=== PATIENT | male | born 1945 | race Caucasian/White ===

== ENCOUNTER 2020-11-21 12:53 | Emergency (ER) | payer OTHER ==
[2020-11-21 13:59] LABS: Protime INR 1.38
[2020-11-21 14:00] LABS: Absolute Lymphocytes (CBC) 0.7 K/uL (0.7-4.9); Basophils % 1.2 % (0-1.3); Hematocrit 36.2 % (39.6-49.0); Lymphocytes % 13.9 % (15.3-44.8); MPV 10.9 fL (7.6-11.3); RBC Red Blood Cell Count 3.59 M/uL (4.33-5.43)
--- NOTE | 2020-11-21 14:10 | RAD REPORT ---
EXAM DESCRIPTION: RAD - Chest Single View - 11/21/2020 1:51 pm CLINICAL HISTORY: near syncope Chest pain. COMPARISON: No comparisons FINDINGS: Portable technique limits examination quality. The lungs are grossly clear. The heart is normal in size. No displaced fractures. IMPRESSION: No acute intrathoracic process suspected.
--- NOTE | 2020-11-21 14:11 | RAD REPORT ---
EXAM DESCRIPTION: RAD - Hip Left 2 View - 11/21/2020 1:51 pm CLINICAL HISTORY: PAIN COMPARISON: <Comparisons> FINDINGS: Mild osteoarthritis affects the left hip. No fracture, dislocation or AVN.
[2020-11-21 14:18] LABS: ALT/SGPT 58 U/L (12-78); AST/SGOT 58 U/L (15-37); Albumin 3.1 g/dL (3.4-5.0); Alkaline Phosphatase 164 U/L (45-117); BUN Blood Urea Nitrogen 26 mg/dL (7-18); Bicarbonate 25 mmol/L (21-32); Bilirubin Direct 0.5 mg/dL (0-0.2); Bilirubin Total 1.3 mg/dL (0.2-1.0); Creatine Phosphokinase 44 U/L (39-308); Glucose Level 334 mg/dL (74-106); NT PRO-BNP 102 pg/mL (<450); Potassium 4.2 mmol/L (3.5-5.1); Protein, Total 7.1 g/dL (6.4-8.2); Sodium Level 136 mmol/L (136-145); Troponin (Emerg Dept Use Only) < 0.02 ng/mL (0.0-0.045)
[2020-11-21 14:21] LABS: Magnesium 1.4 mg/dL (1.8-2.4)
[2020-11-21] MEDS ORDERED: NA CHLORIDE 0.9% 1,000 ML ONE (14:43)
[2020-11-21] MEDS ORDERED: MAGNESIUM SULFATE 1 gm IVPB 1 GM/100 ML BAG IV ONE (15:06)
[2020-11-21] MEDS ORDERED: NA CHLORIDE 0.9% 500 ML ONE (17:04)
--- NOTE | 2020-11-21 17:54 | ER ---
Nurse's Notes [facility] Name: Carlos Salgado Age: 75 yrs Sex: Male : 1945 Arrival Date: 11/21/2020 Time: 12:54 Bed 15 Private MD: Diagnosis: Dehydration;Orthostatic hypotension;Contusion of left hip;Fall (on) (from) unspecified stairs and steps Presentation: 11/21 12:59 Chief complaint: Patient states: Got over heated while walking to go fishing with ll1 family just [employer]. Legs became wobbly, and fell off 3 foot bridge. Fell onto buttocks, denies pain. Denies LOC or head injury. Feels weak and lethargic since. Coronavirus screen: Client denies travel out of the [place] in the last 14 days. At this time, the client does not indicate any symptoms associated with coronavirus-19. Ebola Screen: Patient denies travel to an Ebola-affected area in the 21 days before illness onset. Initial Sepsis Screen: Does the patient meet any 2 criteria? No. Patient's initial sepsis screen is negative. Does the patient have a suspected source of infection? No. Patient's initial sepsis screen is negative. Risk Assessment: Do you want to hurt yourself or someone else? Patient reports no desire to harm self or others. Onset of symptoms was November 21, 2020. 12:59 Method Of Arrival: Wheelchair ll1 12:59 Acuity: ALEXANDER 3 ll1 Historical: - Allergies: 13:02 No Known Allergies; ll1 - PMHx: 13:02 Diabetes - NIDDM; Hypertension; ll1 - PSHx: 13:02 Appendectomy; topical skin moles removed; ll1 - Immunization history:: Client reports receiving the 1st dose of the Covid vaccine, Flu vaccine is up to date. - Social history:: Smoking status: Patient/guardian denies using tobacco, the patient reports quitting approximately 40 years ago. Screenin:34 Abuse screen: Denies threats or abuse. Denies injuries from another. Nutritional zb screening: No deficits noted. Tuberculosis screening: No symptoms or risk factors identified. Fall Risk Fall in past 12 months (25 points). No secondary diagnosis (0 pts). IV access (20 points). Ambulatory Aid- None/Bed Rest/Nurse Assist (0 pts). Gait- Weak (10 pts.). Mental Status- Oriented to own ability (0 pts). Total Tejeda Fall Scale indicates Low Risk Score (25-44 pts). Fall prevention measures have been instituted. Side Rails Up X 2 Placed close to Nursing Station Frequent Obs/Assesments occuring Family Present and informed to notify staff if they need to leave bedside As available Patient and Family Educated on Fall Prevention Program and strategies. Assessment: 13:55 General: Appears in no apparent distress. uncomfortable, Behavior is calm, cooperative. zb Pain: Complains of pain in left hip Pain currently is 2 out of 10 on a pain scale. Quality of pain is described as aching, Pain began suddenly, 1 day ago. Neuro: Level of Consciousness is awake, alert, obeys commands, Oriented to person, place, time, situation. Neuro: Moves all extremities. Full function Speech is normal, Pupils are PERRLA, Reports a syncopal episode weakness Denies blurred vision. Cardiovascular: Capillary refill < 3 seconds Patient's skin is warm and dry. Respiratory: Airway is patent Respiratory effort is even, unlabored, Respiratory pattern is regular, symmetrical. GI: No deficits noted. : No deficits noted. Derm: Skin is intact, is healthy with good turgor, Skin is flushed. Musculoskeletal: Circulation, motion, and sensation intact. Range of motion: intact in all extremities. 14:30 Reassessment: Patient appears in no apparent distress at this time. Patient is alert, zb oriented x 3, equal unlabored respirations, skin warm/dry/pink. Patient is alert/active/playful, equal unlabored respirations, skin warm/dry/pink. 15:19 Reassessment: ECP order 2nd NS 500ml. zb 16:05 Reassessment: Patient appears in no apparent distress at this time. Patient and/or zb family updated on plan of care and expected duration. Pain level reassessed. Patient is alert, oriented x 3, equal unlabored respirations, skin warm/dry/pink. Patient states feeling better. Patient states symptoms have improved. Vital Signs: 12:59 BP 148 / 65; Pulse 85; Resp 18; Temp 99.7; Pulse Ox 97% on R/A; Weight 95.25 kg; Pain ll1 0/10; 13:19 BP 137 / 90 Supine; Pulse 80; Resp 16; Pulse Ox 95% on R/A; zb 13:22 BP 127 / 56 Sitting; Pulse 84; Resp 16; Pulse Ox 100% ; zb 13:23 BP 100 / 51 Standing; Pulse 86; Resp 16; Pulse Ox 96% on R/A; zb 15:18 BP 133 / 90; Pulse 79; Resp 16; Pulse Ox 96% on R/A; zb 16:05 BP 158 / 85; Pulse 81; Resp 16; Pulse Ox 95% on R/A; zb 16:20 BP 149 / 78 Supine; Pulse 81; Resp 16; Pulse Ox 95% on R/A; zb 16:22 BP 138 / 64 Sitting; Pulse 80; Resp 16; Pulse Ox 95% on R/A; zb 16:23 BP 134 / 60; Pulse 81; Resp 16; Pulse Ox 96% on R/A; zb 18:09 BP 151 / 74; Pulse 84; Resp 16; Pulse Ox 100% on R/A; zb ED Course: 12:54 Patient arrived in ED. as 13:01 Triage completed. ll1 13:02 Arm band placed on Patient placed in an exam room, on a stretcher. ll1 13:03 Estefani Coates RN is Primary Nurse. zb 13:04 Ben Calvo NP is PHCP. pm1 13:04 Liborio Cabezas MD is Attending Physician. pm1 13:30 Initial lab(s) drawn, by me, sent to lab. Inserted saline lock: 20 gauge in right zb antecubital area, using aseptic technique. Blood collected. 13:34 Patient has correct armband on for positive identification. Bed in low position. Call zb light in reach. Side rails up X 1. Pulse ox on. NIBP on. engine monitor on. Door closed. Noise minimized. 13:50 XRAY Chest (1 view) In Process Unspecified. EDMS 13:50 Hip Left 2 View XRAY In Process Unspecified. EDMS 18:08 No provider procedures requiring assistance completed. IV discontinued, intact, zb bleeding controlled, No redness/swelling at site. Pressure dressing applied. Administered Medications: 14:27 Drug: NS 0.9% 500 ml Route: IV; Rate: bolus; Site: right forearm; zb 15:17 Follow up: Response: No adverse reaction; Marked relief of symptoms; IV Status: zb Completed infusion; IV Intake: 500ml 14:52 Drug: Magnesium Sulfate 1 grams Route: IVPB; Infused Over: 1 hrs; Site: right forearm; zb 16:04 Follow up: Response: No adverse reaction; IV Status: Completed infusion; IV Intake: zb 100ml 15:14 Drug: NS 0.9% 500 ml Route: IV; Rate: bolus; Site: right forearm; zb 16:04 Follow up: Response: No adverse reaction; Marked relief of symptoms; IV Status: zb Completed infusion; IV Intake: 500ml 17:06 Drug: NS 0.9% 500 ml Route: IV; Rate: bolus; Site: right forearm; zb 18:08 Follow up: Response: No adverse reaction; IV Status: Completed infusion; IV Intake: zb 500ml Intake: 15:17 IV: 500ml; Total: 500ml. zb 16:04 IV: 500ml; Total: 1000ml. zb 16:04 IV: 100ml; Total: 1100ml. zb 18:08 IV: 500ml; Total: 1600ml. zb Outcome: 17:53 Discharge ordered by MD. pm1 18:08 Discharged to home ambulatory, with family. zb 18:08 Condition: stable 18:08 Discharge instructions given to patient, family, Instructed on discharge instructions, follow up and referral plans. Demonstrated understanding of instructions, follow-up care. 18:09 Patient left the ED. zb Signatures: Dispatcher [employer] EDMS Vy Lozano Patrick, NP SERVER ADMINISTRATOR pm1 Chaya Douglas RN RN ll1 Estefani Coates RN RN zb Corrections: (The following items were deleted from the chart) 13:09 12:59 Chief complaint: Patient states: Got over heated, legs became wobbly, and fell ll1 off 3 foot bridge. Fell onto buttocks, denies pain. Denies LOC. Feels weak and lethargic since. ll1 16:05 16:05 Reassessment: Patient appears in no apparent distress at this time. Patient zb and/or family updated on plan of care and expected duration. Pain level reassessed. Patient is alert, oriented x 3, equal unlabored respirations, skin warm/dry/pink. zb
--- NOTE | 2020-11-21 17:54 | EDPHYS ---
Physician Documentation [facility] Name: Carlos Salgado Age: 75 yrs Sex: Male : 1945 Arrival Date: 11/21/2020 Time: 12:54 Bed 15 Private MD: ED Physician Liborio Cabezas HPI: 11/21 13:09 This 75 yrs old Male presents to ER via Wheelchair with complaints of Heat pm1 Exposure, Fall Injury. 13:09 The patient or guardian reports pain. that occurred outdoors, sustained from fall from pm1 walkway There is no obvious deformity, The patient is able to self ambulate. The patient is able to bear their full body weight. There is no radiation of the patient's discomfort. The complaints affect the left hip. Onset: The symptoms/episode began/occurred today. Modifying factors: The symptoms are alleviated by remaining still, the symptoms are aggravated by nothing. Associated signs and symptoms: Loss of consciousness: the patient experienced no loss of consciousness, Pertinent positives: Dizziness with changing position. Severity of symptoms: in the emergency department the symptoms have improved. The patient has not recently seen a physician. Patient was walking outside to go fishing. As he changing position getting ready to get of a walkway, he felt dizzy and fell onto his left side and hip. No headache, head injury, neck pain, LOC. Historical: - Allergies: 13:02 No Known Allergies; ll1 - PMHx: 13:02 Diabetes - NIDDM; Hypertension; ll1 - PSHx: 13:02 Appendectomy; topical skin moles removed; ll1 - Immunization history:: Client reports receiving the 1st dose of the Covid vaccine, Flu vaccine is up to date. - Social history:: Smoking status: Patient/guardian denies using tobacco, the patient reports quitting approximately 40 years ago. ROS: 13:09 Constitutional: Negative for fever, chills, and weight loss, Eyes: Negative for injury, pm1 pain, redness, and discharge, ENT: Negative for injury, pain, and discharge, Neck: Negative for injury, pain, and swelling, Cardiovascular: Negative for chest pain, palpitations, and edema, Respiratory: Negative for shortness of breath, cough, wheezing, and pleuritic chest pain, Abdomen/GI: Negative for abdominal pain, nausea, vomiting, diarrhea, and constipation, Back: Negative for injury and pain. 13:09 Skin: Negative for injury, rash, and discoloration. 13:09 MS/extremity: Positive for pain, of the left hip, Negative for decreased range of motion, deformity. 13:09 Neuro: Positive for dizziness, Negative for numbness, tingling. Exam: 13:09 Constitutional: This is a well developed, well nourished patient who is awake, alert, pm1 and in no acute distress. Head/Face: Normocephalic, atraumatic. 13:09 Back: No spinal tenderness. No costovertebral tenderness. Full range of motion. Skin: Warm, dry with normal turgor. Normal color with no rashes, no lesions, and no evidence of cellulitis. 13:09 Eyes: Exam is negative for acute changes, Extraocular movements: intact throughout, Conjunctiva: normal. 13:09 ENT: Exam is negative for acute changes, Mouth: Lips: normal, Oral mucosa: normal, pink and intact, moist. 13:09 Neck: Exam negative for acute changes, External neck: is normal, C-spine: vertebral tenderness, is not appreciated, ROM/movement: is normal. 13:09 Chest/axilla: Exam negative for acute changes, Inspection: normal, Palpation: is normal, no crepitus, no tenderness. 13:09 Cardiovascular: Exam negative for acute changes, Rate: normal, Rhythm: regular, Pulses: no pulse deficits are appreciated, Heart sounds: normal, normal S1and S2. 13:09 Respiratory: Exam negative for acute changes, respiratory distress, shortness of breath, Breath sounds: are clear throughout. 13:09 Abdomen/GI: Exam negative for acute changes, Inspection: abdomen appears normal, Palpation: abdomen is soft and non-tender, in all quadrants. 13:09 Neuro: Orientation: is normal, Mentation: is normal, Motor: is normal, moves all fours, Sensation: is normal, no obvious gross deficits. Vital Signs: 12:59 BP 148 / 65; Pulse 85; Resp 18; Temp 99.7; Pulse Ox 97% on R/A; Weight 95.25 kg; Pain ll1 0/10; 13:19 BP 137 / 90 Supine; Pulse 80; Resp 16; Pulse Ox 95% on R/A; zb 13:22 BP 127 / 56 Sitting; Pulse 84; Resp 16; Pulse Ox 100% ; zb 13:23 BP 100 / 51 Standing; Pulse 86; Resp 16; Pulse Ox 96% on R/A; zb 15:18 BP 133 / 90; Pulse 79; Resp 16; Pulse Ox 96% on R/A; zb 16:05 BP 158 / 85; Pulse 81; Resp 16; Pulse Ox 95% on R/A; zb 16:20 BP 149 / 78 Supine; Pulse 81; Resp 16; Pulse Ox 95% on R/A; zb 16:22 BP 138 / 64 Sitting; Pulse 80; Resp 16; Pulse Ox 95% on R/A; zb 16:23 BP 134 / 60; Pulse 81; Resp 16; Pulse Ox 96% on R/A; zb 18:09 BP 151 / 74; Pulse 84; Resp 16; Pulse Ox 100% on R/A; zb MDM: 13:06 Patient medically screened. pm1 17:51 Data reviewed: vital signs. Data interpreted: Pulse oximetry: on room air is 96 %. pm1 Interpretation: normal. Counseling: I had a detailed discussion with the patient and/or guardian regarding: the historical points, exam findings, and any diagnostic results supporting the discharge/admit diagnosis, lab results, radiology results, the need for outpatient follow up, to return to the emergency department if symptoms worsen or persist or if there are any questions or concerns that arise at home. 17:51 ED course: Patient with orthostasis present with orthostatic blood pressures, labs pm1 supporting dehydration, and history reporting dizziness with changing position. Patient symptoms resolved with rehydration and orthostasis resolved. Therefore with discharge the patient home. 11/21 13:08 Order name: Basic Metabolic Panel pm1 11/21 13:08 Order name: CBC with Diff; Complete Time: 14:26 pm1 11/21 13:08 Order name: LFT's; Complete Time: 14:26 pm1 11/21 13:08 Order name: Magnesium; Complete Time: 14:26 pm1 11/21 13:08 Order name: NT PRO-BNP; Complete Time: 14:26 pm1 11/21 13:08 Order name: PT-INR; Complete Time: 14:26 pm1 11/21 13:08 Order name: Troponin (emerg Dept Use Only); Complete Time: 14:26 pm1 11/21 13:08 Order name: XRAY Chest (1 view); Complete Time: 14:26 pm1 11/21 13:08 Order name: CPK; Complete Time: 14:26 pm1 11/21 13:09 Order name: Basic Metabolic Panel; Complete Time: 14:26 EDMS 11/21 13:17 Order name: Hip Left 2 View XRAY; Complete Time: 14:26 pm1 11/21 13:07 Order name: Orthostatic Blood Pressure; Complete Time: 13:55 pm1 11/21 13:08 Order name: EKG; Complete Time: 13:09 pm1 11/21 13:08 Order name: Cardiac monitoring; Complete Time: 13:55 pm1 11/21 13:08 Order name: EKG - Nurse/Tech; Complete Time: 14:25 pm1 11/21 13:08 Order name: IV Saline Lock; Complete Time: 13:55 pm1 11/21 13:08 Order name: Labs collected and sent; Complete Time: 13:55 pm1 11/21 13:08 Order name: O2 Per Protocol; Complete Time: 13:55 pm1 11/21 13:08 Order name: O2 Sat Monitoring; Complete Time: 13:55 pm1 11/21 16:10 Order name: Orthostatic Blood Pressure; Complete Time: 16:27 pm1 Administered Medications: 14:27 Drug: NS 0.9% 500 ml Route: IV; Rate: bolus; Site: right forearm; zb 15:17 Follow up: Response: No adverse reaction; Marked relief of symptoms; IV Status: zb Completed infusion; IV Intake: 500ml 14:52 Drug: Magnesium Sulfate 1 grams Route: IVPB; Infused Over: 1 hrs; Site: right forearm; zb 16:04 Follow up: Response: No adverse reaction; IV Status: Completed infusion; IV Intake: zb 100ml 15:14 Drug: NS 0.9% 500 ml Route: IV; Rate: bolus; Site: right forearm; zb 16:04 Follow up: Response: No adverse reaction; Marked relief of symptoms; IV Status: zb Completed infusion; IV Intake: 500ml 17:06 Drug: NS 0.9% 500 ml Route: IV; Rate: bolus; Site: right forearm; zb 18:08 Follow up: Response: No adverse reaction; IV Status: Completed infusion; IV Intake: zb 500ml Disposition: 18:10 Co-signature as Attending Physician, Liborio Cabezas MD. rn Disposition: 11/21/20 17:53 Discharged to Home. Impression: Orthostatic hypotension, Dehydration, Contusion of left hip, Fall (on) (from) unspecified stairs and steps. - Condition is Stable. - Discharge Instructions: Contusion, Dehydration, Elderly, Fall Prevention in the Home, Orthostatic Hypotension, Rehydration, Elderly. - Medication Reconciliation Form, Thank You Letter, Antibiotic Education, Prescription Opioid Use form. - Follow up: Emergency Department; When: As needed; Reason: Worsening of condition. Follow up: Private Physician; When: 2 - 3 days; Reason: Recheck today's complaints, Continuance of care, Re-evaluation by your physician. - Problem is new. - Symptoms have improved. Signatures: Dispatcher [employer] EDMS Liborio Cabezas, Ben Oreilly MD, rn, MEDICAL RECEPTIONIST MEDICAL ASSISTANT MEDICAL RECEPTIONIST MEDICAL ASSISTANT pm1 Chaya Douglas RN RN ll1 Estefani Coates RN RN [email or web address] Corrections: (The following items were deleted from the chart) 18:09 17:53 11/21/2020 17:53 Discharged to Home. Impression: Orthostatic zb hypotensionDehydration; Contusion of left hip; Fall (on) (from) unspecified stairs and steps. Condition is Stable. Forms are Medication Reconciliation Form, Thank You Letter, Antibiotic Education, Prescription Opioid Use. Follow up: Emergency Department; When: As needed; Reason: Worsening of condition. Follow up: Private Physician; When: 2 - 3 days; Reason: Recheck today's complaints, Continuance of care, Re-evaluation by your physician. Problem is new. Symptoms have improved. pm1
[2020-11-21 18:22] VITALS: TEMP 99.7
[2020-11-21 18:35] VITALS: BP 151/74; O2SAT 100
== END 2020-11-21 18:09 | disposition home or self-care (01) ==
LOC: ER 12:53
DX: E86.0 Dehydration (principal); I95.1 Orthostatic hypotension; S70.02XA Contusion of left hip, initial encounter; W10.9XXA Fall (on) (from) unspecified stairs and steps, initial encounter; Y92.89 Other specified places as the place of occurrence of the external cause
CPT/HCPCS: 96365; 96367; 93005; 85025; 80048; 36415; 83735; 82550; 85610; 80076; 84484; 83880; 71045; 73502; 99284; J3475; J7040; J7030

== ENCOUNTER 2023-03-19 15:29 | Inpatient (IN) | payer OTHER ==
--- OUTSIDE RECORDS SUMMARY | 2023-03-19 15:33 | XMS REPORT | Continuity of Care Document ---
:1945 Author Organization [facility] t Address [address] [place] [address] Care Team Providers Name Role Phone Celia Huynh MD Primary Care Physician Catarino Attending Clinician Unavailable Celia Huynh MD Attending Clinician JANINE RUIZ Attending Clinician Unavailable Celia Huynh Attending Clinician Unavailable Catarino Admitting Clinician Unavailable JANINE RUIZ Admitting Clinician Unavailable Celia Huynh Admitting Clinician Unavailable Payers Payer Name Policy Type Policy Number Effective Date Expiration Date Cleve lugo [facility] [id number] [facility] [place] [place] [facility] [id number] [facility]) Problems Condition Condition Condition Status Onset Resolution Last Treating Co mments Source Name Details Category Date Date Treatment Clinician Date Pancytopen Pancytopen Problem Active [facility] 01-19 Family 00:00: Practic 00 e Benign Benign Problem Active [facility] hypertensi Hypertensi 01-19 Fa leti ve heart ve Heart 00:00: Practi c disease Disease 00 e without without congestive Congestive heart Heart failure Failure Congestive Congestive Problem Active [facility] heart Heart 01-19 Family failure Failure 00:00: Practic 00 e Cirrhosis Cirrhosis Problem Active Adrianna jana - - 8-11 Family non-alcoho Non-alcoho 00:00: Pr actic lic lic 00 e Dyspnea on Dyspnea on Problem Active [facility] exertion Exertion 8-11 Family 00:00: Practic 00 e Depression Depression Problem Active [facility] screening Screening 8-11 Fami ly positive Positive 00:00: Practi c 00 e Obstructiv Obstructiv Problem Active [facility] e sleep e Sleep 7-27 Family apnea of Apnea of 00:00: Practi c adult Adult 00 e 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 Diabetes 4-13 Family mellitus Mellitus 00:00: Practi c 00 e Hypertensi Hypertensi Problem Active [facility] ve heart ve Heart 4-13 Family disease Disease 00:00: Practic with with 00 e congestive Congestive heart Heart failure Failure 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 [facility] purpura Purpura 0-05 Family 00:00: Practic 00 e Edema of Edema of Problem Active [facility] lower Lower 9-07 Family extremity Extremity 00:00: Prac tic 00 e Diabetic Diabetic Problem Active [facility] peripheral Peripheral 6-27 Fa [facility] neuropathy Neuropathy 00:00: Pr actic 00 e 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 00:00: Pr 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 Due to 00 e diabetes Diabetes mellitus Mellitus Mild Mild Problem Active [facility] intermitte Intermitte 5-13 Fa leti nt asthma nt Asthma 00:00: Prac tic 00 e Mixed Mixed Problem Active [facility] hyperlipid Hyperlipid 5-10 Fa leti emia emia 00:00: Practic 00 e Cirrhosis Cirrhosis Problem Active Adrianna jana of liver of Liver 5-10 Family 00:00: Practic 00 e Pain in Pain in Problem Active [facility] lower limb Lower Limb 5-10 Fa leti 00:00: Practic 00 e Falls Falls Problem Active [facility] 5-10 Family 00:00: Practic 00 e Hyperglyce Hyperglyce Problem Active [facility] damaso due to damaso Due to 5-10 Fa leti type 2 Type 2 00:00: Practic diabetes Diabetes 00 e mellitus Mellitus Overactive Overactive Problem Active [facility] bladder Bladder 5-10 Family 00:00: Practic 00 e Type II Type II Problem Active 2013-06 [facility] diabetes Diabetes -17 Family mellitus Mellitus 00:00: Practi c uncontroll Uncontroll 00 e ed ed Vitamin D Vitamin D Problem Active 2013-06 Adrianna bates deficiency Deficiency -17 Fa leti 00:00: Practic 00 e Hyperlipid Hyperlipid Problem Active 2013-06 [facility] emia emia 17 Family 00:00: Practic 00 e Gout Gout Problem Active 2013-06 [facility] 06-27 Family 00:00: Practic 00 e Disorder Disorder Problem Active 2013-06 [facility] of of 06-27 Family hematopoie Hematopoie 00:00: Pr actic tic tic 00 e structure Structure Anxiety Anxiety Problem Active 2013-06 [facility] state State 06-27 Family 00:00: Practic 00 e Depressive Depressive Problem Active 2013-06 [facility] disorder Disorder 06-27 Family 00:00: Practic 00 e 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 [facility] neoplasm Neoplasm 06-27 Family of skin of Skin 00:00: Practic 00 e Asthma Asthma Problem Active 2013-06 [facility] without without 06-27 Family status Status 00:00: Practic asthmaticu Asthmaticu 00 e s s Insomnia Insomnia Problem Active 2013-06 [facility] 06-27 Family 00:00: Practic 00 e Obstructiv Obstructiv Problem Active 2013-06 [facility] e sleep e Sleep 06-27 Family apnea Apnea 00:00: Practic syndrome Syndrome 00 e Gastroesop Gastroesop Problem Active 2013-06 [facility] hageal hageal 06-27 Family reflux Reflux 00:00: Practic disease Disease 00 e Constipati Constipati Problem Active 2013-06 [facility] on on 06-27 Family 00:00: Practic 00 e Kidney Kidney Problem Active 2013-06 [facility] stone Stone 17 Family 00:00: Practic 00 e Corns and Corns and Problem Active 2013-06 Adrianna bates callus Callus 06-27 Family 00:00: Practic 00 e Osteoarthr Osteoarthr Problem Active 2013-06 [facility] itis itis 06-27 Family 00:00: Practic 00 e Low back Low Back Problem Active 2013-06 [facility] pain Pain 06-27 Family 00:00: Practic 00 e Dyspnea Dyspnea Problem Active 2013-06 [facility] 06-27 Family 00:00: Practic 00 e Proteinuri Proteinuri Problem Active 2013-06 V renetta holly 1-17 Family 00:00: Practic 00 e Allergies, Adverse Reactions, Alerts This patient has no known allergies or adverse reactions. Family History Family Member Diagnosis Comments Start Date Stop Date Source Natural father Heart attack [facility] Natural mother Liver disease [facility] Social History Social Habit Start Date Stop Date Quantity Comments Source [facility] of tobacco [facility] History of Social 2022-01-18 2022-01-[address] function 00:00:00 00:00:00 Hospital Alcohol intake 2022-01-18 2022-01-18 Current drinker [facility] 00:00:00 00:00:00 of [facility] (finding) Tobacco Comment 2016-07-30 2016-07-30 pt smoke in [facility] 00:00:00 00:00:[address] [place] [address] Alcohol Comment 2016-07-30 2016-07-30 2-[address] 00:00[facility]00 [facility] Sex Assigned At [birth year] [employer] 00:00:00 00:00:00 [facility] Smoking Status Start Date Stop Date Source Former Smoker [facility] P carina Medications Ordered Filled Start Stop Current Ordering Indication Dosage Frequency Signature Comments Components Source Medication Medication Date Date Medication? Clinician (SIG) Name Name allopurinol Yes 300mg QD Take 300 M [facility]i (ZYLOPRIM) 8-[address] 300 MG 12:50: [facility] tablet 05 every l evening. cholecalcif Yes 2000U QD Take 2,000 [facility] tawnya, 8-[address] vitamin D3, 12:50: mouth Hospi ta (VITAMIN 05 every l D3) 2,000 evening. unit capsule capsule exenatide Yes Inject Method i microsphere 8-[address] s 2 mg 12:50: skin. Hospita suspension, 05 l extended rel recon gemfibrozil 0 Yes 600mg Q.5D Take 600 M [facility]i (LOPID) 600 8-[address] MG tablet 12:50: mouth 2 Hospi ta 05 (two) l times a day before meals. glipiZIDE 0 Yes 10mg QD Take 10 mg [facility] (GLUCOTROL) 8-[address] 10 MG 12:50: daily. Hospita tablet 05 l lisinopril 0 Yes 10mg QD Take 10 mg M ethodi (PRINIVIL,Z 8- by mouth st ESTRIL) 10 12:50: every Hospit a mg tablet 05 evening. l meloxicam 0 Yes 7.5mg QD Take 7.5 [facility] (MOBIC) 7.5 8-[address] mg tablet 12:50: mouth [facility]ospita 05 every l evening. multivitami 2021-0 Yes 1{tbl} QD Take 1 [facility] n 8- tablet by st (THERAGRAN) 12:50: mouth Hospi ta tablet 05 daily. l pantoprazol 0 Yes 40mg QD Take 40 mg [facility] 8-[address] (PROTONIX) 12:50: daily. Hospi ta 40 MG EC 05 l tablet potassium Yes 8meq QD Take 8 mEq [facility] chloride [address] (MICRO-K) 8 12:50: every Hospi ta mEq CR 05 evening. l capsule pravastatin Yes 10mg QD Take 10 mg [facility] (PRAVACHOL) 8- by mouth [facility] 10 MG 12:50: nightly. Hospita tablet 05 l sertraline 0 Yes 100mg QD Take 100 [facility] (ZOLOFT) 8-[address] 100 MG 12:50: mouth [facility]ospita tablet 05 every l evening. albuterol Yes 2{puff} Q6H Inhale 2 M ethodi (PROAIR 8-[address] HFA,PROVENT 12:50: every 6 Hos cristopher [place] 05 (six) l HFA,VENTOLI hours as N HFA) 90 needed for mcg/actuati wheezing. on inhaler docusate 0 Yes 100mg Q.5D Take 100 Meth ana cristina sodium 8-[address] (COLACE) 12:50: mouth 2 Hospit a 100 MG 05 (two) l capsule times a day as needed for constipati on. furosemide 0 Yes 20mg QD Take 20 mg M ethodi (LASIX) 20 8-[address] mg tablet 12:50: daily. Hospit a 05 l traMADol 2022-0 Yes 50mg Q6H Take 50 mg Met [facility] (ULTRAM) 50 -[address] mg tablet 12:50: every 6 Hospi ta 05 (six) l hours as needed for moderate pain. sAXagliptin Yes 1{tbl} Q.5D Take 1 Me [facility] -metformin 01-[address] 2.5-1,000 12:50: mouth 2 Hospi ta mg tablet, 05 (two) l ER times a multiphase day. 24 hr allopurinol allopurinol No 1 Q1D allopurino [facility] 300 mg 300 mg l 300 mg Family tablet Take tablet Take tablet Practic 1 tablet 1 tablet Take 1 e every day every day tablet by oral by oral every day route. route. by oral route. gemfibrozil gemfibrozil No 1 BID gemfibrozi [facility] 600 mg 600 mg l 600 mg Family tablet Take tablet Take tablet Practic 1 tablet 1 tablet Take 1 e twice a day twice a day tablet by oral by oral twice a route. route. day by oral route. Lantus Lantus No 35unit( Q1D Lantus [facility] Solostar Solostar s) Solostar Fam rima U-100 U-100 U-100 Practic Insulin 100 Insulin 100 Insulin e unit/mL (3 unit/mL (3 100 mL) mL) unit/mL (3 subcutaneou subcutaneou mL) s pen s pen subcutaneo Inject 35 Inject 35 us pen units every units every Inject 35 day by day by units subcutaneou subcutaneou every day s route at s route at by dinner. dinner. subcutaneo us route at dinner. lisinopril lisinopril No 1 BID lisinopril [facility] 10 mg 10 mg 10 mg Family tablet Take tablet Take tablet Practic 1 tablet 1 tablet Take 1 e twice a day twice a day tablet by oral by oral twice a route. route. day by oral route. metformin metformin No 1 BID metformin [facility] 1,000 mg 1,000 mg 1,000 mg Fam rima tablet Take tablet Take tablet Practic 1 tablet 1 tablet Take 1 e twice a day twice a day tablet by oral by oral twice a route. route. day by oral route. oxybutynin oxybutynin No 1 Q1D oxybutynin [facility] chloride ER chloride ER chloride Family 5 mg 5 mg ER 5 mg Practic tablet,exte tablet,exte tablet,ext e nded nded ended release 24 release 24 release 24 hr Take 1 hr Take 1 hr Take 1 tablet tablet tablet every day every day every day by oral by oral by oral route. route. route. pravastatin pravastatin No 1 Q1D pravastati [facility] 10 mg 10 mg n 10 mg Family tablet Take tablet Take tablet Practic 1 tablet 1 tablet Take 1 e every day every day tablet by oral by oral every day route at route at by oral bedtime. bedtime. route at bedtime. ProAir HFA ProAir HFA No 2puff(s QID ProAir HFA [facility] 90 90 ) 90 Family mcg/actuati mcg/actuati mcg/actuat Practic on aerosol on aerosol ion e inhaler inhaler aerosol Inhale 2 Inhale 2 inhaler puffs 4 puffs 4 Inhale 2 times a day times a day puffs 4 by by times a inhalation inhalation day by route. route. inhalation route. Protonix 40 Protonix 40 No 1 Q1D Protonix [facility] mg mg 40 mg Family tablet,renae tablet,renae tablet,del Practic yed release yed release ayed e Take 1 Take 1 release tablet tablet Take 1 every day every day tablet by oral by oral every day route. route. by oral route. Rybelsus 7 Rybelsus 7 No 1 Q1D Rybelsus 7 [facility] mg tablet mg tablet mg tablet Family Take 1 Take 1 Take 1 Practic tablet tablet tablet e every day every day every day by oral by oral by oral route. route. route. spironolact spironolact spironolac [facility] one 50 mg one 50 mg tone 50 mg Family tablet TAKE tablet TAKE tablet Practic 1 TABLET 1 TABLET TAKE 1 e EVERY DAY EVERY DAY TABLET BY ORAL BY ORAL EVERY DAY ROUTE IN ROUTE IN BY ORAL THE THE ROUTE IN MORNING. MORNING. THE MORNING. Toprol XL Toprol XL No 1 BID Toprol XL [facility] 50 mg 50 mg 50 mg Family tablet,exte tablet,exte tablet,ext Practic nded nded ended e release release release Take 1 Take 1 Take 1 tablet tablet tablet twice a day twice a day twice a by oral by oral day by route. route. oral route. Vitamin D3 Vitamin D3 No 1capsul Q1D Vitamin D3 [facility] 25 mcg 25 mcg e(s) 25 mcg Family (1,000 (1,000 (1,000 Practic unit) unit) unit) e capsule capsule capsule Take 1 Take 1 Take 1 capsule capsule capsule every day every day every day by oral by oral by oral route. route. route. Wellbutrin Wellbutrin No 1 Q1D Wellbutrin [facility] XL 300 mg XL 300 mg XL 300 mg Family 24 hr 24 hr 24 hr Practic tablet, tablet, tablet, e extended extended extended release release release Take 1 Take 1 Take 1 tablet tablet tablet every day every day every day by oral by oral by oral route. route. route. Zoloft 100 Zoloft 100 No 1 Q1D Zoloft 100 [facility] mg tablet mg tablet mg tablet Family Take 1 Take 1 Take 1 Practic tablet tablet tablet e every day every day every day by oral by oral by oral route. route. route. allopurinol allopurinol No 1 Q1D allopurino [facility] 300 mg 300 mg l 300 mg Family tablet Take tablet Take tablet Practic 1 tablet 1 tablet Take 1 e every day every day tablet by oral by oral every day route. route. by oral route. furosemide furosemide No 1 Q1D furosemide [facility] 20 mg 20 mg 20 mg Family tablet Take tablet Take tablet Practic 1 tablet 1 tablet Take 1 e every day every day tablet by oral by oral every day route. route. by oral route. furosemide furosemide No furosemide [facility] 40 mg 40 mg 40 mg Family tablet TAKE tablet TAKE tablet Practic 1 TABLET BY 1 TABLET BY TAKE 1 e MOUTH EVERY MOUTH EVERY TABLET BY DAY DAY MOUTH EVERY DAY gemfibrozil gemfibrozil No 1 BID gemfibrozi [facility] 600 mg 600 mg l 600 mg Family tablet Take tablet Take tablet Practic 1 tablet 1 tablet Take 1 e twice a day twice a day tablet by oral by oral twice a route. route. day by oral route. Lantus Lantus No 35unit( Q1D Lantus [facility] Solostar Solostar s) Solostar Fam rima U-100 U-100 U-100 Practic Insulin 100 Insulin 100 Insulin e unit/mL (3 unit/mL (3 100 mL) mL) unit/mL (3 subcutaneou subcutaneou mL) s pen s pen subcutaneo Inject 35 Inject 35 us pen units every units every Inject 35 day by day by units subcutaneou subcutaneou every day s route at s route at by dinner. dinner. subcutaneo us route at dinner. lisinopril lisinopril No 1 Q1D lisinopril [facility] 10 mg 10 mg 10 mg Family tablet Take tablet Take tablet Practic 1 tablet 1 tablet Take 1 e every day every day tablet by oral by oral every day route. route. by oral route. metformin metformin No 1 BID metformin [facility] 1,000 mg 1,000 mg 1,000 mg Fam rima tablet Take tablet Take tablet Practic 1 tablet 1 tablet Take 1 e twice a day twice a day tablet by oral by oral twice a route. route. day by oral route. metoprolol metoprolol metoprolol [facility] succinate succinate succinate [facility] ER 50 mg ER 50 mg ER 50 mg Pra ctic tablet,exte tablet,exte tablet,ext e nded nded ended release 24 release 24 release 24 hr TAKE 1 hr TAKE 1 hr TAKE 1 TABLET BY TABLET BY TABLET BY MOUTH TWICE MOUTH TWICE MOUTH A DAY A DAY TWICE A DAY oxybutynin oxybutynin No 1 Q1D oxybutynin [facility] chloride ER chloride ER chloride [facility] 5 mg 5 mg ER 5 mg Practic tablet,exte tablet,exte tablet,ext e nded nded ended release 24 release 24 release 24 hr Take 1 hr Take 1 hr Take 1 tablet tablet tablet every day every day every day by oral by oral by oral route. route. route. pravastatin pravastatin No 1 Q1D pravastati [facility] 10 mg 10 mg n 10 mg Family tablet Take tablet Take tablet Practic 1 tablet 1 tablet Take 1 e every day every day tablet by oral by oral every day route at route at by oral bedtime. bedtime. route at bedtime. ProAir HFA ProAir HFA No 2puff(s QID ProAir HFA [facility] 90 ) 90 Family mcg/actuati mcg/actuati mcg/actuat Practic on aerosol on aerosol ion e inhaler inhaler aerosol Inhale 2 Inhale 2 inhaler puffs 4 puffs 4 Inhale 2 times a day times a day puffs 4 by by times a inhalation inhalation day by route. route. inhalation route. Protonix 40 Protonix 40 No 1 Q1D Protonix [facility] mg mg 40 mg Family tablet,renae tablet,renae tablet,del Practic yed release yed release ayed e Take 1 Take 1 release tablet tablet Take 1 every day every day tablet by oral by oral every day route. route. by oral route. Rybelsus 7 Rybelsus 7 No 1 Q1D Rybelsus 7 [facility] mg tablet mg tablet mg tablet Family Take 1 Take 1 Take 1 Practic tablet tablet tablet e every day every day every day by oral by oral by oral route. route. route. spironolact spironolact No spironolac [facility] one 50 mg one 50 mg tone 50 mg Family tablet TAKE tablet TAKE tablet Practic 1 TABLET 1 TABLET TAKE 1 e EVERY DAY EVERY DAY TABLET BY ORAL BY ORAL EVERY DAY ROUTE IN ROUTE IN BY ORAL THE THE ROUTE IN MORNING. MORNING. THE MORNING. Vitamin D3 Vitamin D3 No 1capsul Q1D Vitamin D3 [facility] 25 mcg 25 mcg e(s) 25 mcg Family (1,000 (1,000 (1,000 Practic unit) unit) unit) e capsule capsule capsule Take 1 Take 1 Take 1 capsule capsule capsule every day every day every day by oral by oral by oral route. route. route. Wellbutrin Wellbutrin No 1 Q1D Wellbutrin [facility] XL 300 mg XL 300 mg XL 300 mg Family 24 hr 24 hr 24 hr Practic tablet, tablet, tablet, e extended extended extended release release release Take 1 Take 1 Take 1 tablet tablet tablet every day every day every day by oral by oral by oral route. route. route. Zoloft 100 Zoloft 100 No 1 Q1D Zoloft 100 [facility] mg tablet mg tablet mg tablet Family Take 1 Take 1 Take 1 Practic tablet tablet tablet e every day every day every day by oral by oral by oral route. route. route. allopurinol allopurinol No 1 Q1D allopurino [facility] 300 mg 300 mg l 300 mg Family tablet Take tablet Take tablet Practic 1 tablet 1 tablet Take 1 e every day every day tablet by oral by oral every day route. route. by oral route. furosemide furosemide No 1 Q1D furosemide [facility] 20 mg 20 mg 20 mg Family tablet Take tablet Take tablet Practic 1 tablet 1 tablet Take 1 e every day every day tablet by oral by oral every day route. route. by oral route. gemfibrozil gemfibrozil No 1 BID gemfibrozi [facility] 600 mg 600 mg l 600 mg Family tablet Take tablet Take tablet Practic 1 tablet 1 tablet Take 1 e twice a day twice a day tablet by oral by oral twice a route. route. day by oral route. Lantus Lantus No 35unit( Q1D Lantus [facility] Solostar Solostar s) Solostar Fam rima U-100 U-100 U-100 Practic Insulin 100 Insulin 100 Insulin e unit/mL (3 unit/mL (3 100 mL) mL) unit/mL (3 subcutaneou subcutaneou mL) s pen s pen subcutaneo Inject 35 Inject 35 us pen units every units every Inject 35 day by day by units subcutaneou subcutaneou every day s route at s route at by dinner. dinner. subcutaneo us route at dinner. lisinopril lisinopril No 1 Q1D lisinopril [facility] 10 mg 10 mg 10 mg Family tablet Take tablet Take tablet Practic 1 tablet 1 tablet Take 1 e every day every day tablet by oral by oral every day route. route. by oral route. metformin metformin No 1 BID metformin [facility] 1,000 mg 1,000 mg 1,000 mg Fam rima tablet Take tablet Take tablet Practic 1 tablet 1 tablet Take 1 e twice a day twice a day tablet by oral by oral twice a route. route. day by oral route. metoprolol metoprolol metoprolol [facility] succinate succinate succinate [facility] ER 50 mg ER 50 mg ER 50 mg Pra ctic tablet,exte tablet,exte tablet,ext e nded nded ended release 24 release 24 release 24 hr TAKE 1 hr TAKE 1 hr TAKE 1 TABLET BY TABLET BY TABLET BY MOUTH TWICE MOUTH TWICE MOUTH A DAY A DAY TWICE A DAY oxybutynin oxybutynin No 1 Q1D oxybutynin [facility] chloride ER chloride ER chloride [facility] 5 mg 5 mg ER 5 mg Practic tablet,exte tablet,exte tablet,ext e nded nded ended release 24 release 24 release 24 hr Take 1 hr Take 1 hr Take 1 tablet tablet tablet every day every day every day by oral by oral by oral route. route. route. pravastatin pravastatin No 1 Q1D pravastati [facility] 10 mg 10 mg n 10 mg Family tablet Take tablet Take tablet Practic 1 tablet 1 tablet Take 1 e every day every day tablet by oral by oral every day route at route at by oral bedtime. bedtime. route at bedtime. ProAir HFA ProAir HFA No 2puff(s QID ProAir HFA [facility] 90 90 ) 90 Family mcg/actuati mcg/actuati mcg/actuat Practic on aerosol on aerosol ion e inhaler inhaler aerosol Inhale 2 Inhale 2 inhaler puffs 4 puffs 4 Inhale 2 times a day times a day puffs 4 by by times a inhalation inhalation day by route. route. inhalation route. Protonix 40 Protonix 40 No 1 Q1D Protonix [facility] mg mg 40 mg Family tablet,renae tablet,renae tablet,del Practic yed release yed release ayed e Take 1 Take 1 release tablet tablet Take 1 every day every day tablet by oral by oral every day route. route. by oral route. Rybelsus 7 Rybelsus 7 No 1 Q1D Rybelsus 7 [facility] mg tablet mg tablet mg tablet Family Take 1 Take 1 Take 1 Practic tablet tablet tablet e every day every day every day by oral by oral by oral route. route. route. spironolact spironolact No spironolac [facility] one 50 mg one 50 mg tone 50 mg Family tablet TAKE tablet TAKE tablet Practic 1 TABLET 1 TABLET TAKE 1 e EVERY DAY EVERY DAY TABLET BY ORAL BY ORAL EVERY DAY ROUTE IN ROUTE IN BY ORAL THE THE ROUTE IN MORNING. MORNING. THE MORNING. Vitamin D3 Vitamin D3 No 1capsul Q1D Vitamin D3 [facility] 25 mcg 25 mcg e(s) 25 mcg [facility] (1,000 (1,000 (1,000 Practic unit) unit) unit) e capsule capsule capsule Take 1 Take 1 Take 1 capsule capsule capsule every day every day every day by oral by oral by oral route. route. route. Wellbutrin Wellbutrin No 1 Q1D Wellbutrin [facility] XL 300 mg XL 300 mg XL 300 mg Family 24 hr 24 hr 24 hr Practic tablet, tablet, tablet, e extended extended extended release release release Take 1 Take 1 Take 1 tablet tablet tablet every day every day every day by oral by oral by oral route. route. route. Zoloft 100 Zoloft 100 No 1 Q1D Zoloft 100 [facility] mg tablet mg tablet mg tablet Family Take 1 Take 1 Take 1 Practic tablet tablet tablet e every day every day every day by oral by oral by oral route. route. route. allopurinol allopurinol No 1 Q1D allopurino [facility] 300 mg 300 mg l 300 mg Family tablet Take tablet Take tablet Practic 1 tablet 1 tablet Take 1 e every day every day tablet by oral by oral every day route. route. by oral route. furosemide furosemide No 1 Q1D furosemide [facility] 20 mg 20 mg 20 mg Family tablet Take tablet Take tablet Practic 1 tablet 1 tablet Take 1 e every day every day tablet by oral by oral every day route. route. by oral route. gemfibrozil gemfibrozil No 1 BID gemfibrozi [facility] 600 mg 600 mg l 600 mg Family tablet Take tablet Take tablet Practic 1 tablet 1 tablet Take 1 e twice a day twice a day tablet by oral by oral twice a route. route. day by oral route. Lantus Lantus No 35unit( Q1D Lantus [facility] Solostar Solostar s) Solostar Fam rima U-100 U-100 U-100 Practic Insulin 100 Insulin 100 Insulin e unit/mL (3 unit/mL (3 100 mL) mL) unit/mL (3 subcutaneou subcutaneou mL) s pen s pen subcutaneo Inject 35 Inject 35 us pen units every units every Inject 35 day by day by units subcutaneou subcutaneou every day s route at s route at by dinner. dinner. subcutaneo us route at dinner. lisinopril lisinopril No 1 Q1D lisinopril [facility] 10 mg 10 mg 10 mg Family tablet Take tablet Take tablet Practic 1 tablet 1 tablet Take 1 e every day every day tablet by oral by oral every day route. route. by oral route. metformin metformin No 1 BID metformin [facility] 1,000 mg 1,000 mg 1,000 mg Fam rima tablet Take tablet Take tablet Practic 1 tablet 1 tablet Take 1 e twice a day twice a day tablet by oral by oral twice a route. route. day by oral route. metoprolol metoprolol metoprolol [facility] succinate succinate succinate Family ER 50 mg ER 50 mg ER 50 mg Pra ctic tablet,exte tablet,exte tablet,ext e nded nded ended release 24 release 24 release 24 hr TAKE 1 hr TAKE 1 hr TAKE 1 TABLET BY TABLET BY TABLET BY MOUTH TWICE MOUTH TWICE MOUTH A DAY A DAY TWICE A DAY oxybutynin oxybutynin No 1 Q1D oxybutynin [facility] chloride ER chloride ER chloride Family 5 mg 5 mg ER 5 mg Practic tablet,exte tablet,exte tablet,ext e nded nded ended release 24 release 24 release 24 hr Take 1 hr Take 1 hr Take 1 tablet tablet tablet every day every day every day by oral by oral by oral route. route. route. pravastatin pravastatin No 1 Q1D pravastati [facility] 10 mg 10 mg n 10 mg Family tablet Take tablet Take tablet [facility] 1 tablet 1 tablet Take 1 e every day every day tablet by oral by oral every day route at route at by oral bedtime. bedtime. route at bedtime. ProAir HFA ProAir HFA No 2puff(s QID ProAir HFA [facility] 90 90 ) 90 Family mcg/actuati mcg/actuati mcg/actuat Practic on aerosol on aerosol ion e inhaler inhaler aerosol Inhale 2 Inhale 2 inhaler puffs 4 puffs 4 Inhale 2 times a day times a day puffs 4 by by times a inhalation inhalation day by route. route. inhalation route. Protonix 40 Protonix 40 No 1 Q1D Protonix [facility] mg mg 40 mg Family tablet,renae tablet,renae tablet,del Practic yed release yed release ayed e Take 1 Take 1 release tablet tablet Take 1 every day every day tablet by oral by oral every day route. route. by oral route. Rybelsus 7 Rybelsus 7 No 1 Q1D Rybelsus 7 [facility] mg tablet mg tablet mg tablet Family Take 1 Take 1 Take 1 Practic tablet tablet tablet e every day every day every day by oral by oral by oral route. route. route. spironolact spironolact spironolac [facility] one 50 mg one 50 mg tone 50 mg Family tablet TAKE tablet TAKE tablet [facility] 1 TABLET 1 TABLET TAKE 1 e EVERY DAY EVERY DAY TABLET BY ORAL BY ORAL EVERY DAY ROUTE IN ROUTE IN BY ORAL THE THE ROUTE IN MORNING. MORNING. THE MORNING. Vitamin D3 Vitamin D3 No 1capsul Q1D Vitamin D3 [facility] 25 mcg 25 mcg e(s) 25 mcg [facility] (1,000 (1,000 (1,000 Practic unit) unit) unit) e capsule capsule capsule Take 1 Take 1 Take 1 capsule capsule capsule every day every day every day by oral by oral by oral route. route. route. Wellbutrin Wellbutrin No 1 Q1D Wellbutrin [facility] XL 300 mg XL 300 mg XL 300 mg Family 24 hr 24 hr 24 hr Practic tablet, tablet, tablet, e extended extended extended release release release Take 1 Take 1 Take 1 tablet tablet tablet every day every day every day by oral by oral by oral route. route. route. Zoloft 100 Zoloft 100 No 1 Q1D Zoloft 100 [facility] mg tablet mg tablet mg tablet Family Take 1 Take 1 Take 1 Practic tablet tablet tablet e every day every day every day by oral by oral by oral route. route. route. allopurinol allopurinol No 1 Q1D allopurino [facility] 300 mg 300 mg l 300 mg Family tablet Take tablet Take tablet [facility] 1 tablet 1 tablet Take 1 e every day every day tablet by oral by oral every day route. route. by oral route. furosemide furosemide No 1 Q1D furosemide [facility] 20 mg 20 mg 20 mg Family tablet Take tablet Take tablet [facility] 1 tablet 1 tablet Take 1 e every day every day tablet by oral by oral every day route. route. by oral route. gemfibrozil gemfibrozil No 1 BID gemfibrozi [facility] 600 mg 600 mg l 600 mg Family tablet Take tablet Take tablet [facility] 1 tablet 1 tablet Take 1 e twice a day twice a day tablet by oral by oral twice a route. route. day by oral route. Lantus Lantus No 35unit( Q1D Lantus [facility] Sol[facility] Solostar s) Solostar Fam rima U-100 U-100 U-100 [facility] Insulin 100 Insulin 100 Insulin e unit/mL (3 unit/mL (3 100 mL) mL) unit/mL (3 subcutaneou subcutaneou mL) s pen s pen subcutaneo Inject 35 Inject 35 us pen units every units every Inject 35 day by day by units subcutaneou subcutaneou every day s route at s route at by dinner. dinner. subcutaneo us route at dinner. lisinopril lisinopril No 1 Q1D lisinopril [facility] 10 mg 10 mg 10 mg Family tablet Take tablet Take tablet [facility] 1 tablet 1 tablet Take 1 e every day every day tablet by oral by oral every day route. route. by oral route. metformin metformin No 1 BID metformin [facility] 1,000 mg 1,000 mg 1,000 mg Fam rima tablet Take tablet Take tablet [facility] 1 tablet 1 tablet Take 1 e twice a day twice a day tablet by oral by oral twice a route. route. day by oral route. metoprolol metoprolol No metoprolol [facility] succinate succinate succinate Family ER 50 mg ER 50 mg ER 50 mg Pra ctic tablet,exte tablet,exte tablet,ext e nded nded ended release 24 release 24 release 24 hr TAKE 1 hr TAKE 1 hr TAKE 1 TABLET BY TABLET BY TABLET BY MOUTH TWICE MOUTH TWICE MOUTH A DAY A DAY TWICE A DAY oxybutynin oxybutynin No 1 Q1D oxybutynin [facility] chloride ER chloride ER chloride Family 5 mg 5 mg ER 5 mg Pract[facility] tablet,exte tablet,exte tablet,ext e nded nded ended release 24 release 24 release 24 hr Take 1 hr Take 1 hr Take 1 tablet tablet tablet every day every day every day by oral by oral by oral route. route. route. pravastatin pravastatin No 1 Q1D pravastati [facility] 10 mg 10 mg n 10 mg Family tablet Take tablet Take tablet [facility] 1 tablet 1 tablet Take 1 e every day every day tablet by oral by oral every day route at route at by oral bedtime. bedtime. route at bedtime. Prescriptio Prescriptio No Prescripti [facility] n - Prior n - Prior on - Prior Family Authorizati Authorizati Authorizat Practic on Request on Request ion e Request ProAir HFA ProAir HFA No 2puff(s QID ProAir HFA [facility] 90 90 ) 90 Family mcg/actuati mcg/actuati mcg/actuat Practic on aerosol on aerosol ion e inhaler inhaler aerosol Inhale 2 Inhale 2 inhaler puffs 4 puffs 4 Inhale 2 times a day times a day puffs 4 by by times a inhalation inhalation day by route. route. inhalation route. Protonix 40 Protonix 40 No 1 Q1D Protonix [facility] mg mg 40 mg Family tablet,renae tablet,renae tablet,del Practic yed release yed release ayed e Take 1 Take 1 release tablet tablet Take 1 every day every day tablet by oral by oral every day route. route. by oral route. Rybelsus 7 Rybelsus 7 No 1 Q1D Rybelsus 7 [facility] mg tablet mg tablet mg tablet Family Take 1 Take 1 Take 1 Practic tablet tablet tablet e every day every day every day by oral by oral by oral route. route. route. spironolact spironolact No spironolac [facility] one 50 mg one 50 mg tone 50 mg Family tablet TAKE tablet TAKE tablet [facility] 1 TABLET 1 TABLET TAKE 1 e EVERY DAY EVERY DAY TABLET BY ORAL BY ORAL EVERY DAY ROUTE IN ROUTE IN BY ORAL THE THE ROUTE IN MORNING. MORNING. THE MORNING. Vitamin D3 Vitamin D3 No 1capsul Q1D Vitamin D3 [facility] 25 mcg 25 mcg e(s) 25 mcg Family (1,000 (1,000 (1,000 Practic unit) unit) unit) e capsule capsule capsule Take 1 Take 1 Take 1 capsule capsule capsule every day every day every day by oral by oral by oral route. route. route. Wellbutrin Wellbutrin No 1 Q1D Wellbutrin [facility] XL 300 mg XL 300 mg XL 300 mg Family 24 hr 24 hr 24 hr Pract[facility] tablet, tablet, tablet, e extended extended extended release release release Take 1 Take 1 Take 1 tablet tablet tablet every day every day every day by oral by oral by oral route. route. route. Zoloft 100 Zoloft 100 No 1 Q1D Zoloft 100 [facility] mg tablet mg tablet mg tablet Family Take 1 Take 1 Take 1 Practic tablet tablet tablet e every day every day every day by oral by oral by oral route. route. route. allopurinol allopurinol No 1 Q1D allopurino [facility] 300 mg 300 mg l 300 mg Family tablet Take tablet Take tablet [facility] 1 tablet 1 tablet Take 1 e every day every day tablet by oral by oral every day route. route. by oral route. furosemide furosemide No 1 Q1D furosemide [facility] 20 mg 20 mg 20 mg Family tablet Take tablet Take tablet [facility] 1 tablet 1 tablet Take 1 e every day every day tablet by oral by oral every day route. route. by oral route. gemfibrozil gemfibrozil No 1 BID gemfibrozi [facility] 600 mg 600 mg l 600 mg Family tablet Take tablet Take tablet [facility] 1 tablet 1 tablet Take 1 e twice a day twice a day tablet by oral by oral twice a route. route. day by oral route. Lantus Lantus No 35unit( Q1D Lantus [facility] Solost[facility] s) Solostar Fam rima U-100 U-100 U-100 [facility] Insulin 100 Insulin 100 Insulin e unit/mL (3 unit/mL (3 100 mL) mL) unit/mL (3 subcutaneou subcutaneou mL) s pen s pen subcutaneo Inject 35 Inject 35 us pen units every units every Inject 35 day by day by units subcutaneou subcutaneou every day s route at s route at by dinner. dinner. subcutaneo us route at dinner. lisinopril lisinopril No 1 Q1D lisinopril [facility] 10 mg 10 mg 10 mg Family tablet Take tablet Take tablet Pract[facility] 1 tablet 1 tablet Take 1 e every day every day tablet by oral by oral every day route. route. by oral route. metformin metformin No 1 BID metformin [facility] 1,000 mg 1,000 mg 1,000 mg Fam rima tablet Take tablet Take tablet [facility] 1 tablet 1 tablet Take 1 e twice a day twice a day tablet by oral by oral twice a route. route. day by oral route. metoprolol metoprolol No metoprolol [facility] succinate succinate succinate [facility] ER 50 mg ER 50 mg ER 50 mg Pra ctic tablet,exte tablet,exte tablet,ext e nded nded ended release 24 release 24 release 24 hr TAKE 1 hr TAKE 1 hr TAKE 1 TABLET BY TABLET BY TABLET BY MOUTH TWICE MOUTH TWICE MOUTH A DAY A DAY TWICE A DAY oxybutynin oxybutynin No 1 Q1D oxybutynin [facility] chloride ER chloride ER chloride Family 5 mg 5 mg ER 5 mg Pract[facility] tablet,exte tablet,exte tablet,ext e nded nded ended release 24 release 24 release 24 hr Take 1 hr Take 1 hr Take 1 tablet tablet tablet every day every day every day by oral by oral by oral route. route. route. pravastatin pravastatin No 1 Q1D pravastati [facility] 10 mg 10 mg n 10 mg Family tablet Take tablet Take tablet [facility] 1 tablet 1 tablet Take 1 e every day every day tablet by oral by oral every day route at route at by oral bedtime. bedtime. route at bedtime. [facility]criptio [facility] - [facility] on - Prior Family Authorizati Authorizati Authorizat Practic on Request on Request ion e Request ProAir HFA ProAir HFA No 2puff(s QID ProAir HFA [facility] 90 ) 90 Family mcg/actuati mcg/actuati mcg/actuat Practic on aerosol on aerosol ion e inhaler inhaler aerosol Inhale 2 Inhale 2 inhaler puffs 4 puffs 4 Inhale 2 times a day times a day puffs 4 by by times a inhalation inhalation day by route. route. inhalation route. Protonix 40 Protonix 40 No 1 Q1D Protonix [facility] mg mg 40 mg Family tablet,renae tablet,renae tablet,del Pract[facility] yed release yed release ayed e Take 1 Take 1 release tablet tablet Take 1 every day every day tablet by oral by oral every day route. route. by oral route. Rybelsus 7 Rybelsus 7 No 1 Q1D Rybelsus 7 [facility] mg tablet mg tablet mg tablet Family Take 1 Take 1 Take 1 Practic tablet tablet tablet e every day every day every day by oral by oral by oral route. route. route. spironolact spironolact No spironolac [facility] one 50 mg one 50 mg tone 50 mg Family tablet TAKE tablet TAKE tablet [facility] 1 TABLET 1 TABLET TAKE 1 e EVERY DAY EVERY DAY TABLET BY ORAL BY ORAL EVERY DAY ROUTE IN ROUTE IN BY ORAL THE THE ROUTE IN MORNING. MORNING. THE MORNING. Vitamin D3 Vitamin D3 No 1capsul Q1D Vitamin D3 [facility] 25 mcg 25 mcg e(s) 25 mcg Family (1,000 (1,000 (1,000 Practic unit) unit) unit) e capsule capsule capsule Take 1 Take 1 Take 1 capsule capsule capsule every day every day every day by oral by oral by oral route. route. route. Wellbutrin Wellbutrin No 1 Q1D Wellbutrin [facility] XL 300 mg XL 300 mg XL 300 mg Family 24 hr 24 hr 24 hr Practic tablet, tablet, tablet, e extended extended extended release release release Take 1 Take 1 Take 1 tablet tablet tablet every day every day every day by oral by oral by oral route. route. route. Zoloft 100 Zoloft 100 No 1 Q1D Zoloft 100 [facility] mg tablet mg tablet mg tablet Family Take 1 Take 1 Take 1 Practic tablet tablet tablet e every day every day every day by oral by oral by oral route. route. route. allopurinol allopurinol No 1 Q1D allopurino [facility] 300 mg 300 mg l 300 mg Family tablet Take tablet Take tablet [facility] 1 tablet 1 tablet Take 1 e every day every day tablet by oral by oral every day route. route. by oral route. furosemide furosemide No 1 Q1D furosemide [facility] 20 mg 20 mg 20 mg Family tablet Take tablet Take tablet Pract[facility] 1 tablet 1 tablet Take 1 e every day every day tablet by oral by oral every day route. route. by oral route. gemfibrozil gemfibrozil No 1 BID gemfibrozi [facility] 600 mg 600 mg l 600 mg Family tablet Take tablet Take tablet [facility] 1 tablet 1 tablet Take 1 e twice a day twice a day tablet by oral by oral twice a route. route. day by oral route. Lantus Lantus No 20unit( Q1D Lantus [facility] Solostar s) Solostar Fam rima U-100 U-100 U-100 Pract[facility] Insulin 100 Insulin 100 Insulin e unit/mL (3 unit/mL (3 100 mL) mL) unit/mL (3 subcutaneou subcutaneou mL) s pen s pen subcutaneo Inject 20 Inject 20 us pen units every units every Inject 20 day by day by units subcutaneou subcutaneou every day s route at s route at by dinner. dinner. subcutaneo us route at dinner. lisinopril lisinopril No 1 Q1D lisinopril [facility] 10 mg 10 mg 10 mg Family tablet Take tablet Take tablet Pract[facility] 1 tablet 1 tablet Take 1 e every day every day tablet by oral by oral every day route. route. by oral route. metformin metformin No 1 BID metformin [facility] 1,000 mg 1,000 mg 1,000 mg Fam rima tablet Take tablet Take tablet [facility] 1 tablet 1 tablet Take 1 e twice a day twice a day tablet by oral by oral twice a route. route. day by oral route. oxybutynin oxybutynin No 1 Q1D oxybutynin [facility] chloride ER chloride ER chloride [facility] 5 mg 5 mg ER 5 mg Pract[facility] tablet,exte tablet,exte tablet,ext e nded nded ended release 24 release 24 release 24 hr Take 1 hr Take 1 hr Take 1 tablet tablet tablet every day every day every day by oral by oral by oral route. route. route. pravastatin pravastatin No 1 Q1D pravastati [facility] 10 mg 10 mg n 10 mg Family tablet Take tablet Take tablet [facility] 1 tablet 1 tablet Take 1 e every day every day tablet by oral by oral every day route at route at by oral bedtime. bedtime. route at bedtime. Prescriptio Prescriptio No Prescripti [facility] n - Prior n - Prior on - Prior Family Authorizati Authorizati Authorizat Practic on Request on Request ion e Request ProAir HFA ProAir HFA No 2puff(s QID ProAir HFA [facility] 90 90 ) 90 Family mcg/actuati mcg/actuati mcg/actuat Pract[facility] on aerosol on aerosol ion e inhaler inhaler aerosol Inhale 2 Inhale 2 inhaler puffs 4 puffs 4 Inhale 2 times a day times a day puffs 4 by by times a inhalation inhalation day by route. route. inhalation route. Protonix 40 Protonix 40 No 1 Q1D Protonix [facility] mg mg 40 mg Family tablet,renae tablet,renae tablet,del Practic yed release yed release ayed e Take 1 Take 1 release tablet tablet Take 1 every day every day tablet by oral by oral every day route. route. by oral route. Rybelsus 7 Rybelsus 7 No 1 Q1D Rybelsus 7 [facility] mg tablet mg tablet mg tablet Family Take 1 Take 1 Take 1 Practic tablet tablet tablet e every day every day every day by oral by oral by oral route. route. route. spironolact spironolact No 1 Q1D spironolac [facility] one 50 mg one 50 mg tone 50 mg Family tablet Take tablet Take tablet [facility] 1 tablet 1 tablet Take 1 e every day every day tablet by oral by oral every day route in route in by oral the the route in morning. morning. the morning. Toprol XL Toprol XL No 1 BID Toprol XL [facility] 50 mg 50 mg 50 mg Family tablet,exte tablet,exte tablet,ext Practic nded nded ended e release release release Take 1 Take 1 Take 1 tablet tablet tablet twice a day twice a day twice a by oral by oral day by route. route. oral route. Vitamin D3 Vitamin D3 No 1capsul Q1D Vitamin D3 [facility] 25 mcg 25 mcg e(s) 25 mcg Family (1,000 (1,000 (1,000 Pract[facility] unit) unit) unit) e capsule capsule capsule Take 1 Take 1 Take 1 capsule capsule capsule every day every day every day by oral by oral by oral route. route. route. Wellbutrin Wellbutrin No 1 Q1D Wellbutrin [facility] XL 300 mg XL 300 mg XL 300 mg Family 24 hr 24 hr 24 hr Practic tablet, tablet, tablet, e extended extended extended release release release Take 1 Take 1 Take 1 tablet tablet tablet every day every day every day by oral by oral by oral route. route. route. Zoloft 100 Zoloft 100 No 1 Q1D Zoloft 100 [facility] mg tablet mg tablet mg tablet Family Take 1 Take 1 Take 1 Practic tablet tablet tablet e every day every day every day by oral by oral by oral route. route. route. allopurinol allopurinol No 1 Q1D allopurino [facility] 300 mg 300 mg l 300 mg Family tablet Take tablet Take tablet [facility] 1 tablet 1 tablet Take 1 e every day every day tablet by oral by oral every day route. route. by oral route. gemfibrozil gemfibrozil No 1 BID gemfibrozi [facility] 600 mg 600 mg l 600 mg Family tablet Take tablet Take tablet [facility] 1 tablet 1 tablet Take 1 e twice a day twice a day tablet by oral by oral twice a route. route. day by oral route. Lantus Lantus No 20unit( Q1D Lantus [facility]ar [facility]) Solostar Fam rima U-100 U-100 U-100 [facility] Insulin 100 Insulin 100 Insulin e unit/mL (3 unit/mL (3 100 mL) mL) unit/mL (3 subcutaneou subcutaneou mL) s pen s pen subcutaneo Inject 20 Inject 20 us pen units every units every Inject 20 day by day by units subcutaneou subcutaneou every day s route at s route at by dinner. dinner. subcutaneo us route at dinner. Lasix 40 mg Lasix 40 mg No 1 Q1D Lasix 40 [facility] tablet Take tablet Take mg tablet Family 1 tablet 1 tablet Take 1 Pract ic every day every day tablet e by oral by oral every day route. route. by oral route. lisinopril lisinopril No 1 Q1D lisinopril [facility] 10 mg 10 mg 10 mg Family tablet Take tablet Take tablet [facility] 1 tablet 1 tablet Take 1 e every day every day tablet by oral by oral every day route. route. by oral route. metformin metformin No 1 BID metformin [facility] 1,000 mg 1,000 mg 1,000 mg Fam rima tablet Take tablet Take tablet [facility] 1 tablet 1 tablet Take 1 e twice a day twice a day tablet by oral by oral twice a route. route. day by oral route. oxybutynin oxybutynin No 1 Q1D oxybutynin [facility] chloride ER chloride ER chloride Family 5 mg 5 mg ER 5 mg Pract[facility] tablet,exte tablet,exte tablet,ext e nded nded ended release 24 release 24 release 24 hr Take 1 hr Take 1 hr Take 1 tablet tablet tablet every day every day every day by oral by oral by oral route. route. route. pravastatin pravastatin No 1 Q1D pravastati [facility] 10 mg 10 mg n 10 mg Family tablet Take tablet Take tablet [facility] 1 tablet 1 tablet Take 1 e every day every day tablet by oral by oral every day route at route at by oral bedtime. bedtime. route at bedtime. ProAir HFA ProAir HFA No 2puff(s QID ProAir HFA [facility] 90 90 ) 90 Family mcg/actuati mcg/actuati mcg/actuat Practic on aerosol on aerosol ion e inhaler inhaler aerosol Inhale 2 Inhale 2 inhaler puffs 4 puffs 4 Inhale 2 times a day times a day puffs 4 by by times a inhalation inhalation day by route. route. inhalation route. Protonix 40 Protonix 40 No 1 Q1D Protonix [facility] mg mg 40 mg Family tablet,renae tablet,renae tablet,del Practic yed release yed release ayed e Take 1 Take 1 release tablet tablet Take 1 every day every day tablet by oral by oral every day route. route. by oral route. Rybelsus 7 Rybelsus 7 No 1 Q1D Rybelsus 7 [facility] mg tablet mg tablet mg tablet Family Take 1 Take 1 Take 1 Practic tablet tablet tablet e every day every day every day by oral by oral by oral route. route. route. spironolact spironolact No 1 Q1D spironolac [facility] one 50 mg one 50 mg tone 50 mg Family tablet Take tablet Take tablet [facility] 1 tablet 1 tablet Take 1 e every day every day tablet by oral by oral every day route in route in by oral the the route in morning. morning. the morning. Toprol XL Toprol XL No 1 BID Toprol XL [facility] 50 mg 50 mg 50 mg Family tablet,exte tablet,exte tablet,ext Practic nded nded ended e release release release Take 1 Take 1 Take 1 tablet tablet tablet twice a day twice a day twice a by oral by oral day by route. route. oral route. Vitamin D3 Vitamin D3 No 1capsul Q1D Vitamin D3 [facility] 25 mcg 25 mcg e(s) 25 mcg [facility] (1,000 (1,000 (1,000 Practic unit) unit) unit) e capsule capsule capsule Take 1 Take 1 Take 1 capsule capsule capsule every day every day every day by oral by oral by oral route. route. route. Wellbutrin Wellbutrin No 1 Q1D Wellbutrin [facility] XL 300 mg XL 300 mg XL 300 mg Family 24 hr 24 hr 24 hr Practic tablet, tablet, tablet, e extended extended extended release release release Take 1 Take 1 Take 1 tablet tablet tablet every day every day every day by oral by oral by oral route. route. route. Zoloft 100 Zoloft 100 No 1 Q1D Zoloft 100 [facility] mg tablet mg tablet mg tablet Family Take 1 Take 1 Take 1 Practic tablet tablet tablet e every day every day every day by oral by oral by oral route. route. route. Vital Signs Vital Name Observation Time Observation Value Comments Source BMI (Body Mass 2023-02-08 00:00:00 30.2 kg/m2 [facility] Body Weight 2023-02-08 00:00:00 216.6 [lb_av] [facility] BP Diastolic 2023-02-08 00:00:00 86 mm[Hg] [facility] Height 2023-02-08 00:00:00 71 [in_i] [facility] BP Systolic 2023-02-08 00:00:00 138 mm[Hg] [facility] BMI (Body [facility] 2023-01[facility]19 [facility]00[facility] Body Weight 2023-01-19 00:00:00 208 [lb_av] [facility] BP Systolic 2023-01-19 00:00:00 127 mm[Hg] [facility] Height 2023-01-19 00:00:00 71 [in_i] [facility] BP Diastolic 2023-01-19 00:00:00 68 mm[Hg] [facility] BP Systolic 2023-01-18 00:00:00 128 mm[Hg] [facility] Height 2023-01-18 00:00:00 71 [in_i] [facility] BP Diastolic 2023-01-18 00:00:00 68 mm[Hg] [facility] BP Diastolic 2022-09-21 00:00:00 69 mm[Hg] [facility] Height 2022-09-21 00:00:00 71 [in_i] [facility] BMI (Body Mass 2022-09-21 00:00:00 28[facility]5 [facility] BP Systolic 2022-09-21 00:00:00 177 mm[Hg] [facility] Body Weight 2022-09-21 00:00:00 204.2 [lb_av] [facility] BP Diastolic 2022-06-14 00:00:00 82 mm[Hg] [facility] Height 2022-06-14 00:00:00 71 [in_i] [facility] BMI (Body Mass 2022-06-14 00:00:00 29.6 kg/m2 [facility] BP Systolic 2022-06-14 00:00:00 170 mm[Hg] [facility] Body Weight 2022-06-14 00:00:00 212 [lb_av] [facility] BP Diastolic 2022-04-17 00:00:00 65 mm[Hg] [facility] Height 2022-04-17 00:00:00 71 [in_i] [facility] BMI (Body Mass 2022-04-17 00:00:00 29.1 kg/m2 [facility] BP Systolic 2022-04-17 00:00:00 133 mm[Hg] [facility] Body Weight 2022-04-17 00:00:00 209 [lb_av] [facility] BP Diastolic 2022-03-15 00:00:00 76 mm[Hg] [facility] Height 2022-03-15 00:00:00 71 [in_i] [facility] BMI (Body Mass 2022-03-15 00:00:00 27.6 kg/m2 [facility] BP Systolic 2022-03-15 00:00:00 149 mm[Hg] [facility] Body Weight 2022-03-15 00:00:00 198 [lb_av] [facility] BP Diastolic 2022-02-15 00:00:00 46 mm[Hg] [facility] Height 2022-02-15 00:00:00 71 [in_i] [facility] BMI (Body Mass 2022-02-15 00:00:00 30.8 kg/m2 [facility] BP Systolic 2022-02-15 00:00:00 103 mm[Hg] [facility] Body Weight 2022-02-15 00:00:00 221 [lb_av] [facility] BP Diastolic 2021-12-05 00:00:00 69 mm[Hg] [facility] Height 2021-12-05 00:00:00 71 [in_i] [facility] BMI (Body Mass 2021-12-05 00:00:00 29 kg/m2 [facility] Index) Practice BP Systolic 2021-12-05 00:00:00 168 mm[Hg] [facility] Body Weight 2021-12-05 00:00:00 208 [lb_av] [facility] BP Diastolic 2021-10-18 00:00:00 80 mm[Hg] [facility] Height 2021-10-18 00:00:00 71 [in_i] [facility] BMI (Body Mass 2021-10-18 00:00:00 28.7 kg/m2 [facility] Index) Practice BP Systolic 2021-10-18 00:00:00 166 mm[Hg] [facility] Body Weight 2021-10-18 00:00:00 206 [lb_av] [facility] Procedures Procedure Date / Time Performing Clinician Source Performed TTE COMPLETE, WO 2023-01-30 15:21:00 [facility] CONTRAST, W DOPPLER ([id number]) US ABDOMEN COMPLETE 2023-01-30 14:14:27 [facility], 2023-01-19 00:00:00 [facility] transthoracic, complete, Practic e w/ color flow US, abdomen, complete 2023-01-19 00:00:00 [facility] X-RAY OF CHEST 2 VIEW 2023-01-19 00:00:00 [facility] X-RAY OF CHEST 2 VIEW 2022-06-14 00:00:00 [facility] US, abdomen, complete 2022-02-15 00:00:00 [facility] Appendectomy [facility] Plan of Care Planned Activity Planned Date Details Comments Source Future Scheduled Test 2023-05-10 BMP, serum or [facility] 00:00:00 plasma [code = BMP, Practice serum or plasma] Future Scheduled Test 2023-05-10 HbA1c (hemoglobin [facility] 00:00:00 A1c), blood [code = Practice HbA1c (hemoglobin A1c), blood] Future Scheduled Test 2023-02-12 Hepatitis C Method [facility] 11:20:07 screening (procedure) [code = 903174125] Future Scheduled Test 2023-02-12 HEPATITIS B Method [facility] 11:20:07 VACCINES (1 of 3 - Risk 3-dose series) [code = HEPATITIS B VACCINES (1 of 3 - Risk 3-dose series)] Future Scheduled Test 2023-02-12 SHINGLES VACCINES [facility] 11:20:07 (2 of 3) [code = SHINGLES VACCINES (2 of 3)] Future Scheduled Test 2023-02-12 COVID-19 VACCINE (2 [facility] 11:20:07 - Moderna series) [code = COVID-19 VACCINE (2 - Moderna series)] Future Scheduled Test 2023-02-12 INFLUENZA VACCINE [facility] 11:20:07 (#1) [code = INFLUENZA VACCINE (#1)] Future Appointment 2023-05-11 Clint Flaherty [facility] 00:00:[address] [place] [address] Zainab Alvarez; [address], [place] [address] [facility] Encounters Start End Encounter Admission Attending Care Care Encounter Source Date/Time Date/Time Type Type Clinicians Facility Department ID 2023-02-08 2023-02-08 Celia [facility] [place] - [id number] [facility] 00:00:00 00:00:00 MD Amina: [facility] ly 71 Medical - Practi [facility] ROBERTO_Calli Alvarez, [address], [place] [phone] , Ph. 2023-02-07 2023-02-07 Outpatient Amina_LORNA_ CASSANDRA [facility] 206 [id number] [facility] 00:00:00 00:00:00 [id number] [facility] 2023-01-30 2023-01-30 [facility], 1.2.840.1 [id number] Methodi 08:44:04 23:59:00 Encounter Celia [address]202.1.[address] 3.430.2.7 Hospit a .3.153939 l .8 2023-01-30 2023-01-30 [facility] 1.2.840.1 [id number] Methodi 08:41:29 08:43:00 Encounter Celia [address]90.1.[address] 3.430.2.7 Hospit a .3.047865 l .8 2023-01-30 2023-01-30 Outpatient AMINA [facility] [id number] [address] [place] 00:00:00 00:00:00 CELIA [address] 2023-01-30 2023-01-30 Outpatient AMINA [facility] [id number] [address] [place] 00:00:00 00:00:00 CELIA [address] 2023-01-22 2023-01-22 Transcribe Amina, 1.2.840.1 [id number] Method 00:00:00 00:00:00 Orders Celia [address]54.1.[address] 3.430.2.7 Hospit a .3.728800 l .8 2023-01-19 2023-01-19 Outpatient Iyer_H_HOU_ VFP VFP [address] 00:00:00 00:00:00 [id number] Family Practic e 2023-01-19 2023-01-19 Outpatient Iyer_H_HOU_ VFP VFP [address] 00:00:00 00:00:00 [id number] Family Practic e 2023-01-19 2023-01-19 Celia VFP [place] - [id number] [facility] 00:00:00 00:00:00 MD Amina: Abbie wright [facility] [place] Silvino Alvarez, [place] [phone] , Ph. 2023-01-18 2023-01-18 Celia VFP [place] - [id number] [facility] 00:00:00 00:00:00 MD Amina: Abbie wright 71[facility] [place] Silvino Alvarez, [place] [phone] , Ph. 2023-01-12 2023-01-12 Outpatient Iyer_H_HOU_ VFP VFP [id number] [facility] 00:00:00 00:00:00 [id number] Family Practic e 2022-11-13 2022-11-13 Outpatient Iyer_H_HOU_ VFP VFP [facility] 00:00:00 00:00:00 [id number] Family Practic e 2022-11-03 2022-11-03 Outpatient Iyer_H VFP VFP [id number] [facility] 00:00:00 00:00:00 [id number] Family Practic e 2022-10-26 2022-10-26 Outpatient Iyer_H VFP VFP [id number] [facility] 00:00:00 00:00:00 [id number] Family Practic e 2022-09-21 2022-09-21 Outpatient Iyer_H VFP VFP [id number] [facility] 00:00:00 00:00:00 [id number] Family Practic e 2022-09-21 2022-09-21 Outpatient Iyer_H VFP VFP [id number] [facility] 00:00:00 00:00:00 [id number] Family Practic e 2022-09-21 2022-09-21 Outpatient Iyer_H VFP VFP [id number] [facility] 00:00:00 00:00:00 [id number] Family Practic e 2022-09-21 2022-09-21 Celia VFP [place] - [id number] [facility] 00:00:00 00:00:00 MD Amina: [facility] ly [address] [place] [address] Medical [place] - e Center Silvino Alvarez, [place] [phone] , Ph. 2022-06-14 2022-06-14 Celia VFP [place] - [id number] [facility] 00:00:00 00:00:00 MD Amina: [facility] ly [address] [place] [address] Medical [place] - [place] Center Silvino Alvarez, [address] [address] , Ph. 2022-05-30 2022-05-30 Outpatient Iyer_H VFP VFP [id number] [facility] 00:00:00 00:00:00 [id number] Family Practic e 2022-04-17 2022-04-17 Celia VFP - [id number] [facility] 00:00:00 00:00:00 MD Amina: [facility] Katerine ly [address] [facility] [place] - [place] Slivino Alvarez, Suite [facility] [address], [place] [address] , Ph. 2022-03-28 2022-03-28 Outpatient Iyer_H VFP VFP [id number] [facility] 00:00:00 00:00:00 [id number] Family Practic e 2022-03-28 2022-03-28 Outpatient Iyer_H VFP VFP [id number] - [facility] 00:00:00 00:00:00 [id number] Family Practic e 2022-03-26 2022-03-26 Outpatient Iyer_H VFP VFP [id number] [facility] 00:00:00 00:00:00 [id number] Family Practic e 2022-03-24 2022-03-24 Outpatient Iyer_H VFP VFP [id number] -[id number] [facility] 00:00:00 00:00:00 [id number] Family Practic e 2022-03-22 2022-03-22 Outpatient Iyer_H VFP VFP [id number] [facility] 00:00:00 00:00:00 [id number] Family Practic e 2022-03-17 2022-03-17 Outpatient Iyer_H VFP VFP [id number] [facility] 00:00:00 00:00:00 [id number] Family Practic e 2022-03-15 2022-03-15 Outpatient Iyer_H VFP VFP [id number] -[id number] [facility] 00:00:00 00:00:00 [id number] Family Practic e 2022-03-15 2022-03-15 Celia VFP - [id number] [facility] 00:00:00 00:00:00 MD Amina: [facility] ly [address] [facility] [place] [facility] Suite [facility] [address], [place] [address] , Ph. 2022-03-01 2022-03-01 Outpatient AMINA [facility] [id number] [address] [place] 00:00:00 00:00:00 CELIA [address] 2022-02-16 2022-02-16 Outpatient Iyer_H VFP VFP [id number] [facility] 00:00:00 00:00:00 [id number] Family Practic e 2022-02-15 2022-02-15 Outpatient Iyer_H VFP VFP [id number] - [facility] 00:00:00 00:00:00 [id number] Family Practic e 2022-02-15 2022-02-15 Celia VFP [place] - [id number] [facility] 00:00:00 00:00:00 MD Amina: Abbie Garcias ly 7111 Medical - Practi c Medical [place] [facility], Suite [facility] [address], [place] [address] , Ph. 2022-01-17 2022-01-17 Outpatient [facility] [id number] [place] 00:00:00 00:00:00 JANINE [address] 2022-01-12 2022-01-12 [facility] [id number] [place] 00:00:00 00:00:00 JANINE [address] 2021-12-05 2021-12-05 Outpatient Iyer_H VFP VFP [id number] [facility] 05:02:00 05:02:00 [id number] Family Practic e 2021-12-05 2021-12-05 Celia VFP [place] - [id number] [facility] 00:00:00 00:00:00 MD Amina: Abbie Garcias ly 7111 Medical - Practi c Medical _Calli [facility] [address], [place] [address] , Ph. 2021-10-18 2021-10-18 Outpatient Iyer_H VFP VFP [id number] [facility] 06:15:00 06:15:00 [id number] Family Practic e 2021-10-18 2021-10-18 Celia VFP [place] - [id number] [facility] 00:00:00 00:00:00 MD Amina: Abbie Garcias ly 7111 Medical - Practi c [facility] [address], [place] [address] , Ph. 2020-06-02 2020-06-02 Outpatient AminaOMARIMN MCTS [id number] [facility] 11:00:00 11:00:00 Celia [address] [facility] 2019-12-18 2019-12-18 Outpatient AMINA, [facility] [id number] [place] [address] 00:00:00 00:00:00 CELIA [address] 2019-12-18 2019-12-18 Outpatient [facility] [id number] [place] [address] 00:00:00 00:00:00 CELIA [address] Results Test Description Test Time Test Comments Results Result Comments Source Transthoracic Echocardiogram Complete, (w Contrast, St rain and 2023-02-06 11:56:16 3D if needed) Test Item Value Reference Range Interpretation Comme nts LV EF,BP (test code = 68.66 % 2609100483) IVS,d (test code = 1.29 cm 0.6-1.19 5730659590) IVS s 2D (test code = 1.84 cm 4385126668) LVPWD,d (test code = 1.30 cm 0.60-1.19 0564302737) LVPW s PLAX (test code = 1.61 cm 9916918180) LV,d (test code = 3.95 cm 4.2-5.8 8352700617) LV,s (test code = 2.57 cm 3787066748) LV mass (test code = 182.57 g 1981756401) LVOT Diam,S (test code = 1.93 cm 1114825665) LV MATAMOROS VOL (test code = 67.86 ml 62-150 4985667701) LV SYS VOL (test code = 23.80 ml 21-61 5404501051) LV Vol,d A2C (test code = 60.80 mL 6217665707) LV Vol,s A2C (test code = 21.54 mL 8448077664) LV Vol,d A4C (test code = 107.82 ml 7896730837) LV Vol,s A4C (test code = 31.09 ml 5784266856) Relative wall thickness 0.66 cm (test code = 1367454853) E/A ratio (test code = 0.79 <=0.8 4854872387) MV Peak A Mathew (test code 1.18 m/s = 2253402469) MV Peak E Mathew (test code 0.93 m/s = 1776642933) E wave decelartion time 249.41 See_Comment [Au tomated message] (test code = 4556989593) The system which generated this result transmitted ref erence range: 200 msec . The reference range was not used to int erpret this result as normal/abnormal . LV Mass Index (test code 88.63 g/m2 = 4927548738) LV Systolic Volume Index 10.46 mL/m2 11-31 (test code = 9428017643) LV Diastolic Volume Index 29.51 mL/m2 34-74 (test code = 2290708021) LV % FS,2D (test code = 34.94 % 8105801246) IVS/LVPW,2D (test code = 1.00 7942481466) LV EF,2D (test code = 72.56 % 0443329593) LV FS Cube 2D (test code 35.02 = 2696690151) LV FS Teich 2D (test code 35.02 = 2050383641) LV SI Teich 2D (test code 21.34 ml/m2 = 1970655603) LV SV Teich 2D (test code 44.05 ml = 9664350707) LV Vol s Teich PSAX (test 23.80 ml code = 0946221015) LVOT stroke volume (test 0.79 cm3 code = 7043388402) LVOT VTI (test code = 0.27 m 6622111118) LA Vol MOD A4C (test code 63.49 ml = 9003926647) LA Ao Ratio Mmode (test 1.14 code = 1241747141) LVOT area (test code = 2.92 cm2 1981810062) LVOT Vmax (test code = 1.19 m/s 6312590812) AoV Mean PG (test code = 15.52 See_Comment [A utomated message] 5174402290) The system [employer] generated this result transmitted ref erence range: 20 mmHg. The reference range was not used to int erpret this result as normal/abnormal . AoV Peak PG (test code = 26.09 mmHg 9621874570) AV LVOT peak gradient 5.62 mmHg (test code = 2054918209) AoV area i VTI BSA [place] 0.69 cm2/m2 >=0.85 A (test code = 8530840954) AoV Area, Vmax (test code 1.36 cm2 >=1.5 = 1011565635) LVOT VTI (CM) (test code 27.00 cm = 8124974126) AoV Vmax (test code = 2.66 m/s 3169099226) AoV Vmn (test code = 1.88 m/s 3230040924) AoV Area, VTI (test code 1.43 cm2 = 5228876855) LVOT SI (test code = 38.38 ml/m2 4862641194) AoV Cusp sep (test code = 0.59 9091280778) Velocity Ratio (V1/V2) 0.45 m/s (test code = 4689) MR peak grad (test code = 84.17 mmHg 0664909562) MV stenosis pressure 1/2 72.33 ms <=150 time (test code = 1960216458) MV E A ratio (test code = 0.79 9496949374) MV valve area p 1/2 3.04 cm2 method (test code = 3604784300) RVSP (test code = 36.37 See_Comment [Automate d message] 1741340358) The system [employer] generated this result transmitted ref erence range: 40.00 mm Hg. The reference r andrew was not used to interpret this result as normal/abnor mal. RA pressure (test code = 3.0 mmHg 2371798067) TR pk grad (test code = 33.4 mmHg 1569178726) TR Vpeak (test code = 2.89 m/s 0752821748) PV AT (test code = 103.81 msec 7469013938) Ao root annulus (test 3.05 cm code = 2491721218) BSA (test code = 2.06 m2 1264884163) BSA Sousa (test code = 2.17 m2 9722949979) BSA Haycock (test code = 2.16 m2 4863592874) MV Decel slope (test code 3.74 m/s2 = 7535233989) LVPW pct thck PLAX (test 24.02 % code = 3671571776) LV vol s cube 2D (test 16.89 ml code = 2152125662) LV vol d cube 2D (test 61.54 ml code = 4502303126) LV SV Cube 2D (test code 44.65 ml = 5331771950) LV SI Cube 2D (test code 21.63 ml/m2 = 8421279111) IVS pct thck PLAX (test 42.06 % code = 5777467325) AoV area I VMN bsa (test 0.65 cm2/m2 code = 4591557210) LVOT mean grad (test code 3.39 mmHg = 6092724708) Aov area Vmn (test code = 1.35 cm2 9572651532) Pt Wt (test code = 95.25 5398823337) Pt Size (test code = 170.18 2053352367) MV AE ratio (test code = 1.27 1655107355) LVOT Vmn (test code = 0.87 4332243813) MR Vmax (test code = 4.59 m/s 4015565908) PV Vmn (test code = 12.92 m/s 7889735536) LV Vol Index s bpmod BSA 41.23 ml/m2 [place] (test code = 8068585427) LV SI MOD BP BSA [place] 28.31 ml/m2 (test code = 7737865413) BMI (test code = 32.89 kg/m2 2791786316) LV Vol,s BP (test code = 26.67 nl 6882066646) LV Vol,d BP (test code = 85.12 ml 3905883463) LV SV,BP (test code = 58.44 % 0340854283) LV SV,A4C (test code = 76.73 % 7703494348) LV SV,A2C (test code = 39.27 % 6361749426) [place],s A4C (test code 6.60 cm = 4047386493) [place],s A2C (test code 6.02 cm = 1960280454) [place],d A4C (test code 8.54 cm = 3751676268) [place],d A2C (test code 7.70 cm = 7120503042) LV EF,A4C (test code = 71.16 % 5889711057) LV EF,A2C (test code = 64.58 % 8690927096) AoV VTI (test code = 0.51 m 4667355654) E prime sept (test code = 0.06 >=7.00 6247699683) E prime lat (test code = 0.13 >=10.00 9456864274) TAPSE (test code = 2.6 cm 0635294551) LA diam s (test code = 3.5 cm 5485058319) LA Volume Index (test 34.3 mL/m2 <=34 code = 1265760389) LA VOL 2C (test code = 63.0 ml 5438458145) LA Vol 4C (test code = 70.0 ml 9138122892) D E excurs (test code = 1.7 6670396299) E f slope (test code = 0.05 7402924299) PV acc T slope (test code 6.8 = 3276518489) LV MASS INDEX (test code 87.2 g/m2 49-115 = 7993003806) MAYCOL (test code = MAYCOL) Left Ventricle: Left ventricle size is normal. Mildly increased wall thickness. Ventricular mass is normal. LV Mass Index is 87.2 g/m2. Normal wall motion. Normal systolic function with a visually estimated EF of 65 - 70%. Grade I (impaired relaxation) diastolic dysfunction. Left Atrium: Left atrium is mildly dilated. LA vol index is 34.3 mL/m2. Mitral Valve: Mildly calcified leaflets. Mildly calcified subvalvular apparatus. Tricuspid Valve: Mild valvular regurgitation. No pulmonary hypertension is present. RVSP is approximately 36.37 mmHg. RAP is 3.0 mmHg. Left VentricleLeft ventricle size is normal. Mildly increased wall thickness. Ventricular mass is normal. LV Mass Index is 87.2 g/m2. Normal wall motion. Normal systolic function with a visually estimated EF of 65 - 70%. Grade I (impaired relaxation) diastolic dysfunction.Right VentricleRight ventricle size is normal. Normal systolic function. TAPSE is 2.6 cm.Left AtriumLeft atrium is mildly dilated. LA vol index is 34.3 mL/m2.Right AtriumRight atrium size is normal.IVC/SVCIVC was not well visualized.Mitral ValveMildly calcified leaflets. Mildly calcified subvalvular apparatus. Trace valvular regurgitation.Tricuspid ValveValve structure is normal. Mild valvular regurgitation. No pulmonary hypertension is present. RVSP is approximately 36.37 mmHg. RAP is 3.0 mmHg.Aortic ValveValve structure is grossly normal. No stenosis.Pulmonic ValveNot well visualized.PericardiumThe pericardium is normal. There is no pericardial effusion present.AortaNormal sized annulus. Annulus size is 3.05 cm.Study DetailsStudy quality was fair. A complete 2D, color flow Doppler and spectral Doppler echocardiogram was performed.The apical, parasternal and subcostal views were obtained. Patient exhibited sinus rhythm.Wall Scoring BaselineScore Index: 1.00The left ventricular wall motion is normal. Lab Interpretation (test Abnormal code = 00283-5) [facility] metabolic 2000 panel - Serum or [id number] 00:00:00 Test Item Value Reference Range Interpretation Comments Glucose [Mass/volume] in Serum 229 mg/dL 70-99 H or Plasma (test code = 2345-7) Urea nitrogen [Mass/volume] in 30 mg/dL 8-27 H Serum or Plasma (test code = 3094-0) Creatinine [Mass/volume] in 1.03 mg/dL 0.76-1.27 Serum or Plasma (test code = 2160-0) Glomerular filtration 74 mL/min/1.73 >59 rate/1.73 sq M.predicted [Volume Rate/Area] in Serum, Plasma or Blood by Creatinine-based formula (CKD-EPI 2020) (test code = 41558-7) Urea nitrogen/Creatinine [Mass 29 10-24 H Ratio] in Serum or Plasma (test code = 3097-3) Sodium [Moles/volume] in Serum 141 mmol/L 134-144 or Plasma (test code = 2951-2) Potassium [Moles/volume] in 4.7 mmol/L 3.5-5.2 Serum or Plasma (test code = 2823-3) Chloride [Moles/volume] in 104 mmol/L 96-106 Serum or Plasma (test code = 2075-0) Carbon dioxide, total 24 mmol/L 20-29 [Moles/volume] in Serum or Plasma (test code = 2027-9) Calcium [Mass/volume] in Serum 9.0 mg/dL 8.6-10.2 or Plasma (test code = 51521-7) [facility] W Auto Differential panel - [id number] 00:00:00 Test Item Value Reference Range Interpretation Comments Leukocytes [#/volume] in Blood 3.0 x10e3/uL 3.4-10.8 L by Automated count (test code = 6690-2) Erythrocytes [#/volume] in 3.25 x10e6/uL 4.14-5.80 L Blood by Automated count (test code = 789-8) Hemoglobin [Mass/volume] in 11.0 g/dL 13.0-17.7 L Blood (test code = 718-7) Hematocrit [Volume Fraction] of 33.1 % 37.5-51.0 L Blood by Automated count (test code = 4544-3) Erythrocyte mean corpuscular 102 fL 79-97 H volume [Entitic volume] by Automated count (test code = 787-2) Erythrocyte mean corpuscular 33.8 pg 26.6-33.0 H hemoglobin [Entitic mass] by Automated count (test code = 785-6) Erythrocyte mean corpuscular 33.2 g/dL 31.5-35.7 hemoglobin concentration [Mass/volume] by Automated count (test code = 786-4) Erythrocyte distribution width 15.2 % 11.6-15.4 [Ratio] by Automated count (test code = 788-0) Platelets [#/volume] in Blood 64 x10e3/uL 150-450 L by Automated count (test code = 777-3) Neutrophils/100 leukocytes in 65 % not estab. Blood by Automated count (test code = 770-8) Lymphocytes/100 leukocytes in 21 % not estab. Blood by Automated count (test code = 736-9) Monocytes/100 leukocytes in 9 % not estab. Blood by Automated count (test code = 5905-5) Eosinophils/100 leukocytes in 4 % not estab. Blood by Automated count (test code = 713-8) Basophils/100 leukocytes in 1 % not estab. Blood by Automated count (test code = 706-2) Neutrophils [#/volume] in Blood 2.0 x10e3/uL 1.4-7.0 by Automated count (test code = 751-8) Lymphocytes [#/volume] in Blood 0.6 x10e3/uL 0.7-3.1 L by Automated count (test code = 731-0) Monocytes [#/volume] in Blood 0.3 x10e3/uL 0.1-0.9 by Automated count (test code = 742-7) Eosinophils [#/volume] in Blood 0.1 x10e3/uL 0.0-0.4 by Automated count (test code = 711-2) Basophils [#/volume] in Blood 0.0 x10e3/uL 0.0-0.2 by Automated count (test code = 704-7) Immature granulocytes/100 0 % not estab. leukocytes in Blood by Automated count (test code = 25122-9) Immature granulocytes 0.0 x10e3/uL 0.0-0.1 [#/volume] in Blood by Automated count (test code = 98423-3) Morphology [Interpretation] in note: Blood Narrative (test code = 49425-6) [facility] or Plasma 2022-12-29 00:00:00 Test Item Value Reference Range Interpretation Comments Glucose [Mass/volume] in Serum 105 mg/dL 70-99 H or Plasma (test code = 2345-7) Urea nitrogen [Mass/volume] in 27 mg/dL 8-27 Serum or Plasma (test code = 3094-0) Creatinine [Mass/volume] in 1.28 mg/dL 0.76-1.27 H Serum or Plasma (test code = 2160-0) Glomerular filtration 57 mL/min/1.73 >59 L rate/1.73 sq M.predicted [Volume Rate/Area] in Serum, Plasma or Blood by Creatinine-based formula (CKD-EPI 2020) (test code = 76648-3) Urea nitrogen/Creatinine [Mass 21 10-24 Ratio] in Serum or Plasma (test code = 3097-3) Sodium [Moles/volume] in Serum 143 mmol/L 134-144 or Plasma (test code = 2951-2) Potassium [Moles/volume] in 4.5 mmol/L 3.5-5.2 Serum or Plasma (test code = 2823-3) Chloride [Moles/volume] in 104 mmol/L 96-106 Serum or Plasma (test code = 2074-0) Carbon dioxide, total 25 mmol/L 20-29 [Moles/volume] in Serum or Plasma (test code = 2027-) Calcium [Mass/volume] in Serum 9.1 mg/dL 8.6-10.2 or Plasma (test code = 07555-1) Protein [Mass/volume] in Serum 6.6 g/dL 6.0-8.5 or Plasma (test code = 2885-2) Albumin [Mass/volume] in Serum 3.5 g/dL 3.8-4.8 L or Plasma (test code = 1751-7) Globulin [Mass/volume] in 3.1 g/dL 1.5-4.5 Serum by calculation (test code = 17491-8) Albumin/Globulin [Mass Ratio] 1.1 1.2-2.2 L in Serum or Plasma (test code = 1759-0) Bilirubin.total [Mass/volume] 0.8 mg/dL 0.0-1.2 in Serum or Plasma (test code = 1974-) Alkaline phosphatase 105 IU/L 44-121 [Enzymatic activity/volume] in Serum or Plasma (test code = 6768-6) Aspartate aminotransferase 20 IU/L 0-40 [Enzymatic activity/volume] in Serum or Plasma (test code = 1920-8) Alanine aminotransferase 13 IU/L 0-44 [Enzymatic activity/volume] in Serum or Plasma (test code = 1742-6) [facility] [id number] 00:00:00 Test Item Value Reference Range Interpretation Comments Hemoglobin A1c/Hemoglobin.total in 5.5 % 4.8-5.6 Blood (test code = 4548-4) Glucose mean value [Mass/volume] in 111 mg/dL Blood Estimated from glycated hemoglobin (test code = 71511-9) [facility] W Auto Differential panel - [id number] 00:00:00 Test Item Value Reference Range Interpretation Comments Leukocytes [#/volume] in Blood 3.0 x10e3/uL 3.4-10.8 L by Automated count (test code = 6690-2) Erythrocytes [#/volume] in 3.25 x10e6/uL 4.14-5.80 L Blood by Automated count (test code = 789-8) Hemoglobin [Mass/volume] in 11.0 g/dL 13.0-17.7 L Blood (test code = 718-7) Hematocrit [Volume Fraction] of 33.1 % 37.5-51.0 L Blood by Automated count (test code = 4544-3) Erythrocyte mean corpuscular 102 fL 79-97 H volume [Entitic volume] by Automated count (test code = 787-2) Erythrocyte mean corpuscular 33.8 pg 26.6-33.0 H hemoglobin [Entitic mass] by Automated count (test code = 785-6) Erythrocyte mean corpuscular 33.2 g/dL 31.5-35.7 hemoglobin concentration [Mass/volume] by Automated count (test code = 786-4) Erythrocyte distribution width 15.2 % 11.6-15.4 [Ratio] by Automated count (test code = 788-0) Platelets [#/volume] in Blood 64 x10e3/uL 150-450 L by Automated count (test code = 777-3) Neutrophils/100 leukocytes in 65 % not estab. Blood by Automated count (test code = 770-8) Lymphocytes/100 leukocytes in 21 % not estab. Blood by Automated count (test code = 736-9) Monocytes/100 leukocytes in 9 % not estab. Blood by Automated count (test code = 5905-5) Eosinophils/100 leukocytes in 4 % not estab. Blood by Automated count (test code = 713-8) Basophils/100 leukocytes in 1 % not estab. Blood by Automated count (test code = 706-2) Neutrophils [#/volume] in Blood 2.0 x10e3/uL 1.4-7.0 by Automated count (test code = 751-8) Lymphocytes [#/volume] in Blood 0.6 x10e3/uL 0.7-3.1 L by Automated count (test code = 731-0) Monocytes [#/volume] in Blood 0.3 x10e3/uL 0.1-0.9 by Automated count (test code = 742-7) Eosinophils [#/volume] in Blood 0.1 x10e3/uL 0.0-0.4 by Automated count (test code = 711-2) Basophils [#/volume] in Blood 0.0 x10e3/uL 0.0-0.2 by Automated count (test code = 704-7) Immature granulocytes/100 0 % not estab. leukocytes in Blood by Automated count (test code = 96595-2) Immature granulocytes 0.0 x10e3/uL 0.0-0.1 [#/volume] in Blood by Automated count (test code = 68482-0) Morphology [Interpretation] in note: Blood Narrative (test code = 53229-2) [facility] - [facility] or Plasma 2022-12-29 00:00:00 Test Item Value Reference Range Interpretation Comments Glucose [Mass/volume] in Serum 105 mg/dL 70-99 H or Plasma (test code = 2345-7) Urea nitrogen [Mass/volume] in 27 mg/dL 8-27 Serum or Plasma (test code = 3094-0) Creatinine [Mass/volume] in 1.28 mg/dL 0.76-1.27 H Serum or Plasma (test code = 2160-0) Glomerular filtration 57 mL/min/1.73 >59 L rate/1.73 sq M.predicted [Volume Rate/Area] in Serum, Plasma or Blood by Creatinine-based formula (CKD-EPI 2020) (test code = 84101-1) Urea nitrogen/Creatinine [Mass 21 10-24 Ratio] in Serum or Plasma (test code = 3097-3) Sodium [Moles/volume] in Serum 143 mmol/L 134-144 or Plasma (test code = 2951-2) Potassium [Moles/volume] in 4.5 mmol/L 3.5-5.2 Serum or Plasma (test code = 2823-3) Chloride [Moles/volume] in 104 mmol/L 96-106 Serum or Plasma (test code = 2075-0) Carbon dioxide, total 25 mmol/L 20-29 [Moles/volume] in Serum or Plasma (test code = 2027-9) Calcium [Mass/volume] in Serum 9.1 mg/dL 8.6-10.2 or Plasma (test code = 75923-0) Protein [Mass/volume] in Serum 6.6 g/dL 6.0-8.5 or Plasma (test code = 2885-2) Albumin [Mass/volume] in Serum 3.5 g/dL 3.8-4.8 L or Plasma (test code = 1751-7) Globulin [Mass/volume] in 3.1 g/dL 1.5-4.5 Serum by calculation (test code = 93531-2) Albumin/Globulin [Mass Ratio] 1.1 1.2-2.2 L in Serum or Plasma (test code = 1759-0) Bilirubin.total [Mass/volume] 0.8 mg/dL 0.0-1.2 in Serum or Plasma (test code = 1974-) Alkaline phosphatase 105 IU/L 44-121 [Enzymatic activity/volume] in Serum or Plasma (test code = 6768-6) Aspartate aminotransferase 20 IU/L 0-40 [Enzymatic activity/volume] in Serum or Plasma (test code = 1920-8) Alanine aminotransferase 13 IU/L 0-44 [Enzymatic activity/volume] in Serum or Plasma (test code = 1742-6) [facility]/Hemoglobin.total in [id number] 00:00:00 Test Item Value Reference Range Interpretation Comments Hemoglobin A1c/Hemoglobin.total in 5.5 % 4.8-5.6 Blood (test code = 4548-4) Glucose mean value [Mass/volume] in 111 mg/dL Blood Estimated from glycated hemoglobin (test code = 62366-8) [facility] 2000 [facility] - Serum or [id number] 00:00:00 Test Item Value Reference Range Interpretation Comments Glucose [Mass/volume] in Serum 194 mg/dL 70-99 H or Plasma (test code = 2345-7) Urea nitrogen [Mass/volume] in 17 mg/dL 8-27 Serum or Plasma (test code = 3094-0) Creatinine [Mass/volume] in 0.87 mg/dL 0.76-1.27 Serum or Plasma (test code = 2160-0) eGFR (test code = eGFR) 88 mL/min/1.73 >59 Urea nitrogen/Creatinine [Mass 20 10-24 Ratio] in Serum or Plasma (test code = 3097-3) Sodium [Moles/volume] in Serum 141 mmol/L 134-144 or Plasma (test code = 2951-2) Potassium [Moles/volume] in 4.8 mmol/L 3.5-5.2 Serum or Plasma (test code = 2823-3) Chloride [Moles/volume] in 105 mmol/L 96-106 Serum or Plasma (test code = 5-0) Carbon dioxide, total 25 mmol/L 20-29 [Moles/volume] in Serum or Plasma (test code = 2027-) Calcium [Mass/volume] in Serum 9.1 mg/dL 8.6-10.2 or Plasma (test code = 97802-1) [facility] [Mass/volume] in Serum or [id number] 00:00:00 Test Item Value Reference Range Interpretation Comments Urate [Mass/volume] in Serum or 5.8 mg/dL 3.8-8.4 Plasma (test code = 3084-1) [facility] 2000 [facility] - Serum or [id number] 00:00:00 Test Item Value Reference Range Interpretation Comments Glucose [Mass/volume] in Serum 190 mg/dL 65-99 H or Plasma (test code = 2345-7) Urea nitrogen [Mass/volume] in 19 mg/dL 8-27 Serum or Plasma (test code = 3094-0) Creatinine [Mass/volume] in 0.76 mg/dL 0.76-1.27 Serum or Plasma (test code = 2160-0) eGFR (test code = eGFR) 93 mL/min/1.73 >59 Urea nitrogen/Creatinine [Mass 25 10-24 H Ratio] in Serum or Plasma (test code = 3097-3) Sodium [Moles/volume] in Serum 141 mmol/L 134-144 or Plasma (test code = 2951-2) Potassium [Moles/volume] in 4.6 mmol/L 3.5-5.2 Serum or Plasma (test code = 2823-3) Chloride [Moles/volume] in 106 mmol/L 96-106 Serum or Plasma (test code = 5-0) Carbon dioxide, total 23 mmol/L 20-29 [Moles/volume] in Serum or Plasma (test code = 2027-) Calcium [Mass/volume] in Serum 9.1 mg/dL 8.6-10.2 or Plasma (test code = 22059-9) [facility] CenterNatriuretic peptide B [Mass/volume] in Serum or Plasma 2022-02-21 00:00:00 Test Item Value Reference Range Interpretation Comments Natriuretic peptide B 50.3 pg/mL 0.0-100.0 [Mass/volume] in Serum or Plasma (test code = 62176-2) [facility] CenterUrate [Mass/volume] in Serum or [id number] 00:00:00 Test Item Value Reference Range Interpretation Comments Urate [Mass/volume] in Serum or 5.9 mg/dL 3.8-8.4 Plasma (test code = 3084-1) [facility] CenterHemoglobin A1c measurement device [id number] 17:03:00 Test Item Value Reference Range Interpretation Comments Hemoglobin A1c/Hemoglobin.total in 7.5 % 5.7-6.4 H Blood (test code = 4548-4) [facility] A[facility] measurement [facility] [id number] 17:03:00 Test Item Value Reference Range Interpretation Comments Hemoglobin A1c/Hemoglobin.total in 7.5 % 5.7-6.4 H Blood (test code = 4548-4) [facility] W/O [id number] 11:02:00 [facility] 1945 Sex: MFAX: Celia Rodriguez [phone] [place]: [address]: REG Name: MONSE KIM [facility] : 1945 Age/S: 75/M [address] [facility] Unit: [id number] Loc: [place], [place]: [place] [id number] Acct: [id number] Dis Date: Status: REG CLI PHONE #: [phone] Exam Date: 06/02/2020 1035 FAX #: [phone] Reason: DIABETES, CIRRHOSIS OF LIVER, ABORMAL WEIGHT LO EXAMS: CPT CODE: [id number] CT ABD PELVIS W/O CONT 98498 Dictation location: U19. CT ABDOMEN AND PELVIS WITHOUT IV CONTRAST HISTORY: DIABETES, CIRRHOSIS OF LIVER, ABNORMAL WEIGHT LOSS COMPARISON: None. TECHNIQUE: Axial CT images of the abdomen and pelvis were obtained with coronal and/or sagittal reformatted views. Au tomated exposure control, iterative reconstruction technique, and/or adjustment of mA and/or kV according to patient's size was utilized for radiation dose reduction. IV CONTRAST: None. PO CONTRAST: None. Lack of IV contrast limits evaluation of the parenchyma and vasculature. FINDINGS: Visualized lung bases are clear. The heart size is normal. Atherosclerotic calcifications affect the coronary arteries. The gallbladder is partially distended without surrounding inflammatory changes. The liver has anodular contour. There is a potential faint peripheral hypodensity in the right hepatic lobe measuring 1.5 cm (series 2, image 33). The spleen is enlarged. The unenhanced pancreas and adrenal glands are unremarkable. Both kidneys are similar in size and shape without evidence of hydronephrosis. A 2 mmnonobstructing right renal stone is present. There are probable small bilateral renal cysts measuring up to 1 cm. Urinary bladder is partially distended without wall thickening. The prostate is mildlyenlarged. No free air, free fluid or evidence of a bowel obstruction. The appendix is not definitely visualized. No localized inflammatory changes or fluid collection. No bowel wall thickening. Atherosclerotic calcifications affect the aorta and iliac arteries. No abdominal or pelvic adenopathy. Chronic bilateral spondylolysis of L4. Minimal grade 1 anterolisthesis PAGE 1 Signed Report (CONTINUED) FAX: Celia Rodriguez [phone] [place]: St: REG Name: MONSE KIM [facility] : 1945 Age/S: 75/M [address] Unit: [id number] Loc: [place], [place]: [place] [id number] Acct: [id number] Dis Date: Status: REG CLI PHONE #: [phone] Exam Date: FAX #: [phone] Reason: DIABETES, CIRRHOSIS OF LIVER, ABORMAL WEIGHT LO EXAMS: CPT CODE: [id number] CT ABD PELVIS W/O CONT 46630 (Continued) of L4 on L5. Moderate to severe lumbar spondylosis with severe spinal canal stenosis at L2-L3 secondary to bulging annulus and posterior osteophyte formation. IMPRESSION: Cirrhosis with splenomegaly. No ascites. Potential 1.5 cm lesion along the periphery of the right hepatic lobe. Recommend further assessment with an MRI abdomen without and with contrast utilizing the liver protocol. Nonobstructing right renal stone. at 1102 Reported and signed by: Abhay Shepherd M.D. CC: Celia Huynh MD Technologist: CED VIEIRA Trnscrd Dt/Tm: 06/02/2020 (1102) t.[email or web address] Orig Print D/T: S: 06/02/2020 (1105 PAGE 2 Signed Report
[2023-03-19 16:24] LABS: Absolute Lymphocytes (CBC) 0.7 K/uL (0.7-4.9); Hematocrit 31.9 % (39.6-49.0); Lymphocytes % 17.6 % (15.3-44.8); MCV 99.8 fL (80-100); Platelets 84 thou/uL (152-406); RBC Red Blood Cell Count 3.19 M/uL (4.33-5.43)
[2023-03-19 16:25] LABS: Protime INR 1.48
[2023-03-19 16:38] LABS: Albumin 2.9 g/dL (3.4-5.0); Bilirubin Direct 0.4 mg/dL (0-0.2); Bilirubin Indirect, Calculated 0.5 mg/dL (0.2-0.8); Bilirubin Total 0.9 mg/dL (0.2-1.0); Magnesium 1.6 mg/dL (1.6-2.4); Potassium 4.6 mEq/L (3.5-5.1); Protein, Total 6.9 g/dL (6.4-8.2)
[2023-03-19] MEDS ORDERED: FUROSEMIDE 40 MG/4 ML VIAL ONE (16:57)
--- NOTE | 2023-03-19 17:18 | RAD REPORT ---
EXAM DESCRIPTION: RADChest Single View03/19/2023 5:05 pm CLINICAL HISTORY: sob;Abdominal distention COMPARISON: Chest Single View dated 11/21/2020 TECHNIQUE: Portable AP view of the chest. FINDINGS: The lungs are clear apart from mild left basilar atelectasis. No pneumothorax or effusion . The cardiomediastinal contours are unremarkable. IMPRESSION: No acute cardiopulmonary process.
--- NOTE | 2023-03-19 17:42 | ER ---
Nurse's Notes [facility] Name: Carlos Salgado Age: 77 yrs Sex: Male : 1945 Arrival Date: 03/19/2023 Time: 15:29 Bed 8 Private MD: Diagnosis: Unspecified cirrhosis of liver;Other ascites;Edema, unspecified Presentation: 03/19 15:43 Chief complaint: Patient states: "I've had abdominal swelling for the past 2-3 months mb9 and my doctor said it was gas. It's gotten worse over the past few weeks and now it makes me feel SOB.". Coronavirus screen: Vaccine status: Patient reports receiving the 2nd dose of the covid vaccine. Ebola Screen: No symptoms or risks identified at this time. Initial Sepsis Screen: Does the patient meet any 2 criteria? HR > 90 bpm. Does the patient have a suspected source of infection? No. Patient's initial sepsis screen is negative. Risk Assessment: Do you want to hurt yourself or someone else? Patient reports no desire to harm self or others. Onset of symptoms was March 19, 2023. 15:43 Method Of Arrival: Wheelchair mb9 15:43 Acuity: ALEXANDER 3 mb9 Triage Assessment: 15:45 General: Appears uncomfortable, Behavior is calm, cooperative. Pain: Complains of pain mb9 in abdomen. EENT: No signs and/or symptoms were reported regarding the EENT system. Neuro: Zamorano Agitation-Sedation Scale (RASS): 0 - Alert and Calm Level of Consciousness is awake, alert, obeys commands, Oriented to person, place, time, situation, Appropriate for age. Cardiovascular: Patient's skin is warm and dry. Respiratory: Reports shortness of breath Airway is patent Respiratory effort is even, unlabored, Respiratory pattern is regular, symmetrical. Respiratory: Onset: The symptoms/episode began/occurred 1 week, the patient has mild shortness of breath. GI: Abdomen is round distended. Historical: - Allergies: 15:44 No Known Allergies; mb9 - PMHx: 15:44 Diabetes - NIDDM; Hypertension; Cirrhosis of liver; mb9 - PSHx: 15:44 Appendectomy; mb9 - Immunization history:: Adult Immunizations up to date. - Social history:: Smoking status: Patient denies any tobacco usage or history of. - Family history:: not pertinent. - Hospitalizations: : No recent hospitalization is reported. Screenin:00 [facility] ED Fall Risk Assessment (Adult) History of falling in the last 3 months, ko1 including since admission No falls in past 3 months (0 pts) Confusion or Disorientation No (0 pts) Intoxicated or Sedated No (0 pts) Impaired Gait No (0 pts) Mobility Assist Device Used No (0 pt) Altered Elimination No (0 pt) Score/Fall Risk Level 0 - 2 = Low Risk Oriented to surroundings, Maintained a safe environment, Educated pt \\T\\ family on fall prevention, incl call for assistance when getting out of bed, Assessed \\T\\ reinforced patient's understanding of fall precautions, Provided non-skid footwear, Hourly rounding (assess needs \\T\\ fall precautionary measures) done, Used ambulatory aids as needed (educated on \\T\\ assisted with), Used gait belt as appropriate. Abuse screen: Denies threats or abuse. Denies injuries from another. Nutritional screening: No deficits noted. Tuberculosis screening: No symptoms or risk factors identified. Assessment: 16:00 General: Appears in no apparent distress. uncomfortable, Behavior is calm, cooperative, ko1 appropriate for age. Pain: Complains of pain in abdomen. Neuro: No deficits noted. Cardiovascular: Rhythm is regular. Respiratory: Airway is patent Respiratory effort is even, Respiratory pattern is regular, Breath sounds are clear bilaterally. GI: Abdomen is noted to have ascites. : No deficits noted. EENT: No deficits noted. Derm: No deficits noted. Musculoskeletal: No deficits noted. 19:10 Reassessment: Patient appears in no apparent distress at this time. Patient and/or jb4 family updated on plan of care and expected duration. Pain level reassessed. Patient is alert, oriented x 3, equal unlabored respirations, skin warm/dry/pink. Vital Signs: 15:43 BP 180 / 86; Pulse 110; Resp 20; Temp 98.6(O); Pulse Ox 96% on R/A; Weight 102.51 kg mb9 (M); Height 5 ft. 11 in. ; 16:00 BP 163 / 87; Pulse 91; Resp 19; Pulse Ox 98% on R/A; ko1 18:50 BP 104 / 92; Pulse 93; Resp 16; Pulse Ox 96% ; ko1 19:15 BP 125 / 76; Pulse 88; Resp 16; Pulse Ox 97% on R/A; jb4 15:43 Body Mass Index 31.52 (102.51 kg, 180.34 cm) 9 ED Course: 15:33 Patient arrived in ED. im 15:35 Liborio Cabezas MD is Attending Physician. rn 15:43 Arm band placed on. mb9 15:44 Triage completed. mb9 15:55 Desiree Sanches, RN is Primary Nurse. ko1 16:00 Patient has correct armband on for positive identification. Bed in low position. Call ko1 light in reach. Side rails up X2. Provided Education on: na. Client placed on continuous cardiac and pulse oximetry monitoring. NIBP monitoring applied. secured entrance monitor on. Door closed. Noise minimized. Lights dimmed. Warm blanket given. 16:00 Inserted saline lock: 20 gauge in right forearm, using aseptic technique. Blood ko1 collected. 16:08 BNP Sent. ko1 16:08 BMP Sent. ko1 16:08 CBC with Diff Sent. ko1 16:08 Hepatic Function Sent. ko1 16:08 Magnesium Sent. ko1 16:08 NT PRO-BNP Sent. ko1 16:08 PT-INR Sent. ko1 16:08 Ptt, Activated Sent. ko1 16:08 Troponin HS Sent. ko1 17:07 XRAY CXR (1 view) In Process Unspecified. EDMS 17:17 CT Abd/Pelvis - IV Contrast Only In Process Unspecified. EDMS 17:40 Giorgi Dumont MD is Hospitalizing Provider. rn Administered Medications: 16:46 Drug: Furosemide IVP 40 mg IVP once; give over 2 minutes Route: IVP; Site: right ko1 forearm; Outcome: 17:41 Decision to Hospitalize by Provider. rn 22:14 Patient left the ED. jb4 Signatures: Dispatcher [employer] EDMS Liborio Cabezas MD MD rn Bryson, James, RN RN jb4 Desiree Sanches, RN RN ko1 Irish To RN RN mb9 Yessy Devlin im
--- NOTE | 2023-03-19 17:42 | EDPHYS ---
Physician Documentation [facility] Name: Carlos Salgado Age: 77 yrs Sex: Male : 1945 Arrival Date: 03/19/2023 Time: 15:29 Bed 8 Private MD: ED Physician Liborio Cabezas HPI: 03/19 15:45 This 77 yrs old Male presents to ER via Wheelchair with complaints of Breathing rn Difficulty. 15:45 The patient has shortness of breath at rest, with light activity. Onset: The rn symptoms/episode began/occurred 1 week(s) ago. Duration: The symptoms are continuous. The patient's shortness of breath is aggravated by exertion, light activity, walking, is alleviated by Supine position. Associated signs and symptoms: Pertinent negatives: fever, hemoptysis. Severity of symptoms: At their worst the symptoms were moderate in the emergency department the symptoms are unchanged. The patient has not experienced similar symptoms in the past. The patient has been recently seen by a physician:. Patient reports increased abdominal distention and shortness of breath over the last week. Seen by PCP and had ultrasound that showed small amount of ascites 2 weeks ago. Patient has cirrhosis, attributed to hereditary cause with majority of his family members diagnosed with nonalcoholic cirrhosis in past. Patient reports swelling all over but worse in the abdomen. No fever. No chest pain. No trauma.. Historical: - Allergies: 15:44 No Known Allergies; mb9 - PMHx: 15:44 Diabetes - NIDDM; Hypertension; Cirrhosis of liver; mb9 - PSHx: 15:44 Appendectomy; mb9 - Immunization history:: Adult Immunizations up to date. - Social history:: Smoking status: Patient denies any tobacco usage or history of. - Family history:: not pertinent. - Hospitalizations: : No recent hospitalization is reported. ROS: 15:45 Constitutional: Negative for fever, chills, and weight loss, Cardiovascular: Positive rn for lower extremity swelling Respiratory: Positive for shortness of breath Abdomen/GI: Positive for abdominal distention and discomfort MS/Extremity: Negative for injury and deformity, Skin: Negative for injury, rash, and discoloration, Neuro: Negative for headache, weakness, numbness, tingling, and seizure, Exam: 15:45 Constitutional: This is a well developed, well nourished patient who is awake, alert, rn slow to get into bed with moderate amount of dyspnea. Large abdomen. Head/Face: Normocephalic, atraumatic. Cardiovascular: Tachycardic, regular. No pulse deficits Respiratory: Mild tachypnea, diminished at bases Abdomen/GI: Protuberant abdomen with positive fluid wave MS/ Extremity: Pulses equal, no cyanosis. 2+ pitting edema bilateral lower extremities. Equal circumference Neuro: Awake and alert, GCS 15 17:01 ECG was reviewed by the Attending Physician. rn Vital Signs: 15:43 BP 180 / 86; Pulse 110; Resp 20; Temp 98.6(O); Pulse Ox 96% on R/A; Weight 102.51 kg mb9 (M); Height 5 ft. 11 in. ; 16:00 BP 163 / 87; Pulse 91; Resp 19; Pulse Ox 98% on R/A; ko1 18:50 BP 104 / 92; Pulse 93; Resp 16; Pulse Ox 96% ; ko1 19:15 BP 125 / 76; Pulse 88; Resp 16; Pulse Ox 97% on R/A; jb4 15:43 Body Mass Index 31.52 (102.51 kg, 180.34 cm) mb9 MDM: 15:35 Patient medically screened. rn 17:39 Differential diagnosis: Anemia pulmonary edema, anasarca, ascites, cirrhosis with rn ascites. Data reviewed: vital signs, nurses notes, lab test result(s), radiologic studies, CT scan, plain films, and as a result, I will admit patient. Consideration of Admission/Observation Patient was admitted/placed on observation. Escalation of care including admission/observation considered. Independent interpretation of the following test(s) in the Emergency Department CT Scan: My interpretation is CT scan abdomen images show moderate to large amount of ascites per my interpretation. Counseling: I had a detailed discussion with the patient and/or guardian regarding the historical points, exam findings, and any diagnostic results supporting the discharge/admit diagnosis, lab results, radiology results, the need for further work-up and treatment in the hospital. Response to treatment: There is no appreciated change of the patient's symptoms at this time, and as a result, I will admit patient. 17:45 Discussion of test interpretation with radiology: I had a discussion with radiology technologist regarding a test interpretation. Discussed CT images with Dr. Devries, agrees large amount of ascites but no other acute findings. 03/19 15:43 Order name: BMP; Complete Time: 16:39 rn 03/19 15:43 Order name: CBC with Diff; Complete Time: 16:39 rn 03/19 15:43 Order name: Hepatic Function; Complete Time: 16:39 rn 03/19 15:43 Order name: Magnesium; Complete Time: 16:39 rn 03/19 15:43 Order name: NT PRO-BNP; Complete Time: 16:39 rn 03/19 15:43 Order name: PT-INR; Complete Time: 16:28 rn 03/19 15:43 Order name: Ptt, Activated; Complete Time: 16:28 rn 03/19 15:43 Order name: Troponin HS; Complete Time: 16:39 rn 03/19 15:43 Order name: BNP rn 03/19 15:43 Order name: XRAY CXR (1 view); Complete Time: 17:30 rn 03/19 15:43 Order name: CT Abd/Pelvis - IV Contrast Only; Complete Time: 17:53 rn 03/19 15:43 Order name: EKG; Complete Time: 15:44 rn 03/19 15:43 Order name: Cardiac monitoring; Complete Time: 15:55 rn 03/19 15:43 Order name: EKG - Nurse/Tech; Complete Time: 16:23 rn 03/19 15:43 Order name: IV Saline Lock; Complete Time: 16:08 rn 03/19 15:43 Order name: Labs collected and sent; Complete Time: 16:08 rn 03/19 15:43 Order name: O2 Per Protocol; Complete Time: 15:55 rn 03/19 15:43 Order name: O2 Sat Monitoring; Complete Time: 15:55 rn EC:01 Rate is 90 beats/min. Rhythm is regular. QRS [place] is Normal. NH interval is normal. QRS rn interval is normal. QT interval is normal. No Q waves. T waves are Normal. No ST changes noted. Clinical impression: NSR w/ Non-specific ST/T Changes. Interpreted by me. Reviewed by me. Administered Medications: 16:46 Drug: Furosemide IVP 40 mg IVP once; give over 2 minutes Route: IVP; Site: right ko1 forearm; Disposition Summary: 03/19/23 17:41 Hospitalization Ordered Notes: Hospitalization Status: Observation rn Provider: Tim, Giorgi rn Location: Telemetry/MedSurg (observation) rn Condition: Stable rn Problem: an ongoing problem rn Symptoms: have worsened rn Bed/Room Type: Standard rn Room Assignment: 222(03/19/23 19:10) dw Diagnosis - Unspecified cirrhosis of liver rn - Other ascites rn - Edema, unspecified rn Forms: - Medication Reconciliation Form rn - SBAR form rn - Leadership Thank You Letter rn Signatures: Dispatcher [employer] Payton Medina RN RN Liborio Vega MD MD rn Oliver, Kathy, RN RN ko1 Irish To RN RN mb9 Corrections: (The following items were deleted from the chart) 19:10 17:41 rn frandy
--- NOTE | 2023-03-19 17:49 | RAD REPORT ---
EXAM DESCRIPTION: CT - Abdomen Pelvis W Contrast - 03/19/2023 5:15 pm CLINICAL HISTORY: ABDOMINAL DISTENTION COMPARISON: Abdomen Pelvis W Contrast dated 03/21/2017 TECHNIQUE: Thin cut axial CT imaging of the abdomen and pelvis was performed following intravenous a dministration of 100 mL Isovue 300. Multiplanar reformats were generated and reviewed. All CT scans are performed using dose optimization technique as appropriate and may include automated exposure control or mA/KV adjustment according to patient size. FINDINGS: Small left pleural effusion with minimal underlying atelectasis. Elevation of the left hem idiaphragm. The liver shows nodular contour with relative caudate lobe hypertrophy. Spleen is enlarged, measuring 17 cm in long axis. Adrenal glands, and pancreas show no suspicious findings. Gallbladder and biliar y tree are also without suspicious finding. Symmetric renal function is seen with no hydronephrosis or suspicious renal mass. Small bilateral cor tical cysts, not well characterized. 11 millimeter focus of calcification near the left renal pelvis may relate to vascular calcification or a nonobstructing calculus. 8 millimeter right superior pole a nd left lower pole nonobstructing calculi as well. No dilated bowel loops or bowel wall thickening. Mild apparent wall thickening of the distal duodenum and proximal jejunum may relate to the presence of pronounced ascites and a degree of portal hyperte nsion. Large volume of free ascites. No free air, fluid collections, or inflammatory stranding. No he rnia, mass or bulky lymphadenopathy. The urinary bladder is without significant finding. No suspicious bony findings. IMPRESSION: Large volume of ascites. Stigmata of liver cirrhosis and splenomegaly as above. No other acute findings. Incidental findings including nonobstructing bilateral renal calculi as abov e.
--- NOTE | 2023-03-19 18:53 | P.HP ---
Certification for Inpatient Patient admitted to: Observation With expected LOS: <2 Midnights Patient will require the following post-hospital care: None Practitioner: I am a practitioner with admitting privileges, knowledge of patient current condition, hospital course, and medical plan of care. Services: Services provided to patient in accordance with Admission requirements found in Title 42 Section 412.3 of the Code of Federal Regulations Patient History Date of Service: 03/19/23 Reason for admission: Ascites, dyspnea History of Present Illness: 77-year-old male with history of nonalcoholic fatty liver/cirrhosis, insulin- dependent diabetes, hypertension, hyperlipidemia presents to the emergency department with chief complaint of abdominal swelling, shortness of breath. He reports that approximate 3 weeks ago he was seen by his GI doctor who ordered abdominal ultrasound which showed a small amount of ascites, he has been taking his prescribed Lasix and spironolactone at home. He reports increasing abdominal swelling over the course of last 3 weeks now with large amount of ascites and shortness of breath. He was evaluated in the emergency department his labs are significant for platelet count of 84 INR 1.48 AST 47 ALT 28 alk phos 138 T. bili 0.9 T. bili 0.4 chest x-ray negative for acute findings CT abdomen pelvis showed large volume ascites, splenomegaly. Patient may need to be admitted for abdominal paracentesis given his symptomatic large volume ascites. This will be his first paracentesis. Allergies No Known Allergies Allergy (Unverified 03/21/17 12:23) - Past Medical/Surgical History -: Becker/cirrhosis -: Insulin-dependent diabetes -: Hypertension -: Hyperlipidemia -: Appendectomy Psychosocial/ Personal History: Lives at home, alone. - Family History Sister -: Liver disease Brother -: Liver disease Mother -: Liver disease - Social History Smoking Status: Never smoker Alcohol use: No CD- Drugs: No Caffeine use: Yes Place of Residence: Home Review of Systems 10-point ROS is otherwise unremarkable Respiratory: Shortness of Breath Gastrointestinal: Abdominal Pain Physical Examination - Physical Exam General: Alert, In no apparent distress, Oriented x3 HEENT: Atraumatic, PERRLA, Mucous membr. moist/pink, EOMI, Sclerae nonicteric Neck: Supple, 2+ carotid pulse no bruit, No LAD, Without JVD or thyroid abnormality Respiratory: Clear to auscultation bilaterally, Normal air movement Cardiovascular: No edema, Regular rate/rhythm, Normal S1 S2 Capillary refill: <2 Seconds Gastrointestinal: Normal bowel sounds, No tenderness, Distended, Ascites Musculoskeletal: No tenderness Integumentary: No rashes Neurological: Normal speech, Normal strength at 5/5 x4 extr, Normal tone, Normal affect - Studies Laboratory Data (last 24 hrs) 03/19/23 03/19/23 03/19/23 16:00 16:00 16:00 WBC 3.90 L Hgb 11.1 L Hct 31.9 L Plt Count 84 L PT 16.3 H INR 1.48 APTT 34.7 Sodium 143 Potassium 4.6 BUN 24 H Creatinine 1.11 Glucose 150 H Magnesium 1.6 Total Bilirubin 0.9 AST 47 H ALT 28 Alkaline Phosphatase 138 H Assessment and Plan - Plan Assessment: Dyspnea secondary to large volume ascites-underlying nonalcoholic hepatic steatosis/cirrhosis Thrombocytopenia Diabetes mellitus type 2insulin-dependent Hypertension Hyperlipidemia Plan: Dyspnea secondary to large volume ascites-underlying nonalcoholic hepatic steatosis/cirrhosis Orders placed for abdominal paracentesis. Continue home medications including Lasix, spironolactone. Please follow-up with his GI doctor outpatient. Thrombocytopenia Secondary to cirrhosis, monitor daily, hold off on Lovenox/heparin. Diabetes mellitus type 2insulin-dependent ACHS Accu-Chek, sliding scale insulin. A1c in the morning. Hypertension Hyperlipidemia Continue home medications. DVT PPX: SCDs Code status: Full Discharge Plan: Home Plan to discharge in: 24 Hours - Advance Directives Does patient have a Living Will: No Does patient have a Durable POA for Healthcare: No - Code Status/Comfort Care Code Status Assessed: Yes (Full code) Critical Care: No Time Spent Managing Pts Care (In Minutes): 55
[2023-03-19] MEDS ORDERED: ONDANSETRON 4 MG/2 ML VIAL IV PRN (22:14)
[2023-03-20 00:34] LABS: Specific Gravity > 1.030 (1.005-1.030); Urine Bilirubin NEGATIVE (Negative); Urine Blood Negative (Negative); Urine Clarity Clear (Clear); Urine Color Light-Yellow (Yellow); Urine Glucose NEGATIVE (Negative); Urine Protein NEGATIVE (Negative); Urine Urobilinogen Normal (Normal)
[2023-03-20 03:34] LABS: Protime INR 1.5
[2023-03-20 03:35] LABS: Absolute Lymphocytes (CBC) 0.6 K/uL (0.7-4.9); Hematocrit 27.7 % (39.6-49.0); Lymphocytes % 19.3 % (15.3-44.8); MCV 99.7 fL (80-100); Platelets 64 thou/uL (152-406); RBC Red Blood Cell Count 2.78 M/uL (4.33-5.43)
[2023-03-20 04:03] LABS: Albumin 2.6 g/dL (3.4-5.0); Bilirubin Total 0.6 mg/dL (0.2-1.0); Potassium 3.8 mEq/L (3.5-5.1); Protein, Total 6.1 g/dL (6.4-8.2)
[2023-03-20] MEDS ORDERED: ALBUTEROL 2.5 MG/3 ML NEB SOL NEB PRN (08:00)
[2023-03-20] MEDS ORDERED: ALBUTEROL 2.5 MG/3 ML NEB SOL NEB SCH (08:00)
[2023-03-20] MEDS ORDERED: SEMAGLUTIDE 7 MG PO SCH (09:00)
[2023-03-20] MEDS ORDERED: ALBUTEROL INHALER 60 PUFF/8 GM IH SCH (09:00)
[2023-03-20] MEDS ORDERED: ALBUMIN HUMAN 25% 300 ML IV ONE (11:06)
--- NOTE | 2023-03-20 11:42 | EKG ---
Test Date: 2023-03-19 Test Time: 16:17:54 Primer Charger: BHAVANI MEASUREMENT RESULTS: Intervals: Rate: 90 SD: 148 QRSD: 82 QT: 350 QTc: 428 [place]: P: 67 SD: 148 QRS: 69 T: 87 INTERPRETIVE STATEMENTS: Normal sinus rhythm Cannot rule out Anterior infarct, age undetermined Abnormal ECG Compared to ECG 11/21/2020 14:12:59 No significant changes Electronically Signed On 03-20-23 11:40:05 CDT by David Vásquez
[2023-03-20] MEDS: allopurinoL 300 MG TAB PO SCH (11:51)
--- NOTE | 2023-03-20 11:51 | RAD REPORT ---
EXAM DESCRIPTION: US - Paracentesis Proc Guidance - 03/20/2023 9:54 am CLINICAL HISTORY: Liver disease with ascites FINDINGS: The risks, benefits and alternatives to the procedure were explained to the patient and in formed consent obtained. The skin and deeper tissues were anesthetized with Lidocaine. Under sonographic guidance an 8 Maori catheter was placed into the right lower quadrant. 8.8 liters of yellow fluid removed. Fluid sent to the lab. The patient experienced no immediate complication. IMPRESSION: Paracentesis
[2023-03-20] MEDS: BUPROPION HCL XL 150 MG TAB PO SCH (11:52)
[2023-03-20] MEDS: METOPROLOL XL 25 MG TAB PO SCH ×2 (11:52→20:59)
[2023-03-20] MEDS: VITAMIN D 1000 UNIT TAB PO SCH (11:54)
[2023-03-20] MEDS: lisinopriL 10 MG TAB PO SCH (11:54)
[2023-03-20] MEDS: SERTRALINE HCL 100 MG TAB PO SCH (11:54)
[2023-03-20] MEDS: OXYBUTYNIN ER 5 MG TAB PO SCH (11:55)
[2023-03-20] MEDS: SPIRONOLACTONE 25 MG TABLET PO SCH (11:55)
[2023-03-20] MEDS: gemfibroziL 600 MG TAB PO SCH ×2 (11:56→20:54)
[2023-03-20] MEDS: METFORMIN HCL 500 MG TAB PO SCH ×2 (11:57→20:55)
[2023-03-20] MEDS: FUROSEMIDE 40 MG TABLET PO SCH (11:57)
[2023-03-20] MEDS: PANTOPRAZOLE 40MG TABLET PO SCH (11:58)
[2023-03-20] MEDS ORDERED: INFLUENZA VACCINE (for 6+ mo) 0.5 ML DOSE IMVAC ONE (12:00)
[2023-03-20 12:51] LABS: Appearance SLT. TURBID (CLEAR); Body Fluid Source PERITONEAL; Body Fluid WBC 131 /mm^3; Color of fluid Yellow (COLORLESS)
--- NOTE | 2023-03-20 13:28 | P.PN ---
Subjective Date of Service: 03/20/23 Primary Care Provider: Dr. Jocelynn Poe Chief Complaint: Ascites, dyspnea Subjective: No new changes, No C/O voiced (Waiting for paracentesis planned today), NPO, Doing well <Artie Washington - Last Filed: 03/20/23 13:28> Date of Service: 03/20/23 Primary Care Provider: SOO <Jason Cabezas - Last Filed: 03/20/23 21:33> Review of Systems 10-point ROS is otherwise unremarkable General: Weakness Eyes: Unremarkable ENT: Unremarkable Respiratory: SOB with Excertion (Breathing normal on room air) Cardiovascular: Unremarkable Gastrointestinal: Distention Genitourinary: Unremarkable Musculoskeletal: Atrophy Integumentary: Unremarkable Neurological: Weakness (Generalized weakness), Unremarkable <Artie Washington - Last Filed: 03/20/23 13:28> Physical Examination - Vital Signs Temperature: 97.9 F Blood Pressure: 142/68 Pulse: 87 Respirations: 18 Pulse Ox (%): 95 - Physical Exam General: Alert, In no apparent distress, Oriented x3, Cooperative HEENT: Atraumatic, Normocephalic, PERRLA, Mucous membr. moist/pink Neck: 2+ carotid pulse no bruit, JVD not distended Respiratory: Clear to auscultation bilaterally, Diminished (Advised) Cardiovascular: No edema, Normal S1 S2 Capillary refill: <2 Seconds Gastrointestinal: Normal bowel sounds, No tenderness, No masses, No rebound, Other (Ascitis, ), Distended, Ascites Musculoskeletal: No clubbing, No swelling, No contractures, No erythema, No tenderness, No warmth Integumentary: No rashes, No breakdown, No significant lesion, No tenderness/swelling, No erythema, No warmth, No cyanosis Neurological: Normal speech, Normal strength at 5/5 x4 extr, Normal tone, Sensation intact, Normal reflexes 2+, Normal affect - Studies Laboratory Data (last 24 hrs) 03/19/23 03/19/23 03/19/23 16:00 16:00 16:00 WBC 3.90 L Hgb 11.1 L Hct 31.9 L Plt Count 84 L PT 16.3 H INR 1.48 APTT 34.7 Sodium 143 Potassium 4.6 BUN 24 H Creatinine 1.11 Glucose 150 H Magnesium 1.6 Total Bilirubin 0.9 AST 47 H ALT 28 Alkaline Phosphatase 138 H <Artie Washington - Last Filed: 03/20/23 13:28> Assessment And Plan - Plan Assessment and plan Assessment Dyspnea on mild exertion due to enlarging ascites Nonalcoholic hepatic steatosis cirrhosis Thrombocytopenia Hypertension Hyperlipidemia Plan: Dyspnea secondary to large volume ascites-underlying nonalcoholic hepatic steatosis/cirrhosis -Chronic uncontrolled, on Lasix and spironolactone started by the PCP for last for few months. Dose decreased decreased 3 weeks ago as per the daughter to Lasix 40 mg/day and spironolactone 50 mg/day -General surgery orders placed for abdominal paracentesis. -Continue home medications including Lasix, spironolactone. -Discussed with the daughter and the patient about adjusting increasing diuretic therapy -please follow-up with his GI doctor outpatient. Thrombocytopenia -Chronic ,Secondary to cirrhosis, monitor daily, hold off on Lovenox/heparin. Platelet today is 64 -Continue to monitor for bleeding Diabetes mellitus type 2insulin-dependent -Chronic controlled, on metformin 1 g p.o. twice daily and Rybelsus 7 mg 1 tablet daily. Denies hypoglycemia. -Hypoglycemic precautions ACHS Accu-Chek, sliding scale insulin. A1c in the morning. Hypertension Chronic controlled on lisinopril 10 mg p.o. daily Toprol-XL 50 mg p.o. daily -Continue the current medication Hyperlipidemia -Chronic controlled on pravastatin 10 mg p.o. at bedtime continue home medications. DVT PPX: SCDs Code status: Full Discharge Plan: Home Plan to discharge in: 24 Hours - Advance Directives Does patient have a Living Will: No Does patient have a Durable POA for Healthcare: No - Code Status/Comfort Care Code Status Assessed: Yes (Full code) Critical Care: No Time Spent Managing Pts Care (In Minutes): 55 Discharge Plan: Home Plan to discharge in: 24 Hours - Code Status/Comfort Care Code Status Assessed: Yes Code Status: Full Code Physician Review: Patient Assessed, Agree with Above Assessment and Plan Critical Care: Yes Time Spent Managing PTS Care (In Minutes): 55 (Minutes) <Artie Washington - Last Filed: 03/20/23 13:28> - Plan Patient seen and examined on rounds after paracentesis feeling slightly better, distention improved, alleviated abd discomfort still with shortness of breath with ambulating in room BP ok removed nearly 9L and received albumin uncertain why lasix/juaquin were decreased 3 weeks ago, will discuss further with daughter may need to increase to prior dosing <Jason Cabezas - Last Filed: 03/20/23 21:33>
[2023-03-20] MEDS: ATORVASTATIN 10 MG TAB PO SCH (20:54)
[2023-03-21 02:41] VITALS: BMI 31.0
[2023-03-21 03:53] LABS: Absolute Lymphocytes (CBC) 0.6 K/uL (0.7-4.9); Hematocrit 29.8 % (39.6-49.0); Lymphocytes % 14.4 % (15.3-44.8); MCV 98.8 fL (80-100); MPV 8.8 fL (7.6-11.3); Platelets 72 thou/uL (152-406); RBC Red Blood Cell Count 3.02 M/uL (4.33-5.43)
[2023-03-21 04:07] LABS: Magnesium 1.6 mg/dL (1.6-2.4); Potassium 4.4 mEq/L (3.5-5.1)
[2023-03-21] MEDS ORDERED: NA CHLORIDE 0.9% 500 ML IV SCH (09:00)
--- NOTE | 2023-03-21 09:44 | P.PN ---
Subjective Date of Service: 03/21/23 Primary Care Provider: Jason Cabezas Chief Complaint: Ascites, dyspnea Subjective: Tolerating diet, Ambulating, Improving, C/O voiced (Diarrhea loose yellowish watery, no pain no abdominal cramping), Working w/ PT, Doing well <Artie Washington - Last Filed: 03/21/23 18:01> Date of Service: 03/21/23 <Jason Cabezas - Last Filed: 03/21/23 19:48> Review of Systems 10-point ROS is otherwise unremarkable General: Unremarkable Eyes: Unremarkable ENT: Unremarkable Respiratory: SOB with Excertion, Unremarkable Cardiovascular: Unremarkable Gastrointestinal: Diarrhea (15 times since midnight watery yellowish diarrhea, patient denies abdominal cramping or pain) Genitourinary: Unremarkable Integumentary: Unremarkable Neurological: Unremarkable <WashingtonArtie eckert - Last Filed: 03/21/23 18:01> Physical Examination - Vital Signs Temperature: 97.2 F Blood Pressure: 125/58 Pulse: 59 Respirations: 16 Pulse Ox (%): 97 <[place]Artie - Last Filed: 03/21/23 18:01> Assessment And Plan - Plan Assessment and plan Assessment Dyspnea on mild exertion due to enlarging ascites Nonalcoholic hepatic steatosis cirrhosis Thrombocytopenia Hypertension Hyperlipidemia Diarrhea Plan: Dyspnea secondary to large volume ascites-underlying nonalcoholic hepatic steatosis/cirrhosis -Chronic uncontrolled, on Lasix and spironolactone started by the PCP for last for few months. Dose decreased decreased 3 weeks ago as per the daughter to Lasix 40 mg/day and spironolactone 50 mg/day -General surgery orders placed for abdominal paracentesis. -Continue home medications including Lasix, spironolactone. -Discussed with the daughter and the patient about adjusting increasing diuretic therapy -please follow-up with his GI doctor outpatient. -GFR 72 Thrombocytopenia -Chronic ,Secondary to cirrhosis, monitor daily, hold off on Lovenox/heparin. Platelet today is 179 -Continue to monitor for bleeding Diabetes mellitus type 2insulin-dependent -Chronic controlled, on metformin 1 g p.o. twice daily and Rybelsus 7 mg 1 tablet daily. Denies hypoglycemia. -Hypoglycemic precautions ACHS Accu-Chek, sliding scale insulin. A1c in the morning. Hypertension Chronic controlled on lisinopril 10 mg p.o. daily Toprol-XL 50 mg p.o. daily -Continue the current medication Hyperlipidemia -Chronic controlled on pravastatin 10 mg p.o. at bedtime continue home medications. Diarrhea Acute, diarrhea x15 since midnight, patient reports watery diarrhea yellowish, denies abdominal pain or cramping Ordered C. difficile. Will consider antidiarrheal medications after C. difficile report comes back DVT PPX: SCDs Code status: Full Discharge Plan: Home Plan to discharge in: 24 Hours - Advance Directives Does patient have a Living Will: No Does patient have a Durable POA for Healthcare: No - Code Status/Comfort Care Code Status Assessed: Yes (Full code) Critical Care: No Time Spent Managing Pts Care (In Minutes): 55 Physician Review: Patient Assessed, Agree with Above Assessment and Plan <Artie Washington - Last Filed: 03/21/23 18:01> Physician Review: Patient Assessed, Agree with Above Assessment and Plan Time Spent Managing PTS Care (In Minutes): 40 <Jason Cabezas - Last Filed: 03/21/23 19:48>
[2023-03-21] MEDS: OXYBUTYNIN ER 5 MG TAB PO SCH (10:04)
[2023-03-21] MEDS: allopurinoL 300 MG TAB PO SCH (10:04)
[2023-03-21] MEDS: FUROSEMIDE 40 MG TABLET PO SCH (10:05)
[2023-03-21] MEDS: gemfibroziL 600 MG TAB PO SCH ×2 (10:05→20:48)
[2023-03-21] MEDS: BUPROPION HCL XL 150 MG TAB PO SCH (10:06)
[2023-03-21] MEDS: SPIRONOLACTONE 25 MG TABLET PO SCH (10:06)
[2023-03-21] MEDS: METFORMIN HCL 500 MG TAB PO SCH ×2 (10:06→20:48)
[2023-03-21] MEDS: PANTOPRAZOLE 40MG TABLET PO SCH (10:07)
[2023-03-21] MEDS: SEMAGLUTIDE 7 MG PO SCH (10:07)
[2023-03-21] MEDS: SERTRALINE HCL 100 MG TAB PO SCH (10:07)
[2023-03-21] MEDS: VITAMIN D 1000 UNIT TAB PO SCH (10:07)
[2023-03-21] MEDS: METOPROLOL XL 25 MG TAB PO SCH ×2 (10:07→20:49)
[2023-03-21] MEDS: lisinopriL 10 MG TAB PO SCH (10:20)
[2023-03-21 11:42] LABS: C.diff Antigen/Toxin Ag neg : Tox neg (NEG : NEG)
[2023-03-21] MEDS ORDERED: INFLUENZA VACCINE (for 6+ mo) 0.5 ML DOSE IMVAC ONE (16:00)
[2023-03-21] MEDS: LOPERAMIDE HCL 2 MG CAPSULE PO PRN ×2 (16:32→16:38)
[2023-03-21 19:27] VITALS: O2SAT 96
[2023-03-21] MEDS: ATORVASTATIN 10 MG TAB PO SCH (20:48)
[2023-03-22 03:44] LABS: Potassium 4.1 mEq/L (3.5-5.1)
[2023-03-22 03:45] LABS: Albumin 2.8 g/dL (3.4-5.0); Magnesium 1.3 mg/dL (1.6-2.4); Protein, Total 5.8 g/dL (6.4-8.2)
[2023-03-22] MEDS ORDERED: LOPERAMIDE HCL 2 MG CAPSULE PO STA (06:19)
[2023-03-22] MEDS ORDERED: LOPERAMIDE HCL 2 MG CAPSULE PO PRN (06:21)
[2023-03-22] MEDS: SPIRONOLACTONE 25 MG TABLET PO SCH (09:00)
[2023-03-22] MEDS: METOPROLOL XL 25 MG TAB PO SCH (09:00)
[2023-03-22] MEDS: FUROSEMIDE 40 MG TABLET PO SCH (09:00)
[2023-03-22] MEDS: lisinopriL 10 MG TAB PO SCH (09:00)
[2023-03-22] MEDS ORDERED: Magnesium Sulfate 2gm IVPB 2 G/50 ML BAG IV ONE (09:01)
[2023-03-22] MEDS: METFORMIN HCL 500 MG TAB PO SCH (09:03)
[2023-03-22] MEDS: BUPROPION HCL XL 150 MG TAB PO SCH (09:03)
[2023-03-22] MEDS: gemfibroziL 600 MG TAB PO SCH (09:04)
[2023-03-22] MEDS: VITAMIN D 1000 UNIT TAB PO SCH (09:04)
[2023-03-22] MEDS: allopurinoL 300 MG TAB PO SCH (09:04)
[2023-03-22] MEDS: SERTRALINE HCL 100 MG TAB PO SCH (09:04)
[2023-03-22] MEDS: OXYBUTYNIN ER 5 MG TAB PO SCH (09:04)
[2023-03-22] MEDS: SEMAGLUTIDE 7 MG PO SCH (09:05)
[2023-03-22] MEDS: PANTOPRAZOLE 40MG TABLET PO SCH (09:50)
--- NOTE | 2023-03-22 10:39 | P.PN ---
Subjective Date of Service: 03/22/23 Primary Care Provider: Jason Cabezas Chief Complaint: Ascites, dyspnea Subjective: No new changes, No C/O voiced, Tolerating diet, Ambulating, Improving, Doing well Review of Systems 10-point ROS is otherwise unremarkable General: Weakness Eyes: Unremarkable ENT: Unremarkable Respiratory: SOB with Excertion Cardiovascular: Unremarkable Gastrointestinal: Distention Genitourinary: Unremarkable Musculoskeletal: Atrophy Integumentary: Other Neurological: Unremarkable (Multiple echocardiogram otic sports on both upper and lower extremities) Physical Examination - Vital Signs Temperature: 97.7 F Blood Pressure: 98/50 Pulse: 65 Respirations: 16 Pulse Ox (%): 96 - Physical Exam General: Alert, In no apparent distress, Oriented x3, Cooperative HEENT: Atraumatic, Normocephalic, PERRLA Neck: Supple, 2+ carotid pulse no bruit, No LAD Respiratory: Clear to auscultation bilaterally, Normal air movement Cardiovascular: No edema, Normal pulses, Regular rate/rhythm, Normal S1 S2 Capillary refill: <2 Seconds Gastrointestinal: Normal bowel sounds, Hypoactive, Soft and benign, Distended, Ascites, Tenderness Musculoskeletal: No clubbing, No swelling, No contractures, No erythema, No tenderness Integumentary: No rashes, No breakdown, No significant lesion, No tenderness/swelling, No erythema, No warmth Neurological: Normal gait, Normal speech, Normal strength at 5/5 x4 extr, Normal tone, Sensation intact, Cranial nerves 3-12 intact, Normal reflexes 2+, Normal affect - Studies Microbiology Data (last 24 hrs): 03/20/23 09:40 Body Fluid - Peritoneal Fluid Gram Stain - Final 03/20/23 09:40 Body Fluid - Peritoneal Fluid Culture & Sensitivity - Final No growth. Assessment And Plan - Plan Assessment and plan Assessment Dyspnea on mild exertion due to enlarging ascites Nonalcoholic hepatic steatosis cirrhosis Thrombocytopenia Hypertension Hyperlipidemia Plan: Dyspnea secondary to large volume ascites-underlying nonalcoholic hepatic st eatosis/cirrhosis -Chronic controlled, on Lasix 40 mg/day and spironolactone 50 mg/day -Post abdominal paracentesis. -Continue home medications including Lasix, spironolactone. -GFR 56 today Thrombocytopenia -Chronic ,Secondary to cirrhosis, monitor daily, hold off on Lovenox/heparin. Platelet today is 179 -Continue to monitor for bleeding Diabetes mellitus type 2insulin-dependent -Chronic controlled, on metformin 1 g p.o. twice daily and Rybelsus 7 mg 1 tablet daily. Denies hypoglycemia. -Hypoglycemic precautions ACHS Accu-Chek, sliding scale insulin. Hypertension Chronic controlled on lisinopril 10 mg p.o. daily Toprol-XL 50 mg p.o. daily -Continue the current medication Hyperlipidemia -Chronic controlled on pravastatin 10 mg p.o. at bedtime continue home medications. DVT PPX: SCDs Code status: Full Discharge Plan: Home Plan to discharge in: 24 Hours - Advance Directives Does patient have a Living Will: No Does patient have a Durable POA for Healthcare: No - Code Status/Comfort Care Code Status Assessed: Yes (Full code) Critical Care: No Time Spent Managing Pts Care (In Minutes): 55 Discharge Plan: Home Plan to discharge in: 72 Hours - Code Status/Comfort Care Code Status Assessed: Yes Code Status: Full Code (Full code) Physician Review: Patient Assessed, Agree with Above Assessment and Plan Critical Care: No Time Spent Managing PTS Care (In Minutes): 55 (Minutes)
[2023-03-22] MEDS ORDERED: ALBUMIN HUM 5% 250 ML IV SCH (13:05)
[2023-03-22] MEDS ORDERED: NA CHLORIDE 0.9% 500 ML IV ONE (13:19)
--- NOTE | 2023-03-22 13:29 | P.DS ---
Admission Date: 03/21/23 Discharge Date: 03/22/23 Primary Care Provider: Jason Cabezas Disposition: ROUTINE DISCHARGE Discharge Condition: GOOD Reason for Admission: Ascites, dyspnea Brief History of Present Illness: 77yo M, PMH: nonalcoholic fatty liver/cirrhosis, insulin-dependent diabetes, hypertension, hyperlipidemia Patient presents to the emergency department with chief complaint of abdominal swelling, shortness of breath. He reports that approximate 3 weeks ago he was seen by his GI doctor who ordered abdominal ultrasound which showed a small amount of ascites, he has been taking his prescribed Lasix and spironolactone at home. He reports increasing abdominal swelling over the course of last 3 weeks now with large amount of ascites and shortness of breath. He was evaluated in the emergency department his labs are significant for platelet count of 84 INR 1.48 AST 47 ALT 28 alk phos 138 T. bili 0.9 T. bili 0.4 chest x-ray negative for acute findings CT abdomen pelvis showed large volume ascites, splenomegaly. Patient may need to be admitted for abdominal paracentesis given his symptomatic large volume ascites. This will be his first paracentesis. Hospital Course: Dyspnea secondary to large volume ascites, now s/p paracentesis (03/19) nonalcoholic hepatic steatosis/cirrhosis Thrombocytopenia IDDM2 Hypertension Hyperlipidemia Patient presented with abdominal swelling, shortness of breath. He was found to have large volume ascites seen on CT abdomen. Patient underwent paracentesis on 03/19; 8.8 liters of yellow fluid was removed. Patient had improvement of symptoms after paracentesis. Patients hospitalization was complicated by diarrhea following the procedure / albumin administration. C.difficile was negative. Diarrhea resolved after 1 dose of imodium. He remained afebrile, no leukocytosis, and was feeling much better. Deemed stable for discharge. Recommend follow up with PCP in ~1 week for repeat blood work and to further discuss if lasix/spironolactone need to be increased. Unsure if this was decreased ~3-4 weeks ago due to side effects / blood pressure / renal function. For now, continue at same dose, monitor blood pressure daily, and close follow up with PCP to review. Medications: Blood pressure during hospitalization was low to low-normal. Hold lisinopril. check blood pressure daily. Can restart lisinopril once blood pressure is consistently > 140 systolic. Continue other home medications as previously prescribed. over the counter imodium as needed. Follow up: PCP 3-5 days Physical Exam: GEN: Alert, oriented, NAD HEENT: Normal conjunctiva, sclera anicteric CV: Regular rate and rhythm, no edema Pulm: Nonlabored respirations on room air ABD: Soft, +ascites Neuro: Normal speech, normal affect Vital Signs/Physical Exam: Temp Pulse Resp BP Pulse Ox 97.7 F 65 16 98/50 L 96 03/22/23 10:41 03/22/23 10:41 03/22/23 10:41 03/22/23 10:41 03/22/23 10:41 Laboratory Data at Discharge: WBC 4.30 thou/uL (4.3-10.9) 03/21/23 03:19 Hgb 10.4 g/dL (13.6-17.9) L 03/21/23 03:19 Hct 29.8 % (39.6-49.0) L 03/21/23 03:19 Plt Count 72 thou/uL (152-406) L 03/21/23 03:19 PT 16.5 SECONDS (9.5-12.5) H 03/20/23 01:47 INR 1.50 03/20/23 01:47 APTT 34.7 SECONDS (24.3-36.9) 03/19/23 16:00 Sodium 137 mEq/L (136-145) 03/22/23 02:56 Potassium 4.1 mEq/L (3.5-5.1) 03/22/23 02:56 BUN 32 mg/dL (7-18) H 03/22/23 02:56 Creatinine 1.30 mg/dL (0.70-1.30) 03/22/23 02:56 Glucose 113 mg/dL (74-106) H 03/22/23 02:56 Magnesium 1.3 mg/dL (1.6-2.4) L 03/22/23 02:56 Total Bilirubin 1.0 mg/dL (0.2-1.0) 03/22/23 02:56 AST 29 U/L (15-37) 03/22/23 02:56 ALT 19 U/L (16-61) 03/22/23 02:56 Alkaline Phosphatase 77 U/L (45-117) 03/22/23 02:56 Home Medications: Albuterol Sulfate [Proair Hfa] 2 puff IH QID 03/20/23 Allopurinol 300 mg PO DAILY 03/20/23 Cholecalciferol (Vitamin D3) [Vitamin D3] 1,000 unit PO DAILY 03/20/23 Furosemide [Lasix] 40 mg PO DAILY 03/20/23 Insulin Glargine,Hum.rec.anlog [Lantus Solostar] 20 unit SQ BEDTIME 03/20/23 Lisinopril [Zestril] 10 mg PO DAILY 03/20/23 Metformin HCl 1,000 mg PO BID 03/20/23 Metoprolol Succinate [Toprol Xl] 50 mg PO BID 03/20/23 Oxybutynin Chloride [Oxybutynin Chloride ER] 5 mg PO DAILY 03/20/23 Pantoprazole Sodium [Protonix] 40 mg PO DAILY 03/20/23 Pravastatin [Pravachol*] 10 mg PO BEDTIME 03/20/23 Semaglutide [Rybelsus] 7 mg PO DAILY 03/20/23 Sertraline [Zoloft*] 100 mg PO DAILY 03/20/23 Spironolactone 50 mg PO DAILY 03/20/23 buPROPion HCL [Wellbutrin Xl] 300 mg PO DAILY 03/20/23 gemfibroziL [Gemfibrozil] 600 mg PO BID 03/20/23 Physician Discharge Instructions: Patient presented with abdominal swelling, shortness of breath. He was found to have large volume ascites seen on CT abdomen. Patient underwent paracentesis on 03/19; 8.8 liters of yellow fluid was removed. Patient had improvement of symptoms after paracentesis. Patients hospitalization was complicated by diarrhea following the procedure / albumin administration. C.difficile was negative. Diarrhea resolved after 1 dose of imodium. He remained afebrile, no leukocytosis, and was feeling much better. Deemed stable for discharge. Recommend follow up with PCP in ~1 week for repeat blood work and to further discuss if lasix/spironolactone need to be increased. Unsure if this was decreased ~3-4 weeks ago due to side effects / blood pressure / renal function. For now, continue at same dose, monitor blood pressure daily, and close follow up with PCP to review. Medications: Blood pressure during hospitalization was low to low-normal. Hold lisinopril. check blood pressure daily. Can restart lisinopril once blood pressure is consistently > 140 systolic. Continue other home medications as previously prescribed. over the counter imodium as needed. Follow up: PCP 3-5 days Followup: SOO VANN [Primary Care Provider] - Time spent managing pt's care (in minutes): 45
[2023-03-22] MEDS: LOPERAMIDE HCL 2 MG CAPSULE PO PRN (13:58)
[2023-03-22 14:33] VITALS: TEMP 97.9
[2023-03-22 14:57] VITALS: BP 113/58
[2023-03-26 07:48] LABS: GLUCOSE, PERITONEAL FLUID 138 mg/dL; TOTAL PROTEIN,PERITONEAL FLUID <3.0 g/dL
== END 2023-03-22 16:00 | disposition home or self-care (01) | DRG 433 ==
LOC: ER 15:29 → OBSVTOIN 18:24 → INTOOBSV 18:24 → ERHOLD 18:24 → 2ND 20:42 → OBSVTOIN 03-21 19:47
PROVIDERS: ADMIT Hospitalist; ATTEND Hospitalist
PROC: 0W9G3ZX Drainage of Peritoneal Cavity, Percutaneous Approach, Diagnostic (ICD-10-PCS; principal; 2023-03-19)
DX: K74.60 Unspecified cirrhosis of liver (principal); R18.8 Other ascites; K76.0 Fatty (change of) liver, not elsewhere classified; I10 Essential (primary) hypertension; E11.9 Type 2 diabetes mellitus without complications; D69.59 Other secondary thrombocytopenia; E78.5 Hyperlipidemia, unspecified; R19.7 Diarrhea, unspecified; Z60.2 Problems related to living alone; Z79.4 Long term (current) use of insulin; Z79.84 Long term (current) use of oral hypoglycemic drugs; Z90.49 Acquired absence of other specified parts of digestive tract; Z79.899 Other long term (current) drug therapy
CPT/HCPCS: 36415; 49083; 71045; 74177; 80048; 80053; 80076; 81003; 82042; 82945; 82947; 83615; 83735; 83880; 84157; 84484; 85025; 85610; 85730; 87070; 87324; 89050; 93005; 96374; 99284; G0378; J1940; J2405; J3475; J7040; P9047; Q9967

== ENCOUNTER 2023-04-16 20:54 | Emergency (ER) | payer OTHER ==
--- OUTSIDE RECORDS SUMMARY | 2023-04-16 21:00 | XMS REPORT | Continuity of Care Document ---
:1945 Author Organization [facility] t Address [address] [facility] [address] [place] [address] Care Team Providers Name Role Phone Celia Huynh MD Primary Care Physician Catarino Attending Clinician Unavailable Celia Huynh MD Attending Clinician JAINNE RUIZ Attending Clinician Unavailable Celia Huynh Attending Clinician Unavailable Catarino Admitting Clinician Unavailable JANINE RUIZ Admitting Clinician Unavailable Celia Huynh Admitting Clinician Unavailable Payers Payer Name Policy Type Policy Number Effective Date Expiration Date Cleve lugo [facility] [id number] [facility] [place] [place] [facility] [id number] [facility]) Problems Condition Condition Condition Status Onset Resolution Last Treating Co mments Source Name Details Category Date Date Treatment Clinician Date Chronic Chronic Problem Active 2022-06 [facility] kidney Kidney 0-26 Family disease Disease 00:00: Practic stage 3A Stage 3a 00 e Pancytopen Pancytopen Problem Active [facility] 01-19 Family 00:00: Practic 00 e Benign Benign Problem Active [facility] hypertensi Hypertensi 01-19 Fa leti ve heart ve Heart 00:00: Practi c disease Disease 00 e without without congestive Congestive heart Heart failure Failure Congestive Congestive Problem Active [facility] heart Heart 8-11 Family failure Failure 00:00: Practic 00 e [...] e 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 4-13 Family mellitus Mellitus 00:00: Practi c 00 e Hypertensi Hypertensi Problem Active [facility] ve heart ve Heart 4-13 Family disease Disease 00:00: Practic with with 00 e congestive Congestive heart Heart failure Failure 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 [facility] purpura Purpura 0-05 Family 00:00: Practic 00 e Edema of Edema of Problem Active [facility] [facility] lower Lower 9-07 Family extremity Extremity 00:00: Prac tic 00 e Diabetic Diabetic Problem Active [place] [facility] peripheral Peripheral 6-27 Fa leti neuropathy Neuropathy 00:00: Pr actic 00 e 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 00:00: Pr 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 Due to 00 e diabetes Diabetes mellitus Mellitus Mild Mild Problem Active [facility] intermitte Intermitte 5-13 Fa leti nt asthma nt Asthma 00:00: Prac tic 00 e Mixed Mixed Problem Active [facility]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 Hyperlipid 5-10 Fa leti emia emia 00:00: Practic 00 e Cirrhosis Cirrhosis Problem Active Adrianna jana of liver of Liver 5-10 Family 00:00: Practic 00 e Pain in Pain in Problem Active [facility] lower limb Lower Limb 5-10 Fa [...] Type II Type II Problem Active 2013-06 [facility] diabetes Diabetes -17 Family mellitus Mellitus 00:00: Practi c uncontroll Uncontroll 00 e ed ed Vitamin D Vitamin D Problem Active 2013-06 Adrianna bates deficiency Deficiency -17 Fa leti 00:00: Practic 00 e Hyperlipid Hyperlipid Problem Active 2013-06 [facility] emia emia 06-27 Family 00:00: Practic 00 e Gout Gout Problem Active 2013-06 [facility] 06-27 Family 00:00: Practic 00 e Disorder Disorder Problem Active 2013-06 Hesham bonner of of 06-27 Family hematopoie Hematopoie 00:00: Pr actic tic tic 00 e structure Structure Anxiety Anxiety Problem Active 2013-06 [facility] state State 06-27 Family 00:00: Practic 00 e Depressive Depressive Problem Active 2013-06 [facility] disorder Disorder 06-27 Family 00:00: Practic 00 e 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 [facility] neoplasm Neoplasm 06-27 Family of skin of Skin 00:00: Practic 00 e Asthma Asthma Problem Active 2013-06 [facility] without without 06-27 Family status Status 00:00: Practic asthmaticu Asthmaticu 00 e s s Insomnia Insomnia Problem Active 2013-06 Hesham ge 06-27 Family 00:00: Practic 00 e [...] 00 e Kidney Kidney Problem Active 2013-06 [facility] stone Stone 06-27 Family 00:00: Practic 00 e Corns and Corns and Problem Active 2013-06 Adrianna jana callus Callus 06-27 Family 00:00: Practic 00 e Osteoarthr Osteoarthr Problem Active 2013-06 [facility] itis itis 17 Family 00:00: Practic 00 e Low back Low Back Problem Active 2013-06 Hesham ge pain Pain 06-27 Family 00:00: Practic 00 e Dyspnea Dyspnea Problem Active 2013-06 [facility] 06-27 Family 00:00: Practic 00 e Proteinuri Proteinuri Problem Active 2013-06 V renetta holly a 06-27 Family 00:00: Practic 00 e Allergies, Adverse Reactions, Alerts This patient has no known allergies or adverse reactions. Family History Family Member Diagnosis Comments Start Date Stop Date Source Natural father [facility] Social History Social Habit Start Date Stop Date Quantity Comments Source History of tobacco Current sm[facility] History of Social 2022-01-18 2022-01-[address] function 00:00:00 00:00:00 Hospital Alcohol intake 2022-01-18 2022-01-18 Current drinker [facility] 00:00:00 00:00:00 of [facility] (finding) Tobacco Comment 2016-07-30 2016-07-30 pt smoke in [facility] t 00:00:00 00:00:[address] [place] [address] Alcohol Comment 2016-07-30 2016-07-30 2-[address] 00:00:00 00:00:00 [facility] Sex [birth year] [employer] 00:00:00 00:00:00 Hospital Smoking Status Start Date Stop Date Source Former Smoker [facility] lim Medications Ordered Filled Start Stop Current Ordering [...] suspension, 05 l extended rel recon gemfibrozil Yes 600mg Q.5D Take 600 M [facility] (LOPID) 600 8-[address] MG tablet 12:50: mouth 2 Hospi ta 05 (two) l times a day before meals. glipiZIDE 0 Yes 10mg QD Take 10 mg [facility] (GLUCOTROL) 8-[address] 10 MG 12:50: daily. Hospita tablet 05 l lisinopril 0 Yes 10mg QD Take 10 mg M [facility]i (PRINIVIL,Z 8-[address] ESTRIL) 10 12:50: every Hospit a mg tablet 05 evening. l meloxicam 0 Yes 7.5mg QD Take 7.5 [facility] (MOBIC) 7.5 8-[address] mg tablet 12:50: mouth Hospita 05 every l evening. multivitami 0 Yes 1{tbl} QD Take 1 [facility] n 8-[address] (THERAGRAN) 12:50: mouth Hospi ta tablet 05 daily. l pantoprazol 0 Yes 40mg QD Take 40 mg [facility] e 8-[address] (PROTONIX) 12:50: daily. Hospi ta 40 MG EC 05 l tablet potassium Yes 8meq QD Take 8 mEq [facility] chloride 8-[address] (MICRO-K) 8 12:50: every Hospi ta mEq CR 05 evening. l capsule pravastatin Yes 10mg QD Take 10 mg [facility] (PRAVACHOL) 8-[address] 10 MG 12:50: nightly. [...] day as needed for constipati on. furosemide 2022-0 Yes 20mg QD Take 20 mg M [facility] (LASIX) 20 8-[address] mg tablet 12:50: daily. Hospit a 05 l traMADol 2021-0 Yes 50mg Q6H Take 50 mg [facility] (ULTRAM) 50 8-[address] mg tablet 12:50: every 6 Hospi ta 05 (six) l hours as needed for moderate pain. sAXagliptin 2021-0 Yes 1{tbl} Q.5D Take 1 [facility] -metformin 8-[address] 2.5-1,000 12:50: mouth 2 Hospi ta mg tablet, 05 (two) l ER times a multiphase day. 24 hr allopurinol 2021-0 Yes 300mg QD Take 300 M [facility]i (ZYLOPRIM) 8-[address] 300 MG 12:50: mouth Hospita tablet 05 every l evening. cholecalcif 2021-0 Yes 2000U QD Take 2,000 [facility] tawnya, 8-[address] vitamin D3, 12:50: mouth Hospi ta (VITAMIN 05 every l D3) 2,000 evening. unit capsule capsule exenatide 0 Yes Inject Method i microsphere 01-[address] s 2 mg 12:50: skin. Hospita suspension, 05 l extended rel recon gemfibrozil 2021-0 Yes 600mg Q.5D Take 600 M [facility] (LOPID) 600 8-[address] MG tablet 12:50: mouth 2 Hospi ta 05 (two) l times a day before meals. glipiZIDE 2021-0 Yes 10mg QD Take 10 mg [facility] (GLUCOTROL) 8-[address] 10 MG 12:50: daily. Hospita tablet 05 l lisinopril 2021-0 Yes 10mg QD Take 10 mg M [facility]i (PRINIVIL,Z 8-[address] ESTRIL) 10 12:50: every Hospit a mg tablet 05 evening. l meloxicam 2021-0 Yes 7.5mg QD Take 7.5 [facility] (MOBIC) 7.5 8-[address] mg tablet 12:50: mouth Hospita 05 every l evening. multivitami 2021-0 Yes 1{tbl} QD Take 1 [facility] n 8-[address] (THERAGRAN) 12:50: mouth Hospi ta tablet 05 daily. l pantoprazol Yes 40mg QD Take 40 mg [facility] e 8-[address] (PROTONIX) 12:50: daily. Hospi ta 40 MG EC 05 l tablet potassium Yes 8meq QD Take 8 mEq [facility] chloride 8-[address] (MICRO-K) 8 12:50: every Hospi ta mEq CR 05 evening. l capsule pravastatin Yes 10mg QD Take 10 mg [facility] (PRAVACHOL) 8-[address] 10 MG 12:50: nightly. [...] needed for mcg/actuati wheezing. on inhaler docusate Yes 100mg Q.5D Take 100 Meth ana cristina sodium 8-[address] (COLACE) 12:50: mouth 2 Hospit a 100 MG 05 (two) l capsule times a day as needed for constipati on. furosemide Yes 20mg QD Take 20 mg [facility] (LASIX) [address] mg tablet 12:50: daily. Hospit a 05 l traMADol 0 Yes 50mg Q6H Take 50 mg [facility] (ULTRAM) 50 8-[address] mg tablet 12:50: every 6 Hospi ta 05 (six) l hours as needed for moderate pain. sAXagliptin 0 Yes 1{tbl} Q.5D Take 1 [facility] -metformin 8-[address] 2.5-1,000 12:50: mouth 2 Hospi ta mg tablet, 05 (two) l ER times a multiphase day. 24 hr allopurinol allopurinol No 1 Q1D allopurino [place] 300 mg 300 mg l 300 mg Family tablet Take tablet Take tablet Practic 1 tablet 1 tablet Take 1 e every day every day tablet by oral by oral every day route. route. by oral route. gemfibrozil gemfibrozil No 1 BID gemfibrozi [facility] 600 mg 600 mg l 600 [...] dinner. lisinopril lisinopril No 1 BID lisinopril [facility] 10 mg 10 mg 10 mg Family tablet Take tablet Take tablet Practic 1 tablet 1 tablet Take 1 e twice a day twice a day tablet by oral by oral twice a route. route. day by oral route. metformin metformin No 1 BID metformin [facility] 1,000 mg 1,000 mg 1,000 mg Fam rima tablet Take tablet Take tablet Practic 1 tablet 1 tablet Take 1 e twice a day twice a day tablet by oral by oral twice a route. route. day by oral route. oxybutynin oxybutynin No 1 Q1D oxybutynin [facility] chloride ER chloride ER chloride Family 5 mg 5 mg ER 5 mg Practic tablet,exte tablet,exte tablet,ext e nded nded ended release 24 release 24 release 24 hr Take 1 hr Take 1 hr Take 1 tablet tablet tablet every day every day every day by oral by oral by oral route. route. route. pravastatin pravastatin No 1 Q1D pravastati [facility] 10 mg 10 mg n 10 mg Family tablet Take tablet Take tablet Practic 1 tablet 1 tablet Take 1 e every day every day tablet by oral by oral every day route at route at by oral bedtime. bedtime. route at bedtime. ProAir HFA ProAir HFA No 2puff(s QID ProAir HFA [facility] 90 90 ) 90 Family mcg/actuati [...] Toprol XL No 1 BID Toprol XL [facility] 50 mg 50 mg 50 mg Family tablet,exte tablet,exte tablet,ext Practic nded nded ended e release release release Take 1 Take 1 Take 1 tablet tablet tablet twice a day twice a day twice a by oral by oral day by route. route. oral route. Vitamin D3 Vitamin D3 No 1capsul Q1D Vitamin D3 [facility] 25 mcg 25 mcg e(s) 25 mcg [facility] (1,000 (1,000 (1,000 Practic unit) unit) unit) [...] route. allopurinol allopurinol No 1 Q1D allopurino [facility] 300 mg 300 mg l 300 mg Family tablet Take tablet Take tablet Practic 1 tablet 1 tablet Take 1 e every day every day tablet by oral by oral every day route. route. by oral route. furosemide furosemide No 1 Q1D furosemide [facility] 20 mg 20 mg 20 mg Family tablet Take tablet Take tablet Practic 1 tablet 1 tablet Take 1 e every day every day tablet by oral by oral every day route. route. by oral route. furosemide furosemide No furosemide [facility] 40 mg 40 mg 40 mg Family tablet TAKE tablet TAKE tablet Practic 1 TABLET BY 1 TABLET BY TAKE 1 e MOUTH EVERY MOUTH EVERY TABLET BY DAY DAY MOUTH EVERY DAY gemfibrozil gemfibrozil No 1 BID gemfibrozi [facility] 600 mg 600 mg l 600 [...] dinner. lisinopril lisinopril No 1 Q1D lisinopril [facility] 10 mg 10 mg 10 mg Family tablet Take tablet Take tablet Practic 1 tablet 1 tablet Take 1 e every day every day tablet by oral by oral every day route. route. by oral route. metformin metformin No 1 BID metformin [facility] 1,000 mg 1,000 mg 1,000 mg Fam rima tablet Take tablet Take tablet Practic 1 tablet 1 tablet Take 1 e twice a day twice a day tablet by oral by oral twice a route. route. day by oral route. metoprolol metoprolol No metoprolol [place] succinate succinate succinate Family ER 50 mg ER 50 mg ER 50 mg Pra ctic tablet,exte tablet,exte tablet,ext e nded nded ended release 24 release 24 release 24 hr TAKE 1 hr TAKE 1 hr TAKE 1 TABLET BY TABLET BY TABLET BY MOUTH TWICE MOUTH TWICE MOUTH A DAY A DAY TWICE A DAY oxybutynin oxybutynin No 1 Q1D oxybutynin [facility] chloride ER chloride ER chloride Family 5 mg 5 mg ER 5 mg Practic tablet,exte tablet,exte tablet,ext e nded nded ended release 24 release 24 release 24 hr Take 1 hr Take 1 hr Take 1 tablet tablet tablet every day every day every day by oral by oral by oral route. route. route. pravastatin pravastatin No 1 Q1D pravastati [facility] 10 mg 10 mg n 10 mg Family tablet Take tablet Take tablet Practic 1 tablet 1 tablet Take 1 e every day every day tablet by oral by oral every day route at route at by oral bedtime. bedtime. route at bedtime. ProAir HFA ProAir HFA No 2puff(s QID ProAir HFA [facility] 90 90 ) 90 Family mcg/actuati mcg/actuati mcg/actuat Practic on aerosol on aerosol ion e inhaler inhaler aerosol Inhale 2 Inhale 2 inhaler puffs 4 puffs 4 Inhale 2 times a day times a day puffs 4 by by times a inhalation inhalation day by route. route. inhalation route. Protonix 40 Protonix 40 No 1 Q1D Protonix [facility] mg mg 40 mg Family tablet,renae [...] Vitamin D3 No 1capsul Q1D Vitamin D3 [facility] 25 mcg 25 mcg e(s) 25 mcg Family (1,000 (1,000 (1,000 Practic unit) unit) unit) e capsule capsule capsule Take 1 Take 1 Take 1 capsule capsule capsule every day every day every day by oral by oral by oral route. route. route. Wellbutrin Wellbutrin No 1 Q1D Wellbutrin [facility] XL 300 mg XL 300 mg [...] route. allopurinol allopurinol No 1 Q1D allopurino [facility] 300 mg 300 mg l 300 mg Family tablet Take tablet Take tablet Practic 1 tablet 1 tablet Take 1 e every day every day tablet by oral by oral every day route. route. by oral route. furosemide furosemide No 1 Q1D furosemide [facility] 20 mg 20 mg 20 mg Family tablet Take tablet Take tablet Practic 1 tablet 1 tablet Take 1 e every day every day tablet by oral by oral every day route. route. by oral route. gemfibrozil gemfibrozil No 1 BID gemfibrozi [facility] 600 mg 600 mg l 600 mg Family tablet Take tablet Take tablet Practic 1 tablet 1 tablet Take 1 e twice a day twice a day tablet by oral by oral twice a route. route. day by oral route. Lantus Lantus No 35unit( Q1D Lantus Clint e Saumya Kerns s) Brandiar Fam rima U-100 U-100 U-100 Practic Insulin [...] dinner. lisinopril lisinopril No 1 Q1D lisinopril [facility] 10 mg 10 mg 10 mg Family tablet Take tablet Take tablet Practic 1 tablet 1 tablet Take 1 e every day every day tablet by oral by oral every day route. route. by oral route. metformin metformin No 1 BID metformin [facility] 1,000 mg 1,000 mg 1,000 mg Fam rima tablet Take tablet Take tablet Practic 1 tablet 1 tablet Take 1 e twice a day twice a day tablet by oral by oral twice a route. route. day by oral route. metoprolol metoprolol metoprolol [facility] succinate succinate succinate Family ER 50 mg ER 50 mg ER 50 mg Pra ctic tablet,exte tablet,exte tablet,ext e nded nded ended release 24 release 24 release 24 hr TAKE 1 hr TAKE 1 hr TAKE 1 TABLET BY TABLET BY TABLET BY MOUTH TWICE MOUTH TWICE MOUTH A DAY A DAY TWICE A DAY oxybutynin oxybutynin No 1 Q1D oxybutynin [facility] chloride ER chloride ER chloride Family 5 mg 5 mg ER 5 mg Practic tablet,exte tablet,exte tablet,ext e nded nded ended release 24 release 24 release 24 hr Take 1 hr Take 1 hr Take 1 tablet tablet tablet every day every day every day by oral by oral by oral route. route. route. pravastatin pravastatin No 1 Q1D pravastati [facility] 10 mg 10 mg n 10 mg Family tablet Take tablet Take tablet Practic 1 tablet 1 tablet Take 1 e every day every day tablet by oral by oral every day route at route at by oral bedtime. bedtime. route at bedtime. ProAir HFA ProAir HFA No 2puff(s QID ProAir HFA [facility] 90 90 ) 90 Family mcg/actuati [...] Vitamin D3 No 1capsul Q1D Vitamin D3 [facility] 25 mcg 25 mcg e(s) 25 [...] route. allopurinol allopurinol No 1 Q1D allopurino [facility] 300 mg 300 mg l 300 mg Family tablet Take tablet Take tablet Practic 1 tablet 1 tablet Take 1 e every day every day tablet by oral by oral every day route. route. by oral route. furosemide furosemide No 1 Q1D furosemide [facility] 20 mg 20 mg 20 mg Family tablet Take tablet Take tablet Practic 1 tablet 1 tablet Take 1 e every day every day tablet by oral by oral every day route. route. by oral route. gemfibrozil gemfibrozil No 1 BID gemfibrozi [facility] 600 mg 600 mg l 600 [...] dinner. lisinopril lisinopril No 1 Q1D lisinopril [facility] 10 mg 10 mg 10 mg Family tablet Take tablet Take tablet Practic 1 tablet 1 tablet Take 1 e every day every day tablet by oral by oral every day route. route. by oral route. metformin metformin No 1 BID metformin [facility] 1,000 mg 1,000 mg 1,000 mg Fam rima tablet Take tablet Take tablet Practic 1 tablet 1 tablet Take 1 e twice a day twice a day tablet by oral by oral twice a route. route. day by oral route. metoprolol metoprolol metoprolol [facility] succinate succinate succinate [facility] ER 50 mg ER 50 mg ER 50 mg Pra ctic tablet,exte tablet,exte tablet,ext e nded nded ended release 24 release 24 release 24 hr TAKE 1 hr TAKE 1 hr TAKE 1 TABLET BY TABLET BY TABLET BY MOUTH TWICE MOUTH TWICE MOUTH A DAY A DAY TWICE A DAY oxybutynin oxybutynin No 1 Q1D oxybutynin [facility] chloride ER chloride ER chloride [facility] 5 mg 5 mg ER 5 mg Practic tablet,exte tablet,exte tablet,ext e nded nded ended release 24 release 24 release 24 hr Take 1 hr Take 1 hr Take 1 tablet tablet tablet every day every day every day by oral by oral by oral route. route. route. pravastatin pravastatin No 1 Q1D pravastati [facility] 10 mg 10 mg n 10 mg Family tablet Take tablet Take tablet Practic 1 tablet 1 tablet Take 1 e every day every day tablet by oral by oral every day route at route at by oral bedtime. bedtime. route at bedtime. ProAir HFA ProAir HFA No 2puff(s QID ProAir HFA [facility] 90 90 ) 90 Family mcg/actuati [...] Vitamin D3 No 1capsul Q1D Vitamin D3 [facility] 25 mcg 25 mcg e(s) 25 mcg [facility] (1,000 (1,000 (1,000 Practic unit) unit) unit) e capsule capsule capsule Take 1 Take 1 Take 1 capsule capsule capsule every day every day every day by oral by oral by oral route. route. route. Wellbutrin Wellbutrin No 1 Q1D Wellbutrin [facility] XL 300 mg XL 300 mg XL 300 mg Family 24 hr 24 hr 24 hr Practic tablet, tablet, tablet, e extended extended extended release release release Take 1 Take 1 Take 1 tablet tablet tablet every day every day every day by oral by oral by oral route. route. route. Zoloft 100 Zoloft 100 No 1 Q1D Zoloft 100 [facility] mg tablet mg tablet mg tablet Family Take 1 Take 1 Take 1 Practic tablet tablet tablet e every day every day every day by oral by oral by oral route. route. route. allopurinol allopurinol No 1 Q1D allopurino [facility] 300 mg 300 mg l 300 mg Family tablet Take tablet Take tablet Practic 1 tablet 1 tablet Take 1 e every day every day tablet by oral by oral every day route. route. by oral route. furosemide furosemide No 1 Q1D furosemide [facility] 20 mg 20 mg 20 mg Family tablet Take tablet Take tablet Practic 1 tablet 1 tablet Take 1 e every day every day tablet by oral by oral every day route. route. by oral route. gemfibrozil gemfibrozil No 1 BID gemfibrozi [facility] 600 mg 600 mg l 600 [...] dinner. lisinopril lisinopril No 1 Q1D lisinopril [facility] 10 mg 10 mg 10 mg Family tablet Take tablet Take tablet Practic 1 tablet 1 tablet Take 1 e every day every day tablet by oral by oral every day route. route. by oral route. metformin metformin No 1 BID metformin [facility] 1,000 mg 1,000 mg 1,000 mg Fam rima tablet Take tablet Take tablet Practic 1 tablet 1 tablet Take 1 e twice a day twice a day tablet by oral by oral twice a route. route. day by oral route. metoprolol metoprolol No metoprolol [facility] succinate succinate succinate Family ER 50 mg ER 50 mg ER 50 mg Pra ctic tablet,exte tablet,exte tablet,ext e nded nded ended release 24 release 24 release 24 hr TAKE 1 hr TAKE 1 hr TAKE 1 TABLET BY TABLET BY TABLET BY MOUTH TWICE MOUTH TWICE MOUTH A DAY A DAY TWICE A DAY oxybutynin oxybutynin No 1 Q1D oxybutynin [facility] chloride ER chloride ER chloride Family 5 mg 5 mg ER 5 mg Practic tablet,exte tablet,exte tablet,ext e nded nded ended release 24 release 24 release 24 hr Take 1 hr Take 1 hr Take 1 tablet tablet tablet every day every day every day by oral by oral by oral route. route. route. pravastatin pravastatin No 1 Q1D pravastati [facility] 10 mg 10 mg n 10 mg Family tablet Take tablet Take tablet Practic 1 tablet 1 tablet Take 1 e every day every day tablet by oral by oral every day route at route at by oral bedtime. bedtime. route at bedtime. Prescriptio Prescriptio No Prescripti [place] n - Prior n - Prior on [...] oral route. route. route. spironolact spironolact spironolac [place] one 50 mg one 50 mg tone 50 mg Family tablet TAKE tablet TAKE tablet Practic 1 TABLET 1 TABLET TAKE 1 e EVERY DAY EVERY DAY TABLET BY ORAL BY ORAL EVERY DAY ROUTE IN ROUTE IN BY ORAL THE THE ROUTE IN MORNING. MORNING. THE MORNING. Vitamin D3 Vitamin D3 No 1capsul Q1D Vitamin D3 [facility] 25 mcg 25 mcg e(s) 25 mcg [facility] (1,000 (1,000 (1,000 Practic unit) unit) unit) e capsule capsule capsule Take 1 Take 1 Take 1 capsule capsule capsule every day every day every day by oral by oral by oral route. route. route. Wellbutrin Wellbutrin No 1 Q1D Wellbutrin [facility] XL 300 mg XL 300 mg [...] route. allopurinol allopurinol No 1 Q1D allopurino [facility] 300 mg 300 mg l 300 mg Family tablet Take tablet Take tablet Practic 1 tablet 1 tablet Take 1 e every day every day tablet by oral by oral every day route. route. by oral route. furosemide furosemide No 1 Q1D furosemide [facility] 20 mg 20 mg 20 mg Family tablet Take tablet Take tablet Practic 1 tablet 1 tablet Take 1 e every day every day tablet by oral by oral every day route. route. by oral route. gemfibrozil gemfibrozil No 1 BID gemfibrozi [facility] 600 mg 600 mg l 600 [...] dinner. lisinopril lisinopril No 1 Q1D lisinopril [facility] 10 mg 10 mg 10 mg Family tablet Take tablet Take tablet Practic 1 tablet 1 tablet Take 1 e every day every day tablet by oral by oral every day route. route. by oral route. metformin metformin No 1 BID metformin [facility] 1,000 mg 1,000 mg 1,000 mg Fam rima tablet Take tablet Take tablet Practic 1 tablet 1 tablet Take 1 e twice a day twice a day tablet by oral by oral twice a route. route. day by oral route. metoprolol metoprolol No metoprolol [facility] succinate succinate succinate Family ER 50 mg ER 50 mg ER 50 mg Pra ctic tablet,exte tablet,exte tablet,ext e nded nded ended release 24 release 24 release 24 hr TAKE 1 hr TAKE 1 hr TAKE 1 TABLET BY TABLET BY TABLET BY MOUTH TWICE MOUTH TWICE MOUTH A DAY A DAY TWICE A DAY oxybutynin oxybutynin No 1 Q1D oxybutynin [facility] chloride ER chloride ER chloride Family 5 mg 5 mg ER 5 mg Practic tablet,exte tablet,exte tablet,ext e nded nded ended release 24 release 24 release 24 hr Take 1 hr Take 1 hr Take 1 tablet tablet tablet every day every day every day by oral by oral by oral route. route. route. pravastatin pravastatin No 1 Q1D pravastati [facility] 10 mg 10 mg n 10 mg Family tablet Take tablet Take tablet Practic 1 tablet 1 tablet Take 1 e every day every day tablet by oral by oral every day route at route at by oral bedtime. bedtime. route at bedtime. Prescriptio Prescriptio No Prescripti [facility] n - Prior n - Prior on - Prior Family Authorizati Authorizati Authorizat Practic on Request on Request ion e Request ProAir HFA ProAir HFA No 2puff(s QID ProAir HFA [facility] 90 ) 90 Family mcg/actuati mcg/actuati mcg/actuat Practic on aerosol on aerosol ion e inhaler inhaler aerosol Inhale 2 Inhale 2 inhaler puffs 4 puffs 4 Inhale 2 times a day times a day puffs 4 by by times a inhalation inhalation day by route. route. inhalation route. Protonix 40 Protonix 40 No 1 Q1D Protonix [facility] mg mg 40 mg Family tablet,renae [...] Vitamin D3 No 1capsul Q1D Vitamin D3 [facility] 25 mcg 25 mcg e(s) 25 mcg Family (1,000 (1,000 (1,000 Practic unit) unit) unit) e capsule capsule capsule Take 1 Take 1 Take 1 capsule capsule capsule every day every day every day by oral by oral by oral route. route. route. Wellbutrin Wellbutrin No 1 Q1D Wellbutrin [facility] XL 300 mg XL 300 mg [...] route. allopurinol allopurinol No 1 Q1D allopurino [facility] 300 mg 300 mg l 300 mg Family tablet Take tablet Take tablet Practic 1 tablet 1 tablet Take 1 e every day every day tablet by oral by oral every day route. route. by oral route. furosemide furosemide No 1 Q1D furosemide [facility] 20 mg 20 mg 20 mg Family tablet Take tablet Take tablet Practic 1 tablet 1 tablet Take 1 e every day every day tablet by oral by oral every day route. route. by oral route. gemfibrozil gemfibrozil No 1 BID gemfibrozi [facility] 600 mg 600 mg l 600 [...] dinner. lisinopril lisinopril No 1 Q1D lisinopril [facility] 10 mg 10 mg 10 mg Family tablet Take tablet Take tablet Practic 1 tablet 1 tablet Take 1 e every day every day tablet by oral by oral every day route. route. by oral route. metformin metformin No 1 BID metformin [facility] 1,000 mg 1,000 mg 1,000 mg Fam rima tablet Take tablet Take tablet Practic 1 tablet 1 tablet Take 1 e twice a day twice a day tablet by oral by oral twice a route. route. day by oral route. oxybutynin oxybutynin No 1 Q1D oxybutynin [facility] chloride ER chloride ER chloride Family 5 mg 5 mg ER 5 mg Practic tablet,exte tablet,exte tablet,ext e nded nded ended release 24 release 24 release 24 hr Take 1 hr Take 1 hr Take 1 tablet tablet tablet every day every day every day by oral by oral by oral route. route. route. pravastatin pravastatin No 1 Q1D pravastati [facility] 10 mg 10 mg n 10 mg Family tablet Take tablet Take tablet Practic 1 tablet 1 tablet Take 1 e every day every day tablet by oral by oral every day route at route at by oral bedtime. bedtime. route at bedtime. Prescriptio Prescriptio No Prescripti [facility] n - Prior n - Prior on - Prior Family Authorizati Authorizati Authorizat Practic on Request on Request ion e Request ProAir HFA ProAir HFA No 2puff(s QID ProAir HFA [facility] 90 90 ) 90 Family mcg/actuati mcg/actuati mcg/actuat Practic on aerosol on aerosol ion e inhaler inhaler aerosol Inhale 2 Inhale 2 inhaler puffs 4 puffs 4 Inhale 2 times a day times a day puffs 4 by by times a inhalation inhalation day by route. route. inhalation route. Protonix 40 Protonix 40 No 1 Q1D Protonix [facility] mg mg 40 mg Family tablet,renae [...] Toprol XL No 1 BID Toprol XL [facility] 50 mg 50 mg 50 mg Family tablet,exte tablet,exte tablet,ext Practic nded nded ended e release release release Take 1 Take 1 Take 1 tablet tablet tablet twice a day twice a day twice a by oral by oral day by route. route. oral route. Vitamin D3 Vitamin D3 No 1capsul Q1D Vitamin D3 [facility] 25 mcg 25 mcg e(s) 25 mcg [facility] (1,000 (1,000 (1,000 Practic unit) unit) unit) e capsule capsule capsule Take 1 Take 1 Take 1 capsule capsule capsule every day every day every day by oral by oral by oral route. route. route. Wellbutrin Wellbutrin No 1 Q1D Wellbutrin [facility] XL 300 mg XL 300 mg [...] route. allopurinol allopurinol No 1 Q1D allopurino [facility] 300 mg 300 mg l 300 mg Family tablet Take tablet Take tablet Practic 1 tablet 1 tablet Take 1 e every day every day tablet by oral by oral every day route. route. by oral route. gemfibrozil gemfibrozil No 1 BID gemfibrozi [facility] 600 mg 600 mg l 600 [...] 40 mg No 1 Q1D Lasix 40 [facility] tablet Take tablet Take mg tablet Family 1 tablet 1 tablet Take 1 Pract ic every day every day tablet e by oral by oral every day route. route. by oral route. lisinopril lisinopril No 1 Q1D lisinopril [facility] 10 mg 10 mg 10 mg Family tablet Take tablet Take tablet Practic 1 tablet 1 tablet Take 1 e every day every day tablet by oral by oral every day route. route. by oral route. metformin metformin No 1 BID metformin [facility] 1,000 mg 1,000 mg 1,000 mg Fam rima tablet Take tablet Take tablet Pract[facility] 1 tablet 1 tablet Take 1 e twice a day twice a day tablet by oral by oral twice a route. route. day by oral route. oxybutynin oxybutynin No 1 Q1D oxybutynin [facility] chloride ER chloride ER chloride [facility] 5 mg 5 mg ER 5 mg Practic tablet,exte tablet,exte tablet,ext e nded nded ended release 24 release 24 release 24 hr Take 1 hr Take 1 hr Take 1 tablet tablet tablet every day every day every day by oral by oral by oral route. route. route. pravastatin pravastatin No 1 Q1D pravastati [facility] 10 mg 10 mg n 10 mg Family tablet Take tablet Take tablet Practic 1 tablet 1 tablet Take 1 e every day every day tablet by oral by oral every day route at route at by oral bedtime. bedtime. route at bedtime. ProAir HFA ProAir HFA No 2puff(s QID ProAir HFA [facility] 90 90 ) 90 Family mcg/actuati [...] Protonix [place] mg mg 40 mg Family tablet,reane tablet,renae tablet,del Practic yed release yed release [...] Toprol XL No 1 BID Toprol XL [facility] 50 mg 50 mg 50 mg Family tablet,exte tablet,exte tablet,ext Practic nded nded ended e release release release Take 1 Take 1 Take 1 tablet tablet tablet twice a day twice a day twice a by oral by oral day by route. route. oral route. Vitamin D3 Vitamin D3 No 1capsul Q1D Vitamin D3 [facility] 25 mcg 25 mcg e(s) 25 mcg [facility] (1,000 (1,000 (1,000 Practic unit) unit) unit) e capsule capsule capsule Take 1 Take 1 Take 1 capsule capsule capsule every day every day every day by oral by oral by oral route. route. route. Wellbutrin Wellbutrin No 1 Q1D Wellbutrin [facility] XL 300 mg XL 300 mg XL 300 mg Family 24 hr 24 hr 24 hr Practic tablet, tablet, tablet, e extended extended extended release release release Take 1 Take 1 Take 1 tablet tablet tablet every day every day every day by oral by oral by oral route. route. route. Zoloft 100 Zoloft 100 No 1 Q1D Zoloft 100 [facility] mg tablet mg tablet mg tablet Family Take 1 Take 1 Take 1 Practic tablet tablet tablet e every day every day every day by oral by oral by oral route. route. route. allopurinol allopurinol No 1 Q1D allopurino [facility] 300 mg 300 mg l 300 mg Family tablet Take tablet Take tablet Pract[facility] 1 tablet 1 tablet Take 1 e every day every day tablet by oral by oral every day route. route. by oral route. gemfibrozil gemfibrozil No 1 BID gemfibrozi [facility] 600 mg 600 mg l 600 [...] 40 mg No 1 Q1D Lasix 40 [facility] tablet Take tablet Take mg tablet Family 1 tablet 1 tablet Take 1 Pract ic every day every day tablet e by oral by oral every day route. route. by oral route. lisinopril lisinopril No 1 Q1D lisinopril [facility] 10 mg 10 mg 10 mg Family tablet Take tablet Take tablet Practic 1 tablet 1 tablet Take 1 e every day every day tablet by oral by oral every day route as route as by oral directed. directed. route as directed. metformin metformin No 1 BID metformin [facility] 1,000 mg 1,000 mg 1,000 mg Fam rima tablet Take tablet Take tablet Pract[facility] 1 tablet 1 tablet Take 1 e twice a day twice a day tablet by oral by oral twice a route. route. day by oral route. oxybutynin oxybutynin No 1 Q1D oxybutynin [facility] chloride ER chloride ER chloride [facility] 5 mg 5 mg ER 5 mg Practic tablet,exte tablet,exte tablet,ext e nded nded ended release 24 release 24 release 24 hr Take 1 hr Take 1 hr Take 1 tablet tablet tablet every day every day every day by oral by oral by oral route. route. route. pravastatin pravastatin No 1 Q1D pravastati [facility] 10 mg 10 mg n 10 [...] route. spironolact spironolact No 1 Q1D spironolac [facility] one 50 mg one 50 mg tone 50 mg Family tablet Take tablet Take tablet Pract[facility] 1 tablet 1 tablet Take 1 e every day every day tablet by oral by oral every day route in route in by oral the the route in morning. morning. the morning. Toprol XL Toprol XL No 1 BID Toprol XL [facility] 50 mg 50 mg 50 mg Family tablet,exte tablet,exte tablet,ext Practic nded nded ended e release release release Take 1 Take 1 Take 1 tablet tablet tablet twice a day twice a day twice a by oral by oral day by route. route. oral route. Vitamin D3 Vitamin D3 No 1capsul Q1D Vitamin D3 [facility] 25 mcg 25 mcg e(s) 25 [...] route. allopurinol allopurinol No 1 Q1D allopurino [facility] 300 mg 300 mg l 300 mg Family tablet Take tablet Take tablet Practic 1 tablet 1 tablet Take 1 e every day every day tablet by oral by oral every day route. route. by oral route. gemfibrozil gemfibrozil No 1 BID gemfibrozi [facility] 600 mg 600 mg l 600 [...] route. lisinopril lisinopril No 1 Q1D lisinopril [facility] 10 mg 10 mg 10 mg Family tablet Take tablet Take tablet Pract[facility] 1 tablet 1 tablet Take 1 e every day every day tablet by oral by oral every day route as route as by oral directed. directed. route as directed. metformin metformin No 1 BID metformin [facility] 1,000 mg 1,000 mg 1,000 mg Fam rima tablet Take tablet Take tablet Pract[facility] 1 tablet 1 tablet Take 1 e twice a day twice a day tablet by oral by oral twice a route. route. day by oral route. oxybutynin oxybutynin No 1 Q1D oxybutynin [facility] chloride ER chloride ER chloride [facility] 5 mg 5 mg ER 5 mg Practic tablet,exte tablet,exte tablet,ext e nded nded ended release 24 release 24 release 24 hr Take 1 hr Take 1 hr Take 1 tablet tablet tablet every day every day every day by oral by oral by oral route. route. route. pravastatin pravastatin No 1 Q1D pravastati [facility] 10 mg 10 mg n 10 mg Family tablet Take tablet Take tablet Pract[facility] 1 tablet 1 tablet Take 1 e every day every day tablet by oral by oral every day route at route at by oral bedtime. bedtime. route at bedtime. ProAir HFA ProAir HFA No 2puff(s QID ProAir HFA [facility] 90 90 ) 90 Family mcg/actuati mcg/actuati mcg/actuat Practic on aerosol on aerosol ion e inhaler inhaler aerosol Inhale 2 Inhale 2 inhaler puffs 4 puffs 4 Inhale 2 times a day times a day puffs 4 by by times a inhalation inhalation day by route. route. inhalation route. Protonix 40 Protonix 40 No 1 Q1D Protonix [facility] mg mg 40 mg Family tablet,renae [...] route. spironolact spironolact No 1 Q1D spironolac [facility] one 50 mg one 50 mg tone 50 mg Family tablet Take tablet Take tablet Pract[facility] 1 tablet 1 tablet Take 1 e every day every day tablet by oral by oral every day route in route in by oral the the route in morning. morning. the morning. Toprol XL Toprol XL No 1 BID Toprol XL [facility] 50 mg 50 mg 50 mg Family tablet,exte tablet,exte tablet,ext Practic nded nded ended e release release release Take 1 Take 1 Take 1 tablet tablet tablet twice a day twice a day twice a by oral by oral day by route. route. oral route. Vitamin D3 Vitamin D3 No 1capsul Q1D Vitamin D3 [facility] 25 mcg 25 mcg e(s) 25 mcg [facility] (1,000 (1,000 (1,000 Practic unit) unit) unit) e capsule capsule capsule Take 1 Take 1 Take 1 capsule capsule capsule every day every day every day by oral by oral by oral route. route. route. Wellbutrin Wellbutrin No 1 Q1D Wellbutrin [facility] XL 300 mg XL 300 mg XL 300 mg Family 24 hr 24 hr 24 hr Practic tablet, tablet, tablet, e extended extended extended release release release Take 1 Take 1 Take 1 tablet tablet tablet every day every day every day by oral by oral by oral route. route. route. Zoloft 100 Zoloft 100 No 1 Q1D Zoloft 100 [facility] mg tablet mg tablet mg tablet Family Take 1 Take 1 Take 1 Practic tablet tablet tablet e every day every day every day by oral by oral by oral route. route. route. Immunizations Ordered Immunization Filled Immunization Date Status Commen ts Source Name Name influenza, influenza, 2022-03-16 Completed [facility] high-dose, high-dose, 00:34:46 [facility] quadrivalent quadrivalent Practice influenza, influenza, 2022-03-16 Completed [facility] high-dose, high-dose, 00:34:46 [facility] quadrivalent quadrivalent Practice influenza, influenza, 2022-03-16 Completed [facility] high-dose, high-dose, 00:34:46 [facility] quadrivalent quadrivalent Practice influenza, influenza, 2022-03-16 Completed [facility] high-dose, high-dose, 00:34:46 [facility] quadrivalent quadrivalent Practice influenza, influenza, 2022-03-16 Completed [facility] high-dose, high-dose, 00:34:46 [facility] quadrivalent quadrivalent Practice influenza, influenza, 2022-03-16 Completed [facility] high-dose, high-dose, 00:34:46 [facility] quadrivalent quadrivalent Practice Influenza vaccine, Influenza vaccine, 2021-03-09 Completed [facility] quadrivalent, quadrivalent, 00:00:00 [facility] adjuvanted adjuvanted Practice Influenza vaccine, Influenza vaccine, 2021-03-09 Completed [facility] quadrivalent, quadrivalent, 00:00:00 [facility] adjuvanted adjuvanted Practice Influenza vaccine, Influenza vaccine, 2021-03-09 Completed [facility] quadrivalent, quadrivalent, 00:00:00 [facility] adjuvanted adjuvanted Practice Influenza vaccine, Influenza vaccine, 2021-03-09 Completed [facility] quadrivalent, quadrivalent, 00:00:00 Family adjuvanted adjuvanted Practice Influenza vaccine, Influenza vaccine, 2021-03-09 Completed [facility] quadrivalent, quadrivalent, 00:00:00 Family adjuvanted adjuvanted Practice Influenza vaccine, Influenza vaccine, 2021-03-09 Completed [facility] quadrivalent, quadrivalent, 00:00:00 Family adjuvanted adjuvanted Practice Influenza vaccine, Influenza vaccine, 2021-03-09 Completed [facility] quadrivalent, quadrivalent, 00:00:00 Family adjuvanted adjuvanted Practice Influenza vaccine, Influenza vaccine, 2021-03-09 Completed [facility] quadrivalent, quadrivalent, 00:00:00 Family adjuvanted adjuvanted Practice COVID-19, mRNA, COVID-19, mRNA, 2020-11-05 Completed [facility] LNP-S, PF, 100 LNP-S, PF, 100 00:00:00 Family mcg/0.5 mL dose mcg/0.5 mL dose Prac yoshi (Moderna) (Moderna) COVID-19, mRNA, COVID-19, mRNA, 2020-11-05 Completed [facility] LNP-S, PF, 100 LNP-S, PF, 100 00:00:00 Family mcg/0.5 mL dose mcg/0.5 mL dose Prac yoshi (Moderna) (Moderna) COVID-19, mRNA, COVID-19, mRNA, 2020-11-05 Completed [facility] LNP-S, PF, 100 LNP-S, PF, 100 00:00:00 Family mcg/0.5 mL dose mcg/0.5 mL dose Prac yoshi (Moderna) (Moderna) COVID-19, mRNA, COVID-19, mRNA, 2020-11-05 Completed [facility] LNP-S, PF, 100 LNP-S, PF, 100 00:00:00 Family mcg/0.5 mL dose mcg/0.5 mL dose Prac yoshi (Moderna) (Moderna) COVID-19, mRNA, COVID-19, mRNA, 2020-11-05 Completed [facility] LNP-S, PF, 100 LNP-S, PF, 100 00:00:00 Family mcg/0.5 mL dose mcg/0.5 mL dose Prac yoshi (Moderna) (Moderna) COVID-19, mRNA, COVID-19, mRNA, 2020-11-05 Completed [facility] LNP-S, PF, 100 LNP-S, PF, 100 00:00:00 Family mcg/0.5 mL dose mcg/0.5 mL dose Prac yoshi (Moderna) (Moderna) COVID-19, mRNA, COVID-19, mRNA, 2020-11-05 Completed [facility] LNP-S, PF, 100 LNP-S, PF, 100 00:00:00 Family mcg/0.5 mL dose mcg/0.5 mL dose Prac yoshi (Moderna) (Moderna) COVID-19, mRNA, COVID-19, mRNA, 2020-11-05 Completed [facility] LNP-S, PF, 100 LNP-S, PF, 100 00:00:00 Family mcg/0.5 mL dose mcg/0.5 mL dose Prac yoshi (Moderna) (Moderna) influenza, influenza, 2020-06-10 Completed [facility] trivalent, trivalent, 00:00:00 Family adjuvanted adjuvanted Practice influenza, influenza, 2020-06-10 Completed [facility] trivalent, trivalent, 00:00:00 Family adjuvanted adjuvanted Practice influenza, influenza, 2020-06-10 Completed [facility] trivalent, trivalent, 00:00:00 Family adjuvanted adjuvanted Practice influenza, influenza, 2020-06-10 Completed [facility] trivalent, trivalent, 00:00:00 Family adjuvanted adjuvanted Practice influenza, influenza, 2020-06-10 Completed [facility] trivalent, trivalent, 00:00:00 Family adjuvanted adjuvanted Practice influenza, influenza, 2020-06-10 Completed [facility] trivalent, trivalent, 00:00:00 Family adjuvanted adjuvanted Practice influenza, influenza, 2020-06-10 Completed [facility] trivalent, trivalent, 00:00:00 Family adjuvanted adjuvanted Practice influenza, influenza, 2020-06-10 Completed [facility] trivalent, trivalent, 00:00:00 Family adjuvanted adjuvanted Practice influenza, influenza, 2019-04-24 Completed [facility] trivalent, trivalent, 00:00:00 Family adjuvanted adjuvanted Practice influenza, influenza, 2019-04-24 Completed [facility] trivalent, trivalent, 00:00:00 Family adjuvanted adjuvanted Practice influenza, influenza, 2019-04-24 Completed [facility] trivalent, trivalent, 00:00:00 Family adjuvanted adjuvanted Practice influenza, influenza, 2019-04-24 Completed [facility] trivalent, trivalent, 00:00:00 Family adjuvanted adjuvanted Practice influenza, influenza, 2019-04-24 Completed [facility] trivalent, trivalent, 00:00:00 Family adjuvanted adjuvanted Practice influenza, influenza, 2019-04-24 Completed [facility] trivalent, trivalent, 00:00:00 Family adjuvanted adjuvanted Practice influenza, influenza, 2019-04-24 Completed [facility] trivalent, trivalent, 00:00:00 Family adjuvanted adjuvanted Practice influenza, influenza, 2019-04-24 Completed [facility] trivalent, trivalent, 00:00:00 Family adjuvanted adjuvanted Practice influenza, high dose influenza, high dose 2018-04-17 Completed [facility] seasonal seasonal 00:00:00 Family Practice pneumococcal pneumococcal 2018-04-17 Completed [facility] polysaccharide PPV23 polysaccharide PPV23 00:00:00 Family Practice influenza, high dose influenza, high dose 2018-04-17 Completed [facility] seasonal seasonal 00:00:00 Family Practice pneumococcal pneumococcal 2018-04-17 Completed [facility] polysaccharide PPV23 polysaccharide PPV23 00:00:00 Family Practice influenza, high dose influenza, high dose 2018-04-17 Completed [facility] seasonal seasonal 00:00:00 Family Practice pneumococcal pneumococcal 2018-04-17 Completed [facility] polysaccharide PPV23 polysaccharide PPV23 00:00:00 Family Practice influenza, high dose influenza, high dose 2018-04-17 Completed [facility] seasonal seasonal 00:00:00 Family Practice pneumococcal pneumococcal 2018-04-17 Completed [facility] polysaccharide PPV23 polysaccharide PPV23 00:00:00 Family Practice influenza, high dose influenza, high dose 2018-04-17 Completed [facility] seasonal seasonal 00:00:00 Family Practice pneumococcal pneumococcal 2018-04-17 Completed [facility] polysaccharide PPV23 polysaccharide PPV23 00:00:00 Family Practice influenza, high dose influenza, high dose 2018-04-17 Completed [facility] seasonal seasonal 00:00:00 Family Practice pneumococcal pneumococcal 2018-04-17 Completed [facility] polysaccharide PPV23 polysaccharide PPV23 00:00:00 Family Practice influenza, high dose influenza, high dose 2018-04-17 Completed [facility] seasonal seasonal 00:00:00 Family Practice pneumococcal pneumococcal 2018-04-17 Completed [facility] polysaccharide PPV23 polysaccharide PPV23 00:00:00 Family Practice influenza, high dose influenza, high dose 2018-04-17 Completed [facility] seasonal seasonal 00:00:00 [facility] pneumococcal pneumococcal 2018-04-17 Completed [facility] polysaccharide PPV23 polysaccharide PPV23 00:00:00 Family Practice influenza, seasonal, influenza, seasonal, 2017-03-29 Completed [facility] injectable injectable 00:00:00 Family Practice influenza, seasonal, influenza, seasonal, 2017-03-29 Completed [facility] injectable injectable 00:00:00 Family Practice influenza, seasonal, influenza, seasonal, 2017-03-29 Completed [facility] injectable injectable 00:00:00 Family Practice influenza, seasonal, influenza, seasonal, 2017-03-29 Completed [facility] injectable injectable 00:00:00 Family Practice influenza, seasonal, influenza, seasonal, 2017-03-29 Completed [facility] injectable injectable 00:00:00 Family Practice influenza, seasonal, influenza, seasonal, 2017-03-29 Completed [facility] injectable injectable 00:00:00 Family Practice influenza, seasonal, influenza, seasonal, 2017-03-29 Completed [facility] injectable injectable 00:00:00 Family Practice influenza, seasonal, influenza, seasonal, 2017-03-29 Completed [facility] injectable injectable 00:00:00 Family Practice influenza, seasonal, influenza, seasonal, 2016-03-06 Completed [facility] influenza, seasonal, influenza, seasonal, 2016-03-06 Completed [facility] influenza, seasonal, influenza, seasonal, 2016-03-06 Completed [facility] influenza, seasonal, influenza, seasonal, 2016-03-06 Completed [facility] influenza, seasonal, influenza, seasonal, 2016-03-06 Completed [facility] influenza, seasonal, influenza, seasonal, 2016-03-06 Completed [facility] influenza, seasonal, influenza, seasonal, 2016-03-06 Completed [facility] injectable injectable 00:00:00 Family Practice influenza, seasonal, influenza, seasonal, 2016-03-06 Completed [facility] injectable injectable 00:00:00 Family Practice pneumococcal pneumococcal 2016-02-29 Completed [facility] conjugate PCV 13 conjugate PCV 13 00:00:00 [facility] pneumococcal pneumococcal 2016-02-29 Completed [facility] conjugate PCV 13 conjugate PCV 13 00:00:00 [facility] pneumococcal pneumococcal 2016-02-29 Completed [facility] conjugate PCV 13 conjugate PCV 13 00:00:00 [facility] pneumococcal pneumococcal 2016-02-29 Completed [facility] conjugate PCV 13 conjugate PCV 13 00:00:00 [facility] pneumococcal pneumococcal 2016-02-29 Completed [facility] conjugate PCV 13 conjugate PCV 13 00:00:00 [facility] pneumococcal pneumococcal 2016-02-29 Completed [facility] conjugate PCV 13 conjugate PCV 13 00:00:00 [facility] pneumococcal pneumococcal 2016-02-29 Completed [facility] conjugate PCV 13 conjugate PCV 13 00:00:00 [facility] pneumococcal pneumococcal 2016-02-29 Completed [facility] conjugate PCV 13 conjugate PCV 13 00:00:00 [facility] influenza, seasonal, influenza, seasonal, 2015-03-24 Completed [facility] influenza, seasonal, influenza, seasonal, 2015-03-24 Completed [facility] influenza, seasonal, influenza, seasonal, 2015-03-24 Completed [facility] influenza, seasonal, influenza, seasonal, 2015-03-24 Completed [facility] influenza, seasonal, influenza, seasonal, 2015-03-24 Completed [facility] influenza, seasonal, influenza, seasonal, 2015-03-24 Completed [facility] influenza, seasonal, influenza, seasonal, 2015-03-24 Completed [facility] influenza, seasonal, influenza, seasonal, 2015-03-24 Completed [facility] influenza, seasonal, influenza, seasonal, 2014-05-05 Completed [facility] influenza, seasonal, influenza, seasonal, 2014-05-05 Completed [facility] influenza, seasonal, influenza, seasonal, 2014-05-05 Completed [facility] influenza, seasonal, influenza, seasonal, 2014-05-05 Completed [facility] influenza, seasonal, influenza, seasonal, 2014-05-05 Completed [facility] influenza, seasonal, influenza, seasonal, 2014-05-05 Completed [facility] influenza, seasonal, influenza, seasonal, 2014-05-05 Completed [facility] influenza, seasonal, influenza, seasonal, 2014-05-05 Completed [facility]:00 Family Practice zoster live zoster live 2013-03-21 Completed [facility] 00:00:00 Family Practice zoster live zoster live 2013-03-21 Completed [facility] 00:00:00 Family Practice zoster live zoster live 2013-03-21 Completed [facility] 00:00:00 Family Practice zoster live zoster live 2013-03-21 Completed [facility] 00:00:00 Family Practice zoster live zoster live 2013-03-21 Completed [facility] 00:00:00 Family Practice zoster live zoster live 2013-03-21 Completed [facility] 00:00:00 Family Practice zoster live zoster live 2013-03-21 Completed [facility] 00:00:00 Family Practice zoster live zoster live 2013-03-21 Completed [facility] 00:00:00 Family Practice pneumococcal pneumococcal 2007-08-26 Completed [facility] polysaccharide PPV23 polysaccharide PPV23 00:00:00 Family Practice pneumococcal pneumococcal 2007-08-26 Completed [facility] polysaccharide PPV23 polysaccharide PPV23 00:00:00 Family Practice pneumococcal pneumococcal 2007-08-26 Completed [facility] polysaccharide PPV23 polysaccharide PPV23 00:00:00 Family Practice pneumococcal pneumococcal 2007-08-26 Completed [facility] polysaccharide PPV23 polysaccharide PPV23 00:00:00 Family Practice pneumococcal pneumococcal 2007-08-26 Completed [facility] polysaccharide PPV23 polysaccharide PPV23 00:00:00 Family Practice pneumococcal pneumococcal 2007-08-26 Completed [facility] polysaccharide PPV23 polysaccharide PPV23 00:00:00 Family Practice pneumococcal pneumococcal 2007-08-26 Completed [facility] polysaccharide PPV23 polysaccharide PPV23 00:00:00 Family Practice pneumococcal pneumococcal 2007-08-26 Completed [facility] polysaccharide PPV23 polysaccharide PPV23 00:00:00 Family Practice influenza, influenza, Unknown Completed [facility] high-dose, high-dose, Family quadrivalent quadrivalent Practice Influenza vaccine, Influenza vaccine, Unknown Completed [facility] quadrivalent, quadrivalent, Family adjuvanted adjuvanted Practice COVID-19, mRNA, COVID-19, mRNA, Unknown Completed [facility] age LNP-S, PF, 100 LNP-S, PF, 100 Family mcg/0.5 mL dose mcg/0.5 mL dose Prac yoshi (Moderna) (Moderna) influenza, influenza, Unknown Completed [facility] trivalent, trivalent, Family adjuvanted adjuvanted Practice influenza, influenza, Unknown Completed [facility] trivalent, trivalent, Family adjuvanted adjuvanted Practice influenza, high dose influenza, high dose Unknown Completed [facility] seasonal seasonal Family Practice pneumococcal pneumococcal Unknown Completed [facility] polysaccharide PPV23 polysaccharide PPV23 Family Practice influenza, seasonal, influenza, seasonal, Unknown Completed [facility] injectable injectable Family Practice influenza, seasonal, influenza, seasonal, Unknown Completed [facility] injectable injectable Family Practice pneumococcal pneumococcal Unknown Completed [facility] conjugate PCV 13 conjugate PCV 13 [facility] influenza, seasonal, influenza, seasonal, Unknown Completed [facility] injectable Family Practice influenza, seasonal, influenza, seasonal, Unknown Completed [facility] injectable injectable Family Practice zoster live zoster live Unknown Completed [facility] Practice pneumococcal pneumococcal Unknown Completed [facility] polysaccharide PPV23 polysaccharide PPV23 [facility] Practice influenza, influenza, Unknown Completed [facility] high-dose, high-dose, Family quadrivalent quadrivalent Practice Influenza vaccine, Influenza vaccine, Unknown Completed [facility] quadrivalent, quadrivalent, Family adjuvanted adjuvanted Practice COVID-19, mRNA, COVID-19, mRNA, Unknown Completed [facility] age LNP-S, PF, 100 LNP-S, PF, 100 Family mcg/0.5 mL dose mcg/0.5 mL dose Prac yoshi (Moderna) (Moderna) influenza, influenza, Unknown Completed [facility] trivalent, trivalent, Family adjuvanted adjuvanted Practice influenza, influenza, Unknown Completed [facility] trivalent, trivalent, Family adjuvanted adjuvanted Practice influenza, high dose influenza, high dose Unknown Completed [facility] seasonal seasonal Family Practice pneumococcal pneumococcal Unknown Completed [facility] polysaccharide PPV23 polysaccharide PPV23 [facility] Practice influenza, seasonal, influenza, seasonal, Unknown Completed [facility] Family Practice influenza, seasonal, influenza, seasonal, Unknown Completed [facility] Family Practice pneumococcal pneumococcal Unknown Completed [facility] conjugate PCV 13 conjugate PCV 13 [facility] influenza, seasonal, influenza, seasonal, Unknown Completed [facility] injectable injectable Family Practice influenza, seasonal, influenza, seasonal, Unknown Completed [facility] injectable Family Practice zoster live zoster live Unknown Completed [facility] pneumococcal pneumococcal Unknown Completed [facility] polysaccharide PPV23 polysaccharide PPV23 [facility] Practice Vital Signs Vital Name Observation Time Observation Value Comments Source Body Weight 2023-04-05 00:00:00 211 [lb_av] [facility] Height 2023-04-05 00:00:00 71 [in_i] [facility] BP Diastolic 2023-04-05 00:00:00 71 mm[Hg] [facility] BMI (Body Mass 2023-04-05 00:00:00 29.4 kg/m2 [facility] BP Systolic 2023-04-05 00:00:00 147 mm[Hg] [facility] BP Diastolic 2023-04-02 00:00:00 80 mm[Hg] [facility] Height 2023-04-02 00:00:00 71 [in_i] [facility] BP Systolic 2023-04-02 00:00:00 120 mm[Hg] [facility] BMI (Body Mass 2023-02-08 00:00:00 30.2 kg/m2 [facility] Body Weight 2023-02-08 00:00:00 216.6 [lb_av] [facility] BP Diastolic 2023-02-08 00:00:00 86 mm[Hg] [facility] Height 2023-02-08 00:00:00 71 [in_i] [facility] BP Systolic 2023-02-08 00:00:00 138 mm[Hg] [facility] BMI (Body Mass 2023-01-19 00:00:00 29 kg/m2 [facility] Body Weight 2023-01-19 00:00:00 208 [lb_av] [facility] BP Systolic 2023-01-19 00:00:00 127 mm[Hg] [facility] Height 2023-01-19 00:00:00 71 [in_i] [facility] BP Diastolic 2023-01-19 00:00:00 68 mm[Hg] [facility] BP Systolic 2023-01-18 00:00:00 128 mm[Hg] [facility] Height 2023-01-18 00:00:00 71 [in_i] [facility] BP Diastolic 2023-01-18 00:00:00 68 mm[Hg] [facility] BP Diastolic 2022-09-21 00:00:00 69 mm[Hg] [facility] Height 2022-09-21 00:00:00 71 [in_i] [facility] BMI (Body Mass 2022-09-21 00:00:00 28.5 kg/m2 [facility] BP Systolic 2022-09-21 00:00:00 177 mm[Hg] [facility] Body Weight 2022-09-21 00:00:00 204.2 [lb_av] [...] BMI (Body Mass 2021-12-05 00:00:00 29 kg/m2 [facility] BP Systolic 2021-12-05 00:00:00 168 mm[Hg] [facility] Body Weight 2021-12-05 00:00:00 208 [lb_av] [facility] BP Diastolic 2021-10-18 00:00:00 80 mm[Hg] [facility] Height 2021-10-18 00:00:00 71 [in_i] [facility] BMI (Body Mass 2021-10-18 00:00:00 28.7 kg/m2 [facility] Practice BP Systolic 2021-10-18 00:00:00 166 mm[Hg] [facility] Body Weight 2021-10-18 00:00:00 206 [lb_av] [facility] Procedures Procedure Date / Time Performing Clinician Source Performed TTE COMPLETE, WO 2023-01-30 15:21:00 [facility] CONTRAST, W DOPPLER ([id number]) US ABDOMEN COMPLETE 2023-01-30 [facility] 2023-01-19 00:00:00 [facility] transthoracic, complete, Practic e w/ color flow US, abdomen, complete 2023-01-19 00:00:00 [facility] X-RAY OF CHEST 2 VIEW 2023-01-19 00:00:00 [facility] X-RAY OF CHEST 2 VIEW 2022-06-14 00:00:00 [facility] US, abdomen, complete 2022-02-15 00:00:00 [facility] Appendectomy [facility] Plan of Care Planned Activity Planned Date Details Comments Source Future Scheduled Test 2023-04-23 CBC w/ auto diff [facility] 00:[facility]:00 [code = CBC w/ auto Practice diff] Future Scheduled Test 2023-04-05 Hepatitis C Method [facility] 20:07:37 screening (procedure) [code = 739196550] Future Scheduled Test 2023-04-05 HEPATITIS B Method [facility] 20:07:37 VACCINES (1 of 3 - Risk 3-dose series) [code = HEPATITIS B VACCINES (1 of 3 - Risk 3-dose series)] Future Scheduled Test 2023-04-05 SHINGLES VACCINES [facility] 20:07:37 (2 of 3) [code = SHINGLES VACCINES (2 of 3)] Future Scheduled Test 2023-04-05 COVID-19 VACCINE (2 [facility] 20:07:37 - season) [code = COVID-19 VACCINE (2 - season)] Future Scheduled Test 2023-04-05 INFLUENZA VACCINE [facility] 20:07:37 (#1) [code = INFLUENZA VACCINE (#1)] Future Scheduled Test 2023-02-12 Hepatitis C Method [facility] 11:20:07 screening (procedure) [code = 027723682] Future Scheduled Test 2023-02-12 HEPATITIS B Method [facility] 11:20:07 VACCINES (1 of 3 - Risk 3-dose series) [code = HEPATITIS B VACCINES (1 of 3 - Risk 3-dose series)] Future Scheduled Test 2023-02-12 SHINGLES VACCINES [facility] 11:20:07 (2 of 3) [code = SHINGLES VACCINES (2 of 3)] Future Scheduled Test 2023-02-12 COVID-19 VACCINE (2 [facility] 11:20:07 - Moderna series) [code = COVID-19 VACCINE (2 - Moderna series)] Future Scheduled Test 2023-02-12 INFLUENZA VACCINE [facility] 11:20:07 (#1) [code = INFLUENZA VACCINE (#1)] Future Appointment 2023-05-15 Clint Flaherty 14:00:[address] [place] [address] Zainab Alvarez; [address] [place] [address] Encounters Start End Encounter Admission Attending Care Care Encounter Source Date/Time Date/Time Type Type Clinicians Facility Department ID 2023-04-05 2023-04-05 Celia VFP [place] - [id number] [facility] 00:00:00 00:00:00 MD Amina: Abbie Garcias ly [address] [facility] [place] Silvino Alvarez, [address] [facility] [address] [address] , Ph. 2023-04-02 2023-04-02 Celia [facility] [place] - [id number] [facility] 00:00:00 00:00:00 MD Amina: Abbie Garcias ly [address] [facility] [place] Silvino Alvarez, [address] [place] [address] , Ph. 2023-03-27 2023-03-27 Outpatient Iyer_H_HOU_ VFP VFP [id number] [facility] 00:00:00 00:00:00 [id number] Family Practic e 2023-03-27 2023-03-27 Outpatient Iyer_H_HOU_ VFP VFP [address] [place] [address] 00:00:00 00:00:00 [id number] Family Practic e 2023-02-08 2023-02-08 Celia VFP [place] - [id number] [facility] 00:00:00 00:00:00 MD Amina: [facility] 7111 [facility] [place] [facility]SAMU_Anayeli Alvarez, [facility] [address], [place] [address] , Ph. 2023-02-07 2023-02-07 Outpatient Iyer_H_HOU_ VFP VFP [address] [place] [address] 00:00:00 00:00:00 [id number] Family Practic e 2023-01-30 2023-01-30 [facility], 1.2.840.1 [id number] Methodi 08:44:04 23:59:00 Encounter Celia [id number] 3.430.2.7 Hospit a .3.158892 l .8 2023-01-30 2023-01-30 [facility], 1.2.840.1 [id number] Methodi 08:44:04 23:59:00 Encounter Celia [id number] 3.430.2.7 Hospit a .3.255637 l .8 2023-01-30 2023-01-30 [facility], 1.2.840.1 [id number] Methodi 08:41:29 08:43:00 Encounter Celia [id number] 3.430.2.7 Hospit a .3.388172 l .8 2023-01-30 2023-01-30 [facility] 1.2.840.1 [id number] Methodi 08:41:29 08:43:00 Encounter Celia [id number] 3.430.2.7 Hospit a .3.559254 l .8 2023-01-22 2023-01-22 Transcribe Amina, 1.2.840.1 [id number] [facility] 00:00:00 00:00:00 Orders Celia [id number] 3.430.2.7 Hospit a .3.003946 l .8 2023-01-22 2023-01-22 Transcribe [facility], 1.2.840.1 [id number] [facility] 00:00:00 00:00:00 Orders Celia [id number] 3.430.2.7 Hospit a .3.545389 l .8 2023-01-19 2023-01-19 Outpatient Iyer_H_HOU_ VFP VFP [id number] [facility] 00:00:00 00:00:00 [id number] Family Practic e 2023-01-19 2023-01-19 Outpatient Iyer_H_HOU_ VFP VFP 206 [facility]720 [facility] 00:00:00 00:00:00 [id number] Family Practic e 2023-01-19 2023-01-19 Celia VFP [place] - [id number] [facility] 00:00:00 00:00:00 MD Amina: Abbie Garcias ly [address] [place] [address] Medical [place] - e [place] Silvino Alvarez, [address] [address] , Ph. 2023-01-18 2023-01-18 Celia VFP [place] - [id number] [facility] 00:00:00 00:00:00 MD Amina: Abbie wright 71Angelica [facility] [place] - e [place] Silvino Alvarez, [address] [address] , Ph. 2023-01-12 2023-01-12 Outpatient Iyer_H_HOU_ VFP VFP [id number] [facility] 00:00:00 00:00:00 [id number] Family Practic e 2022-11-13 2022-11-13 Outpatient Iyer_H_HOU_ VFP VFP [id number] [facility] 00:00:00 00:00:00 [id number] Family Practic e 2022-11-03 2022-11-03 Outpatient Iyer_H VFP VFP [id number] - [facility] 00:00:00 00:00:00 [id number] Family Practic e 2022-10-26 2022-10-26 Outpatient Iyer_H VFP VFP [id number] - [facility] 00:00:00 00:00:00 [id number] Family Practic e 2022-09-21 2022-09-21 Outpatient Iyer_H VFP VFP [id number] [facility] 00:00:00 00:00:00 [id number] Family Practic e 2022-09-21 2022-09-21 Outpatient Iyer_H VFP VFP [id number] [facility] 00:00:00 00:00:00 [id number] Family Practic e 2022-09-21 2022-09-21 Outpatient Iyer_H VFP VFP [id number] [facility] 00:00:00 00:00:00 [id number] Family Practic e 2022-09-21 2022-09-21 Celia VFP [place] - [id number] [facility] 00:00:00 00:00:00 MD Amina: [facility] ly [address] [place] [address] Medical [place] - [place] Silvino Alvarez, [address] [address] , Ph. 2022-06-14 2022-06-14 Celia VFP [place] - [id number] [facility] 00:00:00 00:00:00 MD Amina: [facility] ly [address] [place] [address] Medical [place] - [place] Silvino Alvarez, [address] [address] , Ph. 2022-05-30 2022-05-30 Outpatient Iyer_H VFP VFP [id number] [facility] 00:00:00 00:00:00 [id number] Family Practic e 2022-04-17 2022-04-17 Celia VFP - [id number] [facility] 00:00:00 00:00:00 MD Amina: [facility] ly [address] [facility] [place] - [place] Silvino Alvarez, [address] [address] , Ph. 2022-03-28 2022-03-28 Outpatient Iyer_H VFP VFP [id number] [facility] 00:00:00 00:00:00 [id number] Family Practic e 2022-03-28 2022-03-28 Outpatient Iyer_H VFP VFP [id number] [facility] 00:00:00 00:00:00 [id number] Family Practic e 2022-03-26 2022-03-26 Outpatient Iyer_H VFP VFP [id number] [facility] 00:00:00 00:00:00 [id number] Family Practic e 2022-03-24 2022-03-24 Outpatient Iyer_H VFP VFP [id number] - [facility] 00:00:00 00:00:00 [id number] Family Practic e 2022-03-22 2022-03-22 Outpatient Iyer_H VFP VFP [id number] [facility] 00:00:00 00:00:00 [id number] Family Practic e 2022-03-17 2022-03-17 Outpatient Iyer_H VFP VFP [id number] [facility] 00:00:00 00:00:00 [id number] Family Practic e 2022-03-15 2022-03-15 Outpatient Iyer_H VFP VFP [id number] [facility] 00:00:00 00:00:00 [id number] Family Practic e 2022-03-15 2022-03-15 Celia VFP - [id number] [facility] 00:00:00 00:00:00 MD Amina: [facility] ly [address] [facility] [place] - [place] Silvino Alvarez, [address] [facility], [place] [address] , Ph. 2022-03-01 2022-03-01 Outpatient AMINA, [facility] [id number] [facility] 00:00:00 00:00:00 CELIA [address] 2022-02-16 2022-02-16 Outpatient Iyer_H VFP VFP [id number] [facility] 00:00:00 00:00:00 [id number] Family Practic e 2022-02-15 2022-02-15 Outpatient Iyer_H VFP VFP [id number] - [facility] 00:00:00 00:00:00 [id number] Family Practic e 2022-02-15 2022-02-15 Celia VFP [place] - [id number] [facility] 00:00:00 00:00:00 MD Amina: Abbie Garcias ly 7111 Medical - Practi c [facility] [place] - [place] Silvino Alvarez, [facility] [address], [place] [address] , Ph. 2022-01-17 2022-01-17 [facility] [id number] [facility] 00:00:00 00:00:00 JANINE [address] 2022-01-12 2022-01-12 [facility] [id number] [facility] 00:00:00 00:00:00 JANINE [address] 2021-12-05 2021-12-05 Outpatient Iyer_H VFP VFP [id number] [facility] 05:02:00 05:02:00 [id number] Family Practic e 2021-12-05 2021-12-05 Celia VFP [place] - [id number] [facility] 00:00:00 00:00:00 MD Amina: Abbie Garcias ly 7111 Medical - Practi c [facility] Silvino [facility] [address], [place] [address] , Ph. 2021-10-18 2021-10-18 Outpatient Iyer_H VFP VFP [id number] [facility] 06:15:00 06:15:00 [id number] Family Practic e 2021-10-18 2021-10-18 Celia VFP [place] - [id number] [facility] 00:00:00 00:00:00 MD Amina: [facility] Amando ly 7111 Medical - Practi c Medical _HOU_Beel [facility] [address], [place] [address] , Ph. 2020-06-02 2020-06-[address] [facility] [place] [id number] [address] [place] [address] 11:00:00 11:00:00 Celia [address] [facility] 2019-12-18 2019-12-18 [facility] [id number] [place] [address] 00:00:00 00:00:00 CELIA [address] 2019-12-18 2019-12-18 Outpatient [facility] [id number] [place] [address] 00:00:00 00:00:00 CELIA [address] Results Test Description Test Time Test Comments Results Result Comments Source Transthoracic Echocardiogram Complete, (w Contrast, St rain and 2023-02-06 11:56:16 3D if needed) Test Item Value Reference Range Interpretation Comme nts LV EF,BP (test code = 68.66 % [id number]) IVS,d (test code = 1.29 cm 0.6-1.19 0472860790) IVS s 2D (test code = 1.84 cm 7572006849) LVPWD,d (test code = 1.30 cm 0.60-1.19 7734252612) LVPW s PLAX (test code = 1.61 cm 2403810836) LV,d (test code = 3.95 cm 4.2-5.8 5053357517) LV,s (test code = 2.57 cm 5130134259) LV mass (test code = 182.57 g 2093583566) LVOT Diam,S (test code = 1.93 cm 7761921119) LV MATAMOROS VOL (test code = 67.86 ml 62-150 1080183668) LV SYS VOL (test code = 23.80 ml 21-61 0679368567) LV Vol,d A2C (test code = 60.80 mL 2965219483) LV Vol,s A2C (test code = 21.54 mL 4500876494) LV Vol,d A4C (test code = 107.82 ml 5185558946) LV Vol,s A4C (test code = 31.09 ml 0740153139) Relative wall thickness 0.66 cm (test code = 4268951939) E/A ratio (test code = 0.79 <=0.8 1190549309) MV Peak A Mathew (test code 1.18 m/s = 2666885574) MV Peak E Mathew (test code 0.93 m/s = 3275007528) E wave decelartion time 249.41 See_Comment [Au tomated message] (test code = 5558764770) The system which generated this result transmitted ref erence range: 200 msec . The reference range was not used to int erpret this result as normal/abnormal . LV Mass Index (test code 88.63 g/m2 = 9453650786) LV Systolic Volume Index 10.46 mL/m2 11-31 (test code = 9524686596) LV Diastolic Volume Index 29.51 mL/m2 34-74 (test code = 4397823625) LV % FS,2D (test code = 34.94 % 1377757781) IVS/LVPW,2D (test code = 1.00 5898655787) LV EF,2D (test code = 72.56 % 6209441956) LV FS Cube 2D (test code 35.02 = 7834739606) LV FS Teich 2D (test code 35.02 = 3685042196) LV SI Teich 2D (test code 21.34 ml/m2 = 7298508746) LV SV Teich 2D (test code 44.05 ml = 7568655095) LV Vol s Teich PSAX (test 23.80 ml code = 3166113945) LVOT stroke volume (test 0.79 cm3 code = 0613115170) LVOT VTI (test code = 0.27 m 0327936688) LA Vol MOD A4C (test code 63.49 ml = 8267728627) LA Ao Ratio Mmode (test 1.14 code = 1356591280) LVOT area (test code = 2.92 cm2 3336159327) LVOT Vmax (test code = 1.19 m/s 9726968394) AoV Mean PG (test code = 15.52 See_Comment [A utomated message] 2339627694) The system Vinveli generated this result transmitted ref erence range: 20 mmHg. The reference range was not used to int erpret this result as normal/abnormal . AoV Peak PG (test code = 26.09 mmHg 1679514012) AV LVOT peak gradient 5.62 mmHg (test code = 4822831637) AoV area i VTI BSA [place] 0.69 cm2/m2 >=0.85 A (test code = 4186498087) AoV Area, Vmax (test code 1.36 cm2 >=1.5 = 0855465041) LVOT VTI (CM) (test code 27.00 cm = 5027460394) AoV Vmax (test code = 2.66 m/s 6283306605) AoV Vmn (test code = 1.88 m/s 0671325586) AoV Area, VTI (test code 1.43 cm2 = 7133303736) LVOT SI (test code = 38.38 ml/m2 5039032342) AoV Cusp sep (test code = 0.59 5486049957) Velocity Ratio (V1/V2) 0.45 m/s (test code = 4689) MR peak grad (test code = 84.17 mmHg 9428727628) MV stenosis pressure 1/2 72.33 ms <=150 time (test code = 7119747068) MV E A ratio (test code = 0.79 8152399371) MV valve area p 1/2 3.04 cm2 method (test code = 2605660085) RVSP (test code = 36.37 See_Comment [Automate d message] 2826547496) The system Vinveli generated this result transmitted ref erence range: 40.00 mm Hg. The reference r andrew was not used to interpret this result as normal/abnor mal. RA pressure (test code = 3.0 mmHg 5121347706) TR pk grad (test code = 33.4 mmHg 1585015440) TR Vpeak (test code = 2.89 m/s 0570606835) PV AT (test code = 103.81 msec 2147172954) Ao root annulus (test 3.05 cm code = 7352631650) BSA (test code = 2.06 m2 4093486761) BSA Sousa (test code = 2.17 m2 5053378746) BSA Haycock (test code = 2.16 m2 9988261815) MV Decel slope (test code 3.74 m/s2 = 1972717108) LVPW pct thck PLAX (test 24.02 % code = 5145233790) LV vol s cube 2D (test 16.89 ml code = 0939908745) LV vol d cube 2D (test 61.54 ml code = 8195980062) LV SV Cube 2D (test code 44.65 ml = 0454277383) LV SI Cube 2D (test code 21.63 ml/m2 = 4393158700) IVS pct thck PLAX (test 42.06 % code = 8601496988) AoV area I VMN bsa (test 0.65 cm2/m2 code = 6025517471) LVOT mean grad (test code 3.39 mmHg = 4776616578) Aov area Vmn (test code = 1.35 cm2 3015124090) Pt Wt (test code = 95.25 7737256131) Pt Size (test code = 170.18 2401233601) MV AE ratio (test code = 1.27 0540199195) LVOT Vmn (test code = 0.87 4552196956) MR Vmax (test code = 4.59 m/s 3898429413) PV Vmn (test code = 12.92 m/s 5310536635) LV Vol Index s bpmod BSA 41.23 ml/m2 Edgardo (test code = 9266253759) LV SI MOD BP BSA Edgardo 28.31 ml/m2 (test code = 6355196605) BMI (test code = 32.89 kg/m2 7298283580) LV Vol,s BP (test code = 26.67 nl 1883575011) LV Vol,d BP (test code = 85.12 ml 8211416240) LV SV,BP (test code = 58.44 % 8210976592) LV SV,A4C (test code = 76.73 % 8240753396) LV SV,A2C (test code = 39.27 % 2969756455) Anthony Adams,s A4C (test code 6.60 cm = 1869723492) Anthony Adams,s A2C (test code 6.02 cm = 3943430620) Anthony Adams,d A4C (test code 8.54 cm = 9023108348) Anthony Adams,d A2C (test code 7.70 cm = 3714791256) LV EF,A4C (test code = 71.16 % 4028996673) LV EF,A2C (test code = 64.58 % 9106314659) AoV VTI (test code = 0.51 m 0332117637) E prime sept (test code = 0.06 >=7.00 6504415226) E prime lat (test code = 0.13 >=10.00 3421034607) TAPSE (test code = 2.6 cm 3588400006) LA diam s (test code = 3.5 cm 5619294137) LA Volume Index (test 34.3 mL/m2 <=34 code = 3529940044) LA VOL 2C (test code = 63.0 ml 3352933303) LA Vol 4C (test code = 70.0 ml 4799380724) D E excurs (test code = 1.7 2770449032) E f slope (test code = 0.05 8669414461) PV acc T slope (test code 6.8 = 3755059284) LV MASS INDEX (test code 87.2 g/m2 49-115 = 1726891162) MAYCOL (test code = MAYCOL) Left Ventricle: [...] normal. Lab Interpretation (test Abnormal code = 11503-2) [facility] (w Contrast, Strain and 3D if needed)2023-02-06 11:56:16 Test Item Value Reference Interpretation Comments Range LV EF,BP (test code 68.66 % = 6450668555) IVS,d (test code = 1.29 cm 0.6-1.19 2691259655) IVS s 2D (test code 1.84 cm = 8293053544) LVPWD,d (test code = 1.30 cm 0.60-1.19 3598860323) LVPW s PLAX (test 1.61 cm code = 3716038279) LV,d (test code = 3.95 cm 4.2-5.8 8177305000) LV,s (test code = 2.57 cm 2287447455) LV mass (test code = 182.57 g 8779871956) LVOT Diam,S (test 1.93 cm code = 4495982504) LV MATAMOROS VOL (test 67.86 ml 62-150 code = 5059914794) LV SYS VOL (test 23.80 ml 21-61 code = 6161841399) LV Vol,d A2C (test 60.80 mL code = 3444934109) LV Vol,s A2C (test 21.54 mL code = 7586558696) LV Vol,d A4C (test 107.82 ml code = 8256329996) LV Vol,s A4C (test 31.09 ml code = 6856626711) Relative wall 0.66 cm thickness (test code = 3015295467) E/A ratio (test code 0.79 <=0.8 = 2982880317) MV Peak A Mathew (test 1.18 m/s code = 5172306592) MV Peak E Mathew (test 0.93 m/s code = 4551936533) E wave decelartion 249.41 See_Comment [Automat ed time (test code = message] T he 7065190779) system which generated this result transmitted reference range : 200 msec. The reference range was not used to interpret this result as normal/abnormal . LV Mass Index (test 88.63 g/m2 code = 2546774864) LV Systolic Volume 10.46 mL/m2 11-31 Index (test code = 7260656334) LV Diastolic Volume 29.51 mL/m2 34-74 Index (test code = 6670114308) LV % FS,2D (test 34.94 % code = 0559790464) IVS/LVPW,2D (test 1.00 code = 2355727652) LV EF,2D (test code 72.56 % = 5069739270) LV FS Cube 2D (test 35.02 code = 1332181133) LV FS Teich 2D (test 35.02 code = 9112435970) LV SI Teich 2D (test 21.34 ml/m2 code = 1777875021) LV SV Teich 2D (test 44.05 ml code = 0982264457) LV Vol s Teich PSAX 23.80 ml (test code = 8980095558) LVOT stroke volume 0.79 cm3 (test code = 7395340709) LVOT VTI (test code 0.27 m = 6522877519) LA Vol MOD A4C (test 63.49 ml code = 4842627036) LA Ao Ratio Mmode 1.14 (test code = 0489705500) LVOT area (test code 2.92 cm2 = 1924092891) LVOT Vmax (test code 1.19 m/s = 5086217543) AoV Mean PG (test 15.52 See_Comment [Automate d code = 2567326169) message] The system which generated this result transmitted reference range : 20 mmHg. The reference range was not used to interpret this result as normal/abnormal . AoV Peak PG (test 26.09 mmHg code = 9108891647) AV LVOT peak 5.62 mmHg gradient (test code = 3834260774) AoV area i VTI BSA 0.69 cm2/m2 >=0.85 A [place] (test code = 8700159884) AoV Area, Vmax (test 1.36 cm2 >=1.5 code = 4607572910) LVOT VTI (CM) (test 27.00 cm code = 3888850875) AoV Vmax (test code 2.66 m/s = 9216715807) AoV Vmn (test code = 1.88 m/s 6097280371) AoV Area, VTI (test 1.43 cm2 code = 4384783488) LVOT SI (test code = 38.38 ml/m2 7014565920) AoV Cusp sep (test 0.59 code = 3936499282) Velocity Ratio 0.45 m/s (V1/V2) (test code = 4689) MR peak grad (test 84.17 mmHg code = 7107985072) MV stenosis pressure 72.33 ms <=150 1/2 time (test code = 4720280941) MV E A ratio (test 0.79 code = 7994323963) MV valve area p 1/2 3.04 cm2 method (test code = 0586743407) RVSP (test code = 36.37 See_Comment [Automate d 5850371486) message] The system which generated this result transmitted reference range : 40.00 mmHg. The reference range was not used to interpret this result as normal/abnormal . RA pressure (test 3.0 mmHg code = 0871042901) TR pk grad (test 33.4 mmHg code = 3033126578) TR Vpeak (test code 2.89 m/s = 8934633952) PV AT (test code = 103.81 msec 5808719972) Ao root annulus 3.05 cm (test code = 3463853934) BSA (test code = 2.06 m2 0238908122) BSA Sousa (test code 2.17 m2 = 9150574820) BSA Scottcock (test 2.16 m2 code = 0835153899) MV Decel slope (test 3.74 m/s2 code = 3881919423) LVPW pct thck PLAX 24.02 % (test code = 0161588407) LV vol s cube 2D 16.89 ml (test code = 7928572769) LV vol d cube 2D 61.54 ml (test code = 8141737408) LV SV Cube 2D (test 44.65 ml code = 0232456484) LV SI Cube 2D (test 21.63 ml/m2 code = 5019827277) IVS pct thck PLAX 42.06 % (test code = 6930217653) AoV area I VMN bsa 0.65 cm2/m2 (test code = 7842937376) LVOT mean grad (test 3.39 mmHg code = 0425230416) Aov area Vmn (test 1.35 cm2 code = 0875865328) Pt Wt (test code = 95.25 7336936415) Pt Size (test code = 170.18 5351351770) MV AE ratio (test 1.27 code = 2428927374) LVOT Vmn (test code 0.87 = 4277476949) MR Vmax (test code = 4.59 m/s 9469138256) PV Vmn (test code = 12.92 m/s 1602787233) LV Vol Index s bpmod 41.23 ml/m2 BSA Edgardo (test code = 3993800097) LV SI MOD BP BSA 28.31 ml/m2 Edgardo (test code = 2472278037) BMI (test code = 32.89 kg/m2 6491248832) LV Vol,s BP (test 26.67 nl code = 9807958477) LV Vol,d BP (test 85.12 ml code = 3797454023) LV SV,BP (test code 58.44 % = 6470455203) LV SV,A4C (test code 76.73 % = 7154351444) LV SV,A2C (test code 39.27 % = 5117592796) Anthony Adams,s A4C (test 6.60 cm code = 6793057844) Anthony Adams,s A2C (test 6.02 cm code = 1030122693) Anthony Adams,d A4C (test 8.54 cm code = 7537988358) Anthony Adams,d A2C (test 7.70 cm code = 7975736848) LV EF,A4C (test code 71.16 % = 2234888135) LV EF,A2C (test code 64.58 % = 9065702705) AoV VTI (test code = 0.51 m 9790102173) E prime sept (test 0.06 >=7.00 code = 0731943104) E prime lat (test 0.13 >=10.00 code = 6984380177) TAPSE (test code = 2.6 cm 1868890887) LA diam s (test code 3.5 cm = 7310312576) LA Volume Index 34.3 mL/m2 <=34 (test code = 6111849999) LA VOL 2C (test code 63.0 ml = 7745863076) LA Vol 4C (test code 70.0 ml = 4122074480) D E excurs (test 1.7 code = 8049810499) E f slope (test code 0.05 = 4014535347) PV acc T slope (test 6.8 code = 3982676380) LV MASS INDEX (test 87.2 g/m2 49-115 code = 6182368182) MAYCOL (test code = MAYCOL) Left Ventricle: [...] leaflets. Mildly calcified subvalvular apparatus. Trace valvular regurgitation.Tricus pid ValveValve structure is normal. Mild valvular regurgitation. No pulmonary hypertension is present. RVSP is approximately 36.37 mmHg. RAP is 3.0 mmHg.Aortic ValveValve structure is grossly normal. No stenosis.Pulmonic ValveNot well visualized.Pericardi umThe pericardium is normal. There is no pericardial effusion present.AortaNormal sized annulus. Annulus size is 3.05 cm.Study DetailsStudy quality was fair. A complete 2D, color flow Doppler and spectral Doppler echocardiogram was performed.The apical, parasternal and subcostal views were obtained. Patient exhibited sinus rhythm.Wall Scoring BaselineScore Index: 1.00The left ventricular wall motion is normal. Lab Interpretation Abnormal (test code = 63256-5) [facility] metabolic 2000 panel - Serum or [id number] 00:00:00 Test Item Value Reference Range Interpretation [...] Creatinine-based formula (CKD-EPI 2020) (test code = 01135-2) Urea nitrogen/Creatinine [Mass 29 10-24 H Ratio] [...] in Serum or Plasma (test code = 2028-9) Calcium [Mass/volume] in Serum 9.0 mg/dL 8.6-10.2 or Plasma (test code = 89642-0) [facility] W Auto Differential panel - [id number] 00:00:00 Test Item Value Reference Range Interpretation [...] Blood by Automated count (test code = 07919-9) Immature granulocytes 0.0 x10e3/uL 0.0-0.1 [#/volume] in Blood by Automated count (test code = 11065-4) Morphology [Interpretation] in note: Blood Narrative (test code = 66373-4) [facility] - Serum or Plasma [...] Creatinine-based formula (CKD-EPI 2020) (test code = 39188-5) Urea nitrogen/Creatinine [Mass 21 10-24 Ratio] in [...] mg/dL 8.6-10.2 or Plasma (test code = 00822-9) Protein [Mass/volume] in Serum 6.6 g/dL 6.0-8.5 or Plasma (test code = 2885-2) Albumin [Mass/volume] in Serum 3.5 g/dL 3.8-4.8 L or Plasma (test code = 1751-7) Globulin [Mass/volume] in 3.1 g/dL 1.5-4.5 Serum by calculation (test code = 02082-0) Albumin/Globulin [Mass Ratio] 1.1 1.2-2.2 L in Serum or Plasma (test code = 1759-0) Bilirubin.total [Mass/volume] 0.8 mg/dL 0.0-1.2 in Serum or Plasma (test code = 1974-2) Alkaline phosphatase 105 IU/L 44-121 [Enzymatic activity/volume] in Serum or Plasma (test code = 6768-6) Aspartate aminotransferase 20 IU/L 0-40 [Enzymatic activity/volume] in Serum or Plasma (test code = 1920-8) Alanine aminotransferase 13 IU/L 0-44 [Enzymatic activity/volume] in Serum or Plasma (test code = 1742-6) [facility]Hemoglobin.total in [id number] 00:00:00 Test Item Value Reference Range Interpretation Comments Hemoglobin A1c/Hemoglobin.total in 5.5 % 4.8-5.6 Blood (test code = 4548-4) Glucose mean value [Mass/volume] in 111 mg/dL Blood Estimated from glycated hemoglobin (test code = 55665-0) [facility] W Auto Differential panel - [id number] 00:00:00 Test Item Value Reference Range Interpretation [...] Blood by Automated count (test code = 04507-2) Immature granulocytes 0.0 x10e3/uL 0.0-0.1 [#/volume] in Blood by Automated count (test code = 28627-0) Morphology [Interpretation] in note: Blood Narrative (test code = 25873-7) [facility] 2000 [facility] - Serum or Plasma [...] Creatinine-based formula (CKD-EPI 2020) (test code = 52064-9) Urea nitrogen/Creatinine [Mass 21 10-24 Ratio] in [...] mg/dL 8.6-10.2 or Plasma (test code = 54086-7) Protein [Mass/volume] in Serum 6.6 g/dL 6.0-8.5 or Plasma (test code = 2885-2) Albumin [Mass/volume] in Serum 3.5 g/dL 3.8-4.8 L or Plasma (test code = 1751-7) Globulin [Mass/volume] in 3.1 g/dL 1.5-4.5 Serum by calculation (test code = 52889-7) Albumin/Globulin [Mass Ratio] 1.1 1.2-2.2 L in [...] Serum or Plasma (test code = 1742-6) [facility]/Hemoglobin.total in [id number] 00:00:00 Test Item Value Reference Range Interpretation Comments Hemoglobin A1c/Hemoglobin.total in 5.5 % 4.8-5.6 Blood (test code = 4548-4) Glucose mean value [Mass/volume] in 111 mg/dL Blood Estimated from glycated hemoglobin (test code = 36061-7) [facility] 2000 [facility] - Serum or [id number] 00:00:00 Test Item Value Reference Range Interpretation [...] mg/dL 8.6-10.2 or Plasma (test code = 11904-5) [facility] HospitalUrate [Mass/volume] in Serum or [id number] 00:00:00 Test Item Value Reference Range Interpretation Comments Urate [Mass/volume] in Serum or 5.8 mg/dL 3.8-8.4 Plasma (test code = 3084-1) [facility] 2000 panel - Serum or [id number] 00:00:00 Test Item Value Reference Range Interpretation [...] mg/dL 8.6-10.2 or Plasma (test code = 39849-2) [facility] HospitalNatriuretic peptide B [Mass/volume] in Serum or Plasma 2022-02-21 00:00:00 Test Item Value Reference Range Interpretation Comments Natriuretic peptide B 50.3 pg/mL 0.0-100.0 [Mass/volume] in Serum or Plasma (test code = 26781-8) [facility] HospitalUrate [Mass/volume] in Serum or [id number] 00:00:00 Test Item Value Reference Range Interpretation Comments Urate [Mass/volume] in Serum or 5.9 mg/dL 3.8-8.4 Plasma (test code = 3084-1) [facility] HospitalHem[facility] A1c measurement device [id number] 17:03:00 Test Item Value Reference Range Interpretation Comments Hemoglobin A1c/Hemoglobin.total in 7.5 % 5.7-6.4 H Blood (test code = 4548-4) [facility] [id number] 17:03:00 Test Item Value Reference Range Interpretation Comments Hemoglobin A1c/Hemoglobin.total in 7.5 % 5.7-6.4 H Blood (test code = 4548-4) [facility]EL[facility] W/O [id number] 11:02:00 [facility] : 1945 Sex: MFAX: Celia Rodriguez [phone] [place]: [address]: REG Name: MONSE KIM [facility] : 1945 Age/S: 75/M [address] Unit: [id number] Loc: [place], [place]: [place] [address] Acct: [id number] Dis Date: Status: REG CLI PHONE #: [phone] Exam Date: 06/02/2020 1035 FAX #: [phone] Reason: DIABETES, CIRRHOSIS OF LIVER, ABORMAL WEIGHT LO EXAMS: CPT CODE:[id number] CT ABD PELVIS W/O CONT 65008 Dictation location: U19. CT ABDOMEN AND PELVIS WITHOUT IV CONTRAST HISTORY: DIABETES, CIRRHOSIS OF LIVER, ABNORMAL WEIGHT LOSS COMPARISON: None. TECHNIQUE: AxialCT images of the abdomen and pelvis were obtained with coronal and/or sagittal reformatted views. Automated exposure control, iterative reconstruction technique, and/or adjustment of mA and/or kV according to patient's size was utilized for radiation dose reduction. IV CONTRAST: None. PO CONTRAST: None. Lack of IV contrast limits evaluation of the parenchyma and vasculature. FINDINGS: Visualized lungbases are clear. The heart size is normal. Atherosclerotic calcifications affect the coronary arterie s. The gallbladder is partially distended without surrounding inflammatory changes. The liver has a nodular contour. There is a potential faint peripheral [...] distended without wall thickening. The prostate is mildly enlarged. No free air, free fluid or evidence of a bowel obstruction. The appendix is not definitely visualized. No localized inflammatory changes or fluid collection. No bowel wall thickening. Atherosclerotic calcifications affect the aorta and iliac arteries. No abdominal or pelvic adenopathy. Chronic bilateral spondylolysis of L4. Minimal grade 1 anterolisthesis PAGE 1 Signed Report (CONTINUED) FAX: Celia Rodriguez [phone] [place]: St: REG Name: MONSE KIM [facility] : 1945 Age/S: 75/M [address] Unit: [id number] Loc: E.[place], [place]: [place] [address] Acct: [id number] Dis Date: Status: REG CLI PHONE #: [phone] Exam Date: 06/02/2020 1035 FAX #: [phone] Reason: DIABETES, CIRRHOSIS OF LIVER, ABORMAL WEIGHT LO EXAMS: CPT CODE: [id number] CT ABD PELVIS W/O CONT 23490 (Continued) of L4 on L5. Moderate to [...]
[2023-04-16] MEDS ORDERED: ALBUTEROL 2.5 MG/3 ML NEB SOL ONE (21:21)
[2023-04-16] MEDS ORDERED: MORPHINE 4 MG/ML SYR ONE (21:47)
[2023-04-16] MEDS ORDERED: ONDANSETRON 4 MG/2 ML VIAL ONE (21:47)
--- NOTE | 2023-04-16 22:33 | RAD REPORT ---
EXAM DESCRIPTION: CT - Thoracic Spine W/o Cont - 04/16/2023 10:14 pm CLINICAL HISTORY: fall , spinal pain COMPARISON: No comparisons TECHNIQUE: Axial noncontrast CT imaging of the thoracic spine was performed with coronal and sagitta l re-formatted images. All CT scans are performed using dose optimization technique as appropriate and may include automated exposure control or mA/KV adjustment according to patient size. FINDINGS: No acute thoracic spine fracture seen. No aggressive marrow pattern or malalignment. Paraspinal tissues are normal in thickness. No paraspinal abscess or hematoma seen. Intervertebral disc disease assessment is inherently limited by CT. Within these limitations, mild-to -moderate bony canal stenosis is seen at T10-11 and T11-12, secondary to endplate and facet spurring. Up to moderate neural foraminal narrowing on the left at T11-12 and on the right at T8-9. Mild layering left pleural effusion. Large volume ascites. Splenomegaly and nodular contour of the li marti suggestive of cirrhosis and portal hypertension. IMPRESSION: No acute osseous abnormality. Degenerative changes as above. Mild layering left pleural effusion. Large volume ascites. Splenomegaly and nodular contour of the li marti suggestive of cirrhosis and portal hypertension.
--- NOTE | 2023-04-16 22:47 | RAD REPORT ---
EXAM DESCRIPTION: CT - Spine Lumbar Wo Con - 04/16/2023 10:15 pm CLINICAL HISTORY: fall , spinal pain COMPARISON: Abdomen Pelvis W Contrast dated 03/21/2017 TECHNIQUE: Axial noncontrast CT imaging of the lumbar spine was performed with coronal and sagittal re-formatted images. All CT scans are performed using dose optimization technique as appropriate and may include automated exposure control or mA/KV adjustment according to patient size. FINDINGS: No acute lumbar spine fracture seen. No aggressive marrow pattern or malalignment. Degene rative pars interarticularis defects at L4 bilaterally with 3 millimeter anterolisthesis of L4 over L 5. Paraspinal tissues are normal in thickness. No paraspinal abscess or hematoma seen. Intervertebral disc disease assessment is inherently limited by CT. Within these limitations, combine d changes of disc protrusion, annular mineralization, facet arthropathy and ligamentum flavum bucklin g contribute to vvbl-yp-mosszswf central canal stenosis at L2-3, and mild central canal stenosis at L 4-5 and L5-S1. Variable degrees of neural foraminal narrowing, most pronounced at L5-S1 bilaterally, up to moderate. IMPRESSION: No acute osseous abnormality of the lumbar spine. Multilevel degenerative changes as above, contributing to variable degrees of central canal stenosis most pronounced at L2-3 and to lesser degree at L4-5 and L5-S1. Pars interarticularis defects at L4 b ilaterally, degenerative in appearance.
--- NOTE | 2023-04-16 22:55 | RAD REPORT ---
EXAM DESCRIPTION: CT - Pelvis Wo Cont - 04/16/2023 10:17 pm CLINICAL HISTORY: fall , spinal pain, leg weakness COMPARISON: No comparisons TECHNIQUE: Thin cut axial CT imaging of the pelvis was performed without IV contrast. Multiplanar re formats were generated and reviewed. All CT scans are performed using dose optimization technique as appropriate and may include automated exposure control or mA/KV adjustment according to patient size. FINDINGS: No acute osseus abnormality of the bony pelvis. Degenerative changes of the lower lumbar spine are better evaluated on dedicated lumbar spine CT. Mil m-lp-psefyppm bilateral hip joint degenerative changes. Odja-hb-pniifoxv SI joint degenerative change s. Large volume ascites. . No other suspicious masses or adenopathy in the pelvis. Subcutaneous ovoid ri ght lower back 3.6 cm lesion may represent a sebaceous cyst. Visualized bowel is unremarkable. Mild prostatomegaly. No bladder wall abnormality. IMPRESSION: No acute osseous abnormality of the pelvis. Degenerative changes as above. Large volume ascites.
--- NOTE | 2023-04-16 23:06 | ER ---
Nurse's Notes [facility] Name: Carlos Salgado Age: 77 yrs Sex: Male : 1945 Arrival Date: 04/16/2023 Time: 20:54 Bed 2 Private MD: Diagnosis: Contusion of back wall of thorax;Acute fall at home, contusion of thoracic spine, contusion of upper back, physical debility, large volume ascites, history of hereditary liver cirrhosis Presentation: 04/16 21:06 Chief complaint: EMS states: FALL ONTO GRASS, NO LOC OR NOTED TRAUMA. Coronavirus bp screen: At this time, the client does not indicate any symptoms associated with coronavirus-19. Ebola Screen: No symptoms or risks identified at this time. Initial Sepsis Screen: Does the patient meet any 2 criteria? No. Patient's initial sepsis screen is negative. Does the patient have a suspected source of infection? No. Patient's initial sepsis screen is negative. Risk Assessment: Do you want to hurt yourself or someone else? Patient reports no desire to harm self or others. Onset of symptoms was April 16, 2023 at 20:00. 21:06 Method Of Arrival: EMS: [facility] bp 21:06 Acuity: ALEXANDER 3 bp 21:09 Care prior to arrival: Medication(s) given: FENTANYL 50MCG IV initiated. 18 GA, in the bp left wrist. Triage Assessment: 21:07 General: Appears in no apparent distress. uncomfortable, Behavior is calm, cooperative, bp appropriate for age. Pain: Complains of pain in thoracic area. EENT: No deficits noted. Neuro: No deficits noted. Musculoskeletal: Circulation, motion, and sensation intact. Range of motion: intact in all extremities. Historical: - Allergies: 21:07 No Known Allergies; bp - PMHx: 21:07 cirrhosis of liver; Diabetes - NIDDM; Hypertension; bp - PSHx: 21:07 Appendectomy; bp - Immunization history:: Adult Immunizations up to date. - Social history:: Smoking status: Patient denies any tobacco usage or history of. - Family history:: not pertinent. Screenin:[address] [facility] ED Fall Risk Assessment (Adult) History of falling in the last 3 months, bp including since admission No falls in past 3 months (0 pts). Abuse screen: Denies threats or abuse. Denies injuries from another. Nutritional screening: No deficits noted. Tuberculosis screening: No symptoms or risk factors identified. Assessment: 21:30 General: Appears in no apparent distress. comfortable, Behavior is calm, cooperative, jj7 appropriate for age. Pain: Denies pain. Musculoskeletal: Reports PAIN IN HIS BACK ONLY WHEN HE MOVES. 22:34 Reassessment: Patient appears in no apparent distress at this time. Patient and/or km8 family updated on plan of care and expected duration. Pain level reassessed. Patient is alert, oriented x 3, equal unlabored respirations, skin warm/dry/pink. Patient states symptoms have improved. Vital Signs: 21:30 BP 123 / 61; Pulse 63; Resp 16; Pulse Ox 97% on R/A; km8 21:45 BP 113 / 59; Pulse 62; Resp 16; Pulse Ox 96% on R/A; km8 22:30 BP 115 / 70; Pulse 60; Pulse Ox 99% on R/A; km8 22:34 BP 106 / 59; Pulse 61; Resp 16; Pulse Ox 99% on R/A; km8 ED Course: 20:59 Patient arrived in ED. gm2 21:01 Topher Sher MD is Attending Physician. sp4 21:07 Triage completed. bp 21:07 Arm band placed on. bp 21:08 Patient has correct armband on for positive identification. Bed in low position. Call bp light in reach. Side rails up X2. 21:08 Maintain EMS IV. Dressing intact. Good blood return noted. Site clean \T\ dry. Gauge \T\ bp site: 20 GA LEFT WRIST. 22:16 CT Thoracic Spine Wo Cont In Process Unspecified. EDMS 22:16 CT Lumbar Spine Wo Con In Process Unspecified. EDMS 22:16 CT Pelvis wo Cont In Process Unspecified. EDMS 23:25 Provided Education on: d/c teaching. km8 23:25 No provider procedures requiring assistance completed. IV discontinued, intact, km8 bleeding controlled, No redness/swelling at site. Pressure dressing applied. Administered Medications: 21:40 Drug: morphine IVP or IV 4 mg IVP once over 4 mins Route: IVP; Infused Over: 4 mins; jj7 Site: left forearm; 22:34 Follow up: Response: No adverse reaction; Pain is decreased; RASS: Alert and Calm (0) km8 21:40 Drug: Ondansetron IVP 4 mg IVP once; over 2 minutes Route: IVP; Site: left forearm; jj7 22:34 Follow up: Response: No adverse reaction km8 23:24 Drug: traMADol PO 50 mg PO once Route: PO; km8 23:25 Follow up: Response: No adverse reaction km8 Medication: 21:30 VIS not applicable for this client. jj7 Outcome: 23:06 Discharge ordered by MD. riddle 23:26 Discharged to home via wheelchair, with family, km8 23:26 Condition: good 23:26 Discharge instructions given to patient, family, Instructed on discharge instructions, follow up and referral plans. medication usage, Demonstrated understanding of instructions, follow-up care, medications, Prescriptions given X 2, 23:26 Patient left the ED. km8 Signatures: Dispatcher [employer] EDMS Davis Salgado, RN RN Terrence Millard RN RN jj7 Topher Sher MD MD sp4 Co[facility] Evelyne Sage RN RN km8
--- NOTE | 2023-04-16 23:07 | EDPHYS ---
Physician Documentation [facility] Name: Carlos Salgado Age: 77 yrs Sex: Male : 1945 Arrival Date: 04/16/2023 Time: 20:54 Bed 2 Private MD: ED Physician Topher Sher HPI: 04/16 21:01 This 77 yrs old Male presents to ER via Unassigned with complaints of Fall sp4 Injury. 23:10 PMH - Allergies: No Known Allergies PMHx: Diabetes - NIDDM; Hypertension; Cirrhosis of sp4 liver PSHx: Appendectomy. 23:18 Patient presents with EMS after he accidentally fell into the yard backwards , patient sp4 states he fell and sustained injury to the mid to lower thoracic back with resultant injury and difficulty walking. Patient was not able to stand up and walk at the scene. Patient has history of hereditary liver cirrhosis he is currently being managed by [facility] polisher in [facility]. Patient has chronic ascites he is being managed with spironolactone and Lasix.. . Historical: - Allergies: 21:07 No Known Allergies; bp - PMHx: 21:07 cirrhosis of liver; Diabetes - NIDDM; Hypertension; bp - PSHx: 21:07 Appendectomy; bp - Immunization history:: Adult Immunizations up to date. - Social history:: Smoking status: Patient denies any tobacco usage or history of. - Family history:: not pertinent. ROS: 23:18 Constitutional: Negative for fever, chills, and weight loss, Eyes: Negative for injury, sp4 pain, redness, and discharge, Back: Positive: Acute injury to mid to lower thoracic spine 23:18 All other systems are negative, Exam: 23:18 Constitutional: This is a well developed, well nourished patient who is awake, alert, sp4 and in no acute distress. This is a frail elderly gentleman who is resting on the bed. Complaining of midthoracic spinal pain. Head/Face: Normocephalic, atraumatic. Eyes: Pupils equal round and reactive to light, extra-ocular motions intact. Lids and lashes normal. Conjunctiva and sclera are not injected. Cornea within normal limits. Periorbital areas with no swelling, redness, or edema. ENT: Nares patent. No nasal discharge, no septal abnormalities noted. Tympanic membranes are normal and external auditory canals are clear. Oropharynx with no redness, swelling, or masses, exudates, or evidence of obstruction, uvula midline. Mucous membranes moist. Neck: Trachea midline, no thyromegaly or masses palpated, and no cervical lymphadenopathy. Supple, full range of motion without nuchal rigidity, or vertebral point tenderness. Chest/axilla: Normal chest wall appearance and motion. Nontender with no deformity. No lesions are appreciated. Cardiovascular: Regular rate and rhythm with a normal S1 and S2. No gallops, murmurs, or rubs. Normal PMI, no JVD. No pulse deficits. Respiratory: Lungs have equal breath sounds bilaterally, clear to auscultation and percussion. No rales, rhonchi or wheezes noted. No increased work of breathing, no retractions or nasal flaring. Abdomen/GI: Soft, non-tender, with normal bowel sounds. No distension or tympany. No guarding or rebound. No evidence of tenderness throughout. Large volume ascites which is nontense Back: Posterior lower thoracic tenderness to palpation with moderate kyphosis with no step-off or deformity Male : Normal genitalia with no discharge or lesions. Skin: Warm, dry with normal turgor. Normal color with no rashes, no lesions, and no evidence of cellulitis. MS/ Extremity: Pulses equal, no cyanosis. Neurovascular intact. Full, normal range of motion. Posterior thoracic spinal pain to palpation no step-off Neuro: Awake and alert, GCS 15, oriented to person, place, time, and situation. Cranial nerves II-XII grossly intact. Motor strength 5/5 in all extremities. Sensory grossly intact. Psych: Awake, alert, with orientation to person, place and time. Behavior, mood, and affect are within normal limits Vital Signs: 21:30 BP 123 / 61; Pulse 63; Resp 16; Pulse Ox 97% on R/A; km8 21:45 BP 113 / 59; Pulse 62; Resp 16; Pulse Ox 96% on R/A; km8 22:30 BP 115 / 70; Pulse 60; Pulse Ox 99% on R/A; km8 22:34 BP 106 / 59; Pulse 61; Resp 16; Pulse Ox 99% on R/A; km8 MDM: 21:09 Patient medically screened. sp4 23:18 Differential diagnosis: abrasion, closed head injury, contusion, fracture, laceration, sp4 multiple trauma, sprain, strain. 23:23 Data reviewed: vital signs, nurses notes, EMS record, old medical records, radiologic sp4 studies, CT scan. Consideration of Admission/Observation Escalation of care including admission/observation considered. ED course: After pain management patient was able to stand up and ambulate and and has no sign of neurologic compromise. Patient is stable for discharge home with as needed tramadol and Flexeril. CT T-spine L-spine and pelvis revealed no acute bony fracture.. 04/16 21:31 Order name: CT Thoracic Spine Wo Cont; Complete Time: 22:53 sp4 04/16 21:31 Order name: CT Lumbar Spine Wo Con; Complete Time: 22:53 sp4 04/16 21:32 Order name: CT Pelvis wo Cont; Complete Time: 23:04 sp4 04/16 21:25 Order name: Saline Lock; Complete Time: 22:21 sp4 Administered Medications: 21:40 Drug: morphine IVP or IV 4 mg IVP once over 4 mins Route: IVP; Infused Over: 4 mins; jj7 Site: left forearm; 22:34 Follow up: Response: No adverse reaction; Pain is decreased; RASS: Alert and Calm (0) km8 21:40 Drug: Ondansetron IVP 4 mg IVP once; over 2 minutes Route: IVP; Site: left forearm; jj7 22:34 Follow up: Response: No adverse reaction km8 23:24 Drug: traMADol PO 50 mg PO once Route: PO; km8 23:25 Follow up: Response: No adverse reaction km8 Disposition Summary: 04/16/23 23:06 Discharge Ordered Notes: Location: Home sp4 Problem: new sp4 Symptoms: have improved sp4 Condition: Stable sp4 Diagnosis - Contusion of back wall of thorax sp4 - Acute fall at home, contusion of thoracic spine, contusion of upper back, physical sp4 debility, large volume ascites, history of hereditary liver cirrhosis Followup: sp4 - With: Private Physician - When: 7 - 10 days - Reason: Recheck today's complaints Discharge Instructions: - Discharge Summary Sheet sp4 - Chest Contusion, Adult, [id number] sp4 Forms: - Patient Portal Instructions sp4 Prescriptions: - Cyclobenzaprine 10 mg Oral Tablet - take 1 tablet ORAL route every 8 hours As needed; 30 tablet; Refills: 0, sp4 Product Selection Permitted - Tramadol 50 mg Oral tablet - take 1 tablet ORAL route every 8 hours as needed; 20 tablet; Refills: 0, sp4 Product Selection Permitted Signatures: Dispatcher [employer] Davis Carmichael RN RN bp Terrence Camarena RN RN jj7 Topher Sher MD MD sp4 Evelyne Sage RN RN km8
[2023-04-16] MEDS ORDERED: TRAMADOL HCL 50 MG TAB ONE (23:28)
[2023-04-16 23:46] VITALS: O2SAT 99
[2023-04-16 23:47] VITALS: BP 106/59
== END 2023-04-16 23:26 | disposition home or self-care (01) ==
LOC: ER 20:54
DX: S20.229A Contusion of unspecified back wall of thorax, initial encounter (principal); S24.109A Unspecified injury at unspecified level of thoracic spinal cord, initial encounter; R18.8 Other ascites; K74.60 Unspecified cirrhosis of liver; I10 Essential (primary) hypertension; R54 Age-related physical debility
CPT/HCPCS: 72131; 72128; 72192; 96375; 96374; 99284; J7613; J2405